=== PATIENT | female | born 1960 | race Caucasian/White ===

== ENCOUNTER → 2016-08-18 | Outpatient (CLI) | payer OTHER ==
[~2016-08-18] MED LIST: ASPEC325 PO; CLB200 PO; CYM/30 PO; ESTR2 PO; LEVO50TA PO; RISP2TAB3 PO
== END | disposition home or self-care (01) ==
LOC: C.CPL 12:03
PROVIDERS: ATTEND Orthopaedic Surgery Sports Medicine
DX: M79.671 Pain in right foot (principal)

== ENCOUNTER → 2017-09-07 | Outpatient (CLI) | payer OTHER | END | disposition home or self-care (01) | LOC: C.CPL 10:57 | PROVIDERS: ATTEND Orthopaedic Surgery | DX: S43.421D Sprain of right rotator cuff capsule, subsequent encounter (principal); X58.XXXD Exposure to other specified factors, subsequent encounter ==

== ENCOUNTER 2020-04-15 11:29 | Inpatient (IN) ==
--- NOTE | 2020-03-18 16:00 | PAT Medication Instructions ---
Medication Instructions Date of Service March 18, 2020 Home Medications levothyroxine 50 mcg PO QAM omeprazole 20 mg PO QAM buspirone 15 mg PO BID estradiol 0.5 mg PO QAM propranolol 40 mg PO BID topiramate 100 mg PO BID trazodone 25 mg PO HS azelastine 2 spray INTRANASAL BID PRN escitalopram oxalate [Lexapro] 10 mg PO QAM Continue as directed estradiol 0.5 mg PO QAM (unless surgeon instructs otherwise) Take morning of surgery With a small sip of water, OTHERWISE NOTHING TO EAT OR DRINK AFTER MIDNIGHT: levothyroxine 50 mcg PO QAM omeprazole 20 mg PO QAM buspirone 15 mg PO BID propranolol 40 mg PO BID topiramate 100 mg PO BID azelastine 2 spray INTRANASAL BID PRN (if needed) escitalopram oxalate [Lexapro] 10 mg PO QAM Take evening before surgery buspirone 15 mg PO BID propranolol 40 mg PO BID topiramate 100 mg PO BID trazodone 25 mg PO HS azelastine 2 spray INTRANASAL BID PRN (if needed) Other Notes If you have any questions please call us at [phone] or [phone] or [phone] or [phone]
--- NOTE | 2020-03-21 13:06 | Anesthesiology Consultation ---
Date of Service March 21, 2020 Assessment & Plan (1) Encounter for pre-operative examination: - Per assessment on 03/21: Travel screen negative. No known COVID-19 positive contacts or current COVID-19 related symptoms. Surgeon arranging preop COVID testing. Awaiting results. - S/P right foot bunionectomy and MTP arthroplasty: 03/31/18: LMA#4 at [facility] Chart Review Chart Review: Acceptable Risk for Surgery (pending surgeon-ordered PCP clearance) and Patient seen in Pre Admission Testing Teaching & Discussion Pre-Anesthesia Teaching/Discussion Notes: Instructed NPO after midnight before surgery,except medications with 15 cc of water. Medication instructions provided according to the PAT guidelines. History Surgery Operation Date: 04/15/20 10:20 Proposed Procedures p Right Shoulder Resurfacing Versus - DO audrey Adrian Hemiarthroplasty Versus - DO audrey Adrian Total Shoulder Arthroplasty - Dimas Quintero DO Height/Weight Height: 5 ft 3.5 in Weight: 75.8 kg Allergies Allergy/AdvReac Type Severity Reaction Status Date / Time Penicillins Allergy Intermediate Hives Verified 03/21/20 13:20 vancomycin Allergy Intermediate Rash Verified 03/21/20 13:20 tramadol Allergy Mild Rash Verified 03/21/20 13:20 tizanidine [From Zanaflex] AdvReac Severe Hallucinati Unverified 03/21/20 13:20 ons metoclopramide [From Reglan] AdvReac Unknown Constipatio Verified 03/21/20 13:20 n morphine AdvReac Unknown N/V Verified 02/29/20 10:43 Medications Home Medications Medication Instructions Recorded Confirmed Last Taken levothyroxine 50 mcg PO QAM 03/02/18 02/29/20 06/08/19 omeprazole 20 mg PO QAM 03/02/18 02/29/20 06/08/19 buspirone 15 mg PO BID 02/05/19 02/29/20 06/08/19 estradiol 0.5 mg PO QAM 02/05/19 02/29/20 06/08/19 propranolol 40 mg PO BID 02/05/19 02/29/20 06/08/19 topiramate 100 mg PO BID 06/08/19 02/29/20 06/08/19 trazodone 25 mg PO HS 01/03/1802/29/20 06/07/19 azelastine 2 spray INTRANASAL BID PRN 02/29/20 02/29/20 Unknown escitalopram oxalate [Lexapro] 10 mg PO QAM 02/29/20 02/29/20 Unknown Past Medical History Medical History (Updated 03/21/20 @ 15:17 by Sienna Friend) Anxiety Claustrophobia Depression DJD (degenerative joint disease) Fatty liver hx Fibromyalgia GERD (gastroesophageal reflux disease) controlled HTN (hypertension) Hypothyroidism Kidney disease, chronic, stage III (moderate, EGFR 30-59 ml/min) Migraine hx, botox injections q3 months, follows with [facility] neurology (Dr. Okeefe) MVP (mitral valve prolapse) no recent echo/no murmur at PAT visit Osteoarthritis Pre-diabetes diet controlled Exercise / Class Metabolic Activity III < 4 Walking/Shop/Light housework Past Family History Family History Father Family history of diabetes mellitus Past Surgical History Surgical History History of colonoscopy History of esophagogastroduodenoscopy (EGD) History of foot surgery R/L great toe surgeries S/P right foot bunionectomy and MTP arthroplasty: 03/31/18: LMA#4 at [facility] History of herniorrhaphy right inguinal repair History of liver biopsy History of partial hysterectomy History of tonsillectomy Hx of arthroscopy of shoulder right x2, left x1 Hx of carpal tunnel repair R/L Hx of section X3 Hx of cholecystectomy Hx of elbow surgery R/L Hx of foot surgery R/L Hx of partial thyroidectomy "left side"/for nodules Hx of thumb surgery R/L "joint removed" Hx of total knee replacement R/L Past Anesthesia History No Hx of Anesthesia Complications (except PONV with remote surgeries) and No Family Hx of Anesthesia Complications History of PONV No Hx of Motion Sickness and History of PONV (with remote surgeries) Social History Smoking Status: Never smoker Do You Dip or Chew Tobacco: No Hx Alcohol Use: No Hx Substance Use: No substance use type: does not use Review of Systems Patient denies chest pain, shortness of breath, dyspnea on exertion, joint pain, reflux, cough, wheezing, palpitations. Physical Exam Vital Signs VITALS BP 114/73 P 59 TEMP 98.1 SP02 98%RA RESP 18 PHYSICAL Full neck and c-spine range of motion. Full TMJ range of motion. TMD 2.5 finger breaths Mallampati Score 2 Dentition: missing molars, upper right side root canal repair Lungs: clear throughout to auscultation Cardiac: regular rate and rhythm, no murmurs noted Spine: normal Carotid arteries: negative bruit Extremities: no edema Testing Laboratory Results PT 10.2 Seconds (9.0-12.0) 03/21/20 13:25 INR 1.0 (0.9-1.1) 03/21/20 13:25 APTT 27.5 Seconds (21.0-31.0) 03/21/20 13:25 Urine Color Yellow 03/21/20 Unknown Urine Appearance Clear (Clear) 03/21/20 Unknown Urine pH 7.5 (4.5-7.5) 03/21/20 Unknown Ur Specific [place] 1.008 (1.000-1.030) 03/21/20 Unknown Urine Protein Negative (Negative) 03/21/20 Unknown Urine Glucose (UA) Negative (Negative) 03/21/20 Unknown Urine Ketones Negative (Negative) 03/21/20 Unknown Urine Nitrite Negative (Negative) 03/21/20 Unknown Ur Leukocyte Esterase Negative (Negative) 03/21/20 Unknown Electrocardiogram Date: 03/21/20 Findings: + NSR @ (61) Chest X-Ray Date: 03/21/20 FINDINGS: PA and lateral chest radiographs are compared to study dated 02/12/2019. The cardiomediastinal silhouette is unremarkable. The lungs and pleural spaces are clear. There is no pneumothorax. The bony thorax appears intact. Cholecystectomy clips are seen in the right upper quadrant. IMPRESSION: No active disease in the chest.
--- NOTE | 2020-03-21 13:46 | XRay Report ---
TWO VIEW CHEST CLINICAL HISTORY: Preoperative examination. FINDINGS: PA and lateral chest radiographs are compared to study dated 02/12/2019. The cardiomediastin al silhouette is unremarkable. The lungs and pleural spaces are clear. There is no pneumothorax. The bony thorax appears intact. Cholecystectomy clips are seen in the right upper quadrant. IMPRESSION: No active disease in the chest. ACT 112: Negative or not required by law. Electronically signed by: Flavio Arriola M.D. 03/21/2020 1:45 PM
--- NOTE | 2020-03-21 14:14 | Electrocardiogram Report ---
Test Reason : Blood Pressure : / mmHG Vent. Rate : 061 BPM Atrial Rate : 061 BPM P-R Int : 128 ms QRS Dur : 080 ms QT Int : 438 ms P-R-T Axes : 048 052 043 degrees QTc Int : 440 ms Normal sinus rhythm Normal ECG When compared with ECG of 12-FEB-2019 15:30, No significant change was found Confirmed by Silverio Dukes ([id number]) on 03/21/2020 2:14:07 PM Referred By: Dimas Quintero Confirmed By:Silverio Dukes
[2020-03-21 14:32] LABS: Appearance Urine Clear (Clear); Bilirubin Urine Negative (Negative); Blood Urine Negative (Negative); Color Urine Yellow; Glucose Urine UA Negative (Negative); Ketones Urine Negative (Negative); Leukocyte Esterase Urine Negative (Negative); Nitrite Urine Negative (Negative); Protein Urine Negative (Negative); Specific Gravity Urine 1.008 (1.000-1.030); Urobilinogen Urine Negative (Negative); pH Urine 7.5 (4.5-7.5)
[2020-03-21 14:43] LABS: Partial Thromboplastin Time 27.5 Seconds (21.0-31.0); Prothrombin Time 10.2 Seconds (9.0-12.0)
--- NOTE | 2020-03-26 11:55 | History & Physical Report ---
Date of Service March 26, 2020 date of surgery: 04/15/20 procedure: Right Shoulder Resurfacing Versus total shoulder replacement Assessment & Plan (1) Degenerative arthritis of right shoulder region: Risks and benefits of procedure discussed in detail today, patient would like to proceed with a right shoulder resurfacing vs TSA at [facility] as scheduled. will obtain medical clearance prior to surgery as well as obtain PATs at [facility]. Will f/u 2 weeks post op for routine post-operative care and x-ray, sooner if having any problems. will make arrangements for HHPT at the time of discharge. At this point in time, has failed conservative measures and would like to proceed with surgical intervention. History of Present Illness Chief Complaint: right shoulder pain Primary Care Provider: Shane Lorenzo DO Ms Casas is a 59 year old female who is here for a follow up of right shoulder pain, presents for pre op eval prior to right shoulder resurfacing vs total shoulder replacement at [facility]. She presents with pain and decreased range of motion. She states that the symptoms have been chronic non-traumatic and occurs intermittently. The problem is unchanged. Currently the patient states that the symptoms are moderate-severe. The pain is described as aching and throbbing. The symptoms occur intermittently. She rates her current pain as 6/10. The symptoms are aggravated by daily activities, rotation, repetitive activities and sleeping on the affected side. Fannie states that the symptoms are relieved by no specific activity. In addition to right shoulder pain the patient is also experiencing decreased mobility, difficulty initiating sleep and weakness. The patient has had a previous x-ray and MRI. Patient had cortisone and visco injections. Allergies Allergy/AdvReac Type Severity Reaction Status Date / Time Penicillins Allergy Intermediate Hives Verified 03/21/20 13:20 vancomycin Allergy Intermediate Rash Verified 03/21/20 13:20 tramadol Allergy Mild Rash Verified 03/21/20 13:20 tizanidine [From Zanaflex] AdvReac Severe Hallucinati Unverified 03/21/20 13:20 ons metoclopramide [From Reglan] AdvReac Unknown Constipatio Verified 03/21/20 13:20 n morphine AdvReac Unknown N/V Verified 02/29/20 10:43 Home Medications Home Medications Medication Instructions Recorded Confirmed Type levothyroxine 50 mcg PO QAM 03/02/18 02/29/20 History omeprazole 20 mg PO QAM 03/02/18 02/29/20 History buspirone 15 mg PO BID 02/05/19 02/29/20 History estradiol 0.5 mg PO QAM 02/05/19 02/29/20 History propranolol 40 mg PO BID 02/05/19 02/29/20 History topiramate 100 mg PO BID 06/08/19 02/29/20 History trazodone 25 mg PO HS 06/08/19 02/29/20 History azelastine 2 spray INTRANASAL BID PRN 02/29/20 02/29/20 History escitalopram oxalate [Lexapro] 10 mg PO QAM 02/29/20 02/29/20 History Past Med/Surg History Medical History Anxiety Claustrophobia Depression DJD (degenerative joint disease) Fatty liver hx Fibromyalgia GERD (gastroesophageal reflux disease) controlled HTN (hypertension) Hypothyroidism Kidney disease, chronic, stage III (moderate, EGFR 30-59 ml/min) Migraine hx, botox injections q3 months, follows with [facility] neurology (Dr. Okeefe) MVP (mitral valve prolapse) no recent echo/no murmur at PAT visit Osteoarthritis Pre-diabetes diet controlled Surgical History History of colonoscopy History of esophagogastroduodenoscopy (EGD) History of foot surgery R/L great toe surgeries S/P right foot bunionectomy and MTP arthroplasty: 03/31/18: LMA#4 at [facility] History of herniorrhaphy right inguinal repair History of liver biopsy History of partial hysterectomy History of tonsillectomy Hx of arthroscopy of shoulder right x2, left x1 Hx of carpal tunnel repair R/L Hx of section X3 Hx of cholecystectomy Hx of elbow surgery R/L Hx of foot surgery R/L Hx of partial thyroidectomy "left side"/for nodules Hx of thumb surgery R/L "joint removed" Hx of total knee replacement R/L Family History Father Family history of diabetes mellitus Social History Smoking Status: Never smoker Second Hand Exposure: No; Do You Dip or Chew Tobacco: No; Hx Alcohol Use: No Hx Substance Use: No Preferred Language: Thai Communication Ability: Effective Safety Physician Required: No Beliefs That Will Affect Care: None Current Living Situation: Spouse Other Information That Helps Us Care for You: No Feels Safe at Home: Yes Safety Concerns: Feels Safe At This Time Assistive Devices: Glasses Review of Systems Review of Systems: All systems reviewed & are unremarkable except as noted in HPI & below Constitutional: no fever, no chills and no sweats Respiratory: no cough and no dyspnea Cardiovascular: no chest pain, no dyspnea and no orthopnea Gastrointestinal: no abdominal pain, no nausea and no vomiting Musculoskeletal: as per Subjective / HPI Physical Exam Physical Exam: HT: 5ft 3in WT: 75.8kg Constitutional: WD/WN, vitals as above no acute distress Respiratory: normal respiratory effort, lungs clear to auscultation no respiratory distress, no labored breathing and does not use accessory muscles Cardiovascular: RRR, no murmur, no edema Gastrointestinal (Abdomen): normal bowel sounds, soft, nontender, no hepatosplenomegaly Musculoskeletal: Right Shoulder: there is no ecchymosis, mild crepitation with active motion, Tenderness anterior aspect shoulder and AC joint. Belly press - Positive. Thayer Positive. Cross Body Positive. Neer's - positive. Strength tests - External rotation 4/5, Supraspinatus 4/5 no atrophy, Right shoulder ROM Active ROM - Flexion: 120 degrees, Ext Rot 90 Flex: 30 degrees, Abduction: 45 degrees, Factors: pain, Description: Pain with ROM. Passive ROM - Factors: pain. Neurovascular- Radial pulse palpable, radial/median/ulnar nerves intact. Results & Data Results & Data ([facility]) Laboratory Results Laboratory Results PT 10.2 Seconds (9.0-12.0) 03/21/20 13:25 INR 1.0 (0.9-1.1) 03/21/20 13:25 APTT 27.5 Seconds (21.0-31.0) 03/21/20 13:25 PTT Ratio 1.0 03/21/20 13:25 Albumin 3.3 gm/dl (3.4-5.0) L 03/21/20 13:25 Urine Color Yellow 03/21/20 Unknown Urine Appearance Clear (Clear) 03/21/20 Unknown Urine pH 7.5 (4.5-7.5) 03/21/20 Unknown Ur Specific [place] 1.008 (1.000-1.030) 03/21/20 Unknown Urine Protein Negative (Negative) 03/21/20 Unknown Urine Glucose (UA) Negative (Negative) 03/21/20 Unknown Urine Ketones Negative (Negative) 03/21/20 Unknown Urine Blood Negative (Negative) 03/21/20 Unknown Urine Nitrite Negative (Negative) 03/21/20 Unknown Urine Bilirubin Negative (Negative) 03/21/20 Unknown Urine Urobilinogen Negative (Negative) 03/21/20 Unknown Ur Leukocyte Esterase Negative (Negative) 03/21/20 Unknown Blood Type AB Negative 03/21/20 13:25 Antibody Screen NEGATIVE 03/21/20 13:25 Diagnostic Findings right shoulder imaging showing degenerative changes noted glenohumeral joint, with joint space narrowing and osteophyte formation. no acute bony pathology.
[~2020-04-15 11:29] MED LIST changes: +ACETAMINOPHEN 500 MG TAB PO SCH; -ASPEC325 PO; -CLB200 PO; -CYM/30 PO; +CeleBREX 200 MG CAP PO SCH; +DEXAMETHASONE SOD INJ 4 MG/ML VIAL ONE; +EPINEPHrine INJ 1 MG/ML AMP ONE; -ESTR2 PO; +FAMOTIDINE 20 MG TAB PO SCH; +GABAPENTIN 600 MG DOSE PO SCH; -LEVO50TA PO; +LR 15ML/HR IV SCH; +METOCLOPRAMIDE HCL 10 MG TABLET PO SCH; -RISP2TAB3 PO; +ROPIVACAINE 0.5% 5 MG/ML 30 ML VIAL ONE; +ROPIVACAINE 0.5% HCL/PF 150 MG, BUPIVACAINE 0.5% MPF 30 ML, EPINEPHrine 30MG/30ML (OR U... INSTIL SCH; +TRANEXAMIC ACID 1,000 MG **IV Intra-op IV SCH; +TRANEXAMIC ACID 1,000 MG **IV Pre-op IV SCH; +ceFAZolin 1000MG 1,000 MG/7.5 ML SYR IV SCH; +dexAMETHasone 4 MG TAB PO SCH
[2020-04-15] MEDS ORDERED: fentaNYL citrate 100 MCG/2 ML VIAL ONE (13:00)
[2020-04-15] MEDS ORDERED: MIDAZOLAM HCL 1 MG/ML 2ML VIAL ONE ×2 (13:00)
[2020-04-15] MEDS ORDERED: LIDOCAINE HCL 2% 2 ML VIAL/AMP(20MG/ML) INFIL ONE (13:00)
[2020-04-15] MEDS ORDERED: ONDANSETRON INJ 2 MG/ML 2 ML VIAL ONE (13:00)
[2020-04-15] MEDS ORDERED: PROPOFOL IV EMULSION 10 MG/ML 20 ML VIAL IV ONE (13:00)
[2020-04-15] MEDS ORDERED: GLYCOPYRROLATE 0.2 MG/ML VIAL ONE (13:00)
[2020-04-15] MEDS ORDERED: DEXAMETHASONE SOD INJ 4 MG/ML VIAL ONE (13:00)
[2020-04-15] MEDS ORDERED: NEOSTIGMINE METHYLSULFATE 5 MG/5 ML SYR ONE (13:00)
--- NOTE | 2020-04-15 13:07 | History & Physical Bridge Note ---
Date of Service April 15, 2020 History & Physical Bridge Note I have examined the patient, reviewed the History & Physical and in the interval since the performance of the History & Physical I have noted the following changes of clinical significance: no changes noted
[2020-04-15] MEDS ORDERED: BACITRACIN INJ 50,000 UNIT VIAL ONE (13:34)
[2020-04-15] MEDS ORDERED: ORTHO JOINT ANESTHETIC ONE (13:34)
[2020-04-15] MEDS ORDERED: HYDROmorphone INJ 1 MG/ML SYRINGE IV PRN (13:54)
[2020-04-15] MEDS ORDERED: ONDANSETRON INJ 2 MG/ML 2 ML VIAL IV PRN ×2 (13:54→17:47)
[2020-04-15] MEDS ORDERED: ATROPINE SULFATE 0.1 MG/ML 10ML SYR IV PRN (13:54)
[2020-04-15] MEDS ORDERED: FLUMAZENIL 0.1 MG/1 ML 10 ML VIAL IV PRN (13:54)
[2020-04-15] MEDS ORDERED: NALOXONE HCL 0.4 MG/1 ML VIAL/CARP IV PRN ×2 (13:54→17:47)
[2020-04-15] MEDS ORDERED: ePHEDrine sulfate 50 MG/ML AMP IV PRN (13:54)
[2020-04-15] MEDS ORDERED: fentaNYL citrate 100 MCG/2 ML VIAL IV PRN (13:54)
[2020-04-15] MEDS ORDERED: LABETALOL HCL IV 5 MG/ML 20ML IV PRN (13:54)
[2020-04-15] MEDS ORDERED: PROMETHAZINE HCL 12.5 MG in SODIUM CHLORIDE 0.9% 50 ML IV PRN (13:54)
--- NOTE | 2020-04-15 15:39 | Operative Report ---
Post Operative Report Pre & Post Diagnosis Operation Date: 04/15/20 13:25 Pre-Op Diagnosis: Primary Osteoarthritis, Right Shoulder Post-Op Diagnosis: Primary Osteoarthritis, Right Shoulder I identified the patient and participated in the time-out.: Yes Procedure Operation Date: 04/15/20 13:25 Actual Procedures p Right Shoulder Resurfacing(Right) utilizingTournier 43 x 16 resurfacing hemiarthroplasty- Dimas Quintero DO Surgeon Dimas Quintero DO Piece Hand Jeramy BERGER Estimated Blood Loss 15 Findings Consistent with Post-Op Diagnosis Patient presents with grade 4 glenohumeral DJD involving humeral head multiple arthroscopies with eburnated bone failed attempted conservative management she had inferior osteophytes no rotator cuff tear eburnated humeral head articular cartilage Specimens Bone and cartilage Drains Medium bore Hemovac Anesthesia Type General Regional Disposition Accompanied Patient To Recovery: No Disposition: Recovery Room Indications Patient presents for right glenohumeral resurfacing after failed attempted conservative management with multiple arthroscopies over a period of 20 years with arthroscopic evidence of grade 4 humeral articular surface inferior osteophytes narrowed joint space she is failed times it conservative management clinic physical therapy anti-inflammatories Visco supplementations relative rest and activity modification Description of Procedure After initiation of general anesthesia with a scalene block the right extremity socially prepped draped sterile fashion with surgery slightly deltopectoral incision was made dissection carried down through subtenons tissues to the region of deltopectoral interval the cephalic vein was carefully retracted lateralward with the deltoid muscle the interval was developed to the region of the anterior aspect of the subscapularis the subscapularis was evaluated and was of some reflected off the anterior humeral head and with the 4 stay sutures of #0 Ethibond there was no be evident evidence of a glenohumeral with with with humeral head grade 4 eburnated exposed bone with inferior osteophytes noted wh ich were removed the humeral head was externally rotated and delivered from the wound the wound was irrigated this for the glenoid was inspected the glenoid labrum was inspected was not torn or detached the glenoid was inspected and the cartilage to be in satisfactory condition subsequently the humeral head was sized to a 43 x 16 gave anatomic recreation of normal anatomy socially this was reversed reamed after placement of the pin in the humeral head all bony material in the cartilage shavings were removed the wound was irrigated once again a trial was placed excellent stability both anterior posterior inferior superior was noted the subsequently now 3 a #5 FiberWire's were placed through a bony portion of the lateral humeral head in the region of the lesser tuberosity for reapproximation of the subscapularis back to bone later subsequently the final component was placed and was tapped tapped into position with the Vizcaino tap and noted to be excellent fixation subsequently the sutures were used to repair the subscapularis tendon back to the region of the footprint of the previous attachment site biceps tendon was protected at all times the repair was reinforced with #0 Ethibond which been placed as retraction sutures were interval was closed with #1 Vicryl subcu was closed deltopectoral oval was closed with #0 Vicryl subcuticular 3-0 Vicryl skin was closed skin clips sterile compressive dressings placed a medium Hemovac in place in the deep wound please note AB [place] was necessary prepping draping retraction wound closure of defect subcu skin was necessary for the case I attest to the content of the Intraoperative Record and any orders documented therein. Any exceptions are noted below.
[2020-04-15] MEDS ORDERED: ROCURONIUM BROMIDE 10 MG/ML 5 ML VIAL IV ONE (15:40)
--- NOTE | 2020-04-15 16:28 | Anesthesiology Progress Note ---
Date of Service April 15, 2020 Anesthesia Post Procedure Vital Signs Vital Signs: Temp Pulse Resp BP Pulse Ox 04/15/20 16:20 79 16 123/72 97 04/15/20 16:10 82 16 108/61 97 04/15/20 16:00 36.4 C L 86 16 109/68 95 04/15/20 12:26 36.8 C 62 20 132/68 97 Pain Intensity Bilateral Shoulder: Pain Intensity: 8 Neck: Pain Intensity: 8 Lower Back: Pain Intensity: 8 Transfer of Care Handoff Completed per policy Notes Mental Status: alert / awake / arousable and participated in evaluation Patient Amnestic to Procedure: Yes Nausea / Vomiting: adequately controlled Pain: adequately controlled Airway Patency, RR, SpO2: stable & adequate BP & HR: stable & adequate Hydration State: stable & adequate Anesthetic Complications: no major complications apparent and Pt Satisfied with anesthetic care
--- NOTE | 2020-04-15 16:37 | XRay Report ---
XR shoulder RT min 2V routine CLINICAL HISTORY: Post shoulder surgery COMPARISON: None FINDINGS: Alignment of the right shoulder resurfacing is anatomic. There is no fracture. There is no unexpected radiopaque foreign body. A previous distal right clavicular resection is noted. There are skin shayy. IMPRESSION: Expected findings following right shoulder resurfacing. ACT 112: Negative or not required by law. Electronically signed by: Adi Momin M.D. 04/15/2020 4:36 PM
[2020-04-15] MEDS ORDERED: MAGNESIUM HYDROXIDE SUSP 30 ML UDC PO PRN (17:47)
[2020-04-15] MEDS ORDERED: oxyCODONE HCL IR 5 MG TAB (IMMEDIATE RELEASE) PO PRN (17:47)
[2020-04-15] MEDS ORDERED: bisacodyL 10 MG SUPP PR PRN (17:47)
[2020-04-15] MEDS ORDERED: HYDROmorphone INJ 0.5 MG/0.5 ML SYR IV PRN (17:47)
[2020-04-15] MEDS ORDERED: SODIUM CHLORIDE 0.9% 1000ML 1,000 ML IV SCH (19:00)
[2020-04-15] MEDS: PROPRANOLOL HCL 20 MG TAB PO SCH (20:43)
[2020-04-15] MEDS: DOCUSATE SODIUM 100 MG CAP PO SCH (20:44)
[2020-04-15] MEDS: busPIRone 15 MG TAB PO SCH (20:44)
[2020-04-15] MEDS: TOPIRAMATE 100 MG TAB PO SCH (20:45)
[2020-04-15] MEDS ORDERED: traZODone HCL 50 MG TAB PO SCH (21:00)
[2020-04-15] MEDS ORDERED: SENNA 8.6 MG TAB PO SCH (21:00)
[2020-04-15] MEDS: CLINDAMYCIN 600 MG in DEXTROSE 5% 50 ML IV SCH (22:31)
[2020-04-15] MEDS: ACETAMINOPHEN 500 MG TAB PO SCH (22:32)
[2020-04-16] MEDS: CLINDAMYCIN 600 MG in DEXTROSE 5% 50 ML IV SCH (05:31)
[2020-04-16] MEDS: ACETAMINOPHEN 500 MG TAB PO SCH (05:31)
[2020-04-16 06:16] LABS: Hematocrit (blood only) 38.5 % (37-47); Hemoglobin 12.4 g/dL (12.0-16.0); Immature Granulocytes # (auto) 0.02 K/uL (0.00-0.02); Immature Granulocytes % (auto) 0.2 %; Lymphocytes # (auto) 1.44 K/uL (1.2-3.4); Lymphocytes % (auto) 12.1 %; Mean Corpuscular Hemoglobin 29.7 pg (25-34); Mean Corpuscular Hgb Conc 32.2 g/dL (32-36); Mean Corpuscular Volume 92.1 fL (80-100); Mean Platelet Volume 10.7 fL (7.4-10.4); Monocytes # (auto) 0.46 K/uL (0.11-0.59); Monocytes % (auto) 3.9 %; Neutrophils # (auto) 9.97 K/uL (1.4-6.5); Neutrophils % (auto) 83.8 %; Platelet Count 319 K/uL (130-400); RDW Standard Deviation 46.7 fL (36.4-46.3); Red Blood Count 4.18 M/uL (4.2-5.4); White Blood Count 11.89 K/uL (4.8-10.8)
[2020-04-16] MEDS ORDERED: LEVOTHYROXINE SODIUM 50 MCG TABLET PO SCH (06:30)
[2020-04-16 06:37] LABS: BUN Creatinine Ratio 10.6 (10-20); Calcium 8.6 mg/dl (8.5-10.1); Creatinine Clr Calc Pharmacy 52.8 ml/min; Est GFR (African American) 62.1; Est GFR (Non-African American) 53.6; Potassium 3.7 mmol/L (3.5-5.1)
[2020-04-16] MEDS: busPIRone 15 MG TAB PO SCH (08:55)
[2020-04-16] MEDS: DOCUSATE SODIUM 100 MG CAP PO SCH (08:55)
[2020-04-16] MEDS: TOPIRAMATE 100 MG TAB PO SCH (08:55)
[2020-04-16] MEDS: PROPRANOLOL HCL 20 MG TAB PO SCH (08:56)
[2020-04-16] MEDS ORDERED: MULTIVITAMIN TAB PO SCH (09:00)
[2020-04-16] MEDS ORDERED: ESCITALOPRAM OXALATE 10 MG TAB PO SCH (09:00)
[2020-04-16] MEDS ORDERED: ASPIRIN 81 MG ECTAB PO SCH (09:00)
--- NOTE | 2020-04-16 09:26 | Orthopedic Progress Note ---
Date of Service April 16, 2020 Assessment & Plan (1) Status post right shoulder hemiarthroplasty: POD #1 s/p Right shoulder resurfacing hemiarthroplasty pt/ot plan for d/c home later today Admission and Anticipated Discharge Date Admission Date: April 15, 2020 Subjective POD #1 s/p Right shoulder resurfacing Review of Systems Constitutional: no fever, no chills and no sweats Respiratory: no cough and no dyspnea Cardiovascular: no chest pain and no dyspnea Gastrointestinal: no abdominal pain, no nausea and no vomiting Physical Exam Physical Exam: Vital Signs Temp 36.8 C 04/16/20 08:00 Pulse 54 L 04/16/20 08:00 Resp 16 04/16/20 08:00 BP 107/66 04/16/20 08:00 Pulse Ox 95 04/16/20 08:00 Intake & Output 04/15/20 04/16/20 04/16/20 18:59 06:59 18:59 Intake Total 1400 / 3166 1766 / 3166 Output Total 15 / 2865 2850 / 2865 Balance 1385 / 301 -1084 / 301 Weight 76.907 kg Intake: IV 400 / 1316 916 / 1316 Cleocin 600 mg In D5w 50 ml @ 108 / 108 100 mls/hr IV Q8H [facility] Rx#: [id number] Lr 1,000 ml @ 15 mls/hr IV . 200 / 200 Q24H [facility] Rx#:[id number] Nss 1000ML 1,0 00 ml @ 80 mls/hr 808 / 808 IV .[id number] [facility] Rx#:[id number] TRANEXAMIC ACI D / 0.7% NACL 1, 200 / 200 000 mg In 100 ml @ 600 mls/hr IV TODAY@0600 [facility] Rx#:[id number] IV Perioperative 1000 / 1000 Oral 850 / 850 Output: Urine 2850 / 2850 Estimated Blood Loss 15 / 15 Other: Weight Measureme nt Method Standing Scale Constitutional: WD/WN, vitals as above no acute distress Musculoskeletal: Right arm: NVDI, Radial +2, dressing clean dry and intact. rad/med/ulnar nerves intact Results & Data ([facility]) Vital Signs (Past 12 Hours) Vital Signs Temp Pulse Resp BP Pulse Ox 04/16/20 08:00 36.8 C 54 L 16 107/66 95 04/16/20 03:14 36.7 C 60 16 108/69 93 04/15/20 23:16 36.5 C 71 16 109/69 94 Laboratory Results Laboratory Results WBC 11.89 K/uL (4.8-10.8) H 04/16/20 05:44 RBC 4.18 M/uL (4.2-5.4) L 04/16/20 05:44 Hgb 12.4 g/dL (12.0-16.0) 04/16/20 05:44 Hct 38.5 % (37-47) 04/16/20 05:44 MCV 92.1 fL (80-100) 04/16/20 05:44 MCH 29.7 pg (25-34) 04/16/20 05:44 MCHC 32.2 g/dL (32-36) 04/16/20 05:44 RDW Std Deviation 46.7 fL (36.4-46.3) H 04/16/20 05:44 RDW Coeff of Marilyn 14.0 % (11.5-14.5) 04/16/20 05:44 Plt Count 319 K/uL (130-400) 04/16/20 05:44 MPV 10.7 fL (7.4-10.4) H 04/16/20 05:44 Immature Gran % (Auto) 0.2 % 04/16/20 05:44 Neut % (Auto) 83.8 % 04/16/20 05:44 Lymph % (Auto) 12.1 % 04/16/20 05:44 [place] % (Auto) 3.9 % 04/16/20 05:44 Eos % (Auto) 0.0 % 04/16/20 05:44 Baso % (Auto) 0.0 % 04/16/20 05:44 Neut # (Auto) 9.97 K/uL (1.4-6.5) H 04/16/20 05:44 Lymph # (Auto) 1.44 K/uL (1.2-3.4) 04/16/20 05:44 [place] # (Auto) 0.46 K/uL (0.11-0.59) 04/16/20 05:44 Eos # (Auto) 0.00 K/uL (0-0.5) 04/16/20 05:44 Baso # (Auto) 0.00 K/uL (0-0.2) 04/16/20 05:44 Immature Gran # (Auto) 0.02 K/uL (0.00-0.02) 04/16/20 05:44 PT 10.2 Seconds (9.0-12.0) 03/21/20 13:25 INR 1.0 (0.9-1.1) 03/21/20 13:25 APTT 27.5 Seconds (21.0-31.0) 03/21/20 13:25 PTT Ratio 1.0 03/21/20 13:25 Sodium 139 mmol/L (136-145) 04/16/20 05:44 Potassium 3.7 mmol/L (3.5-5.1) 04/16/20 05:44 Chloride 110 mmol/L (98-107) H 04/16/20 05:44 Carbon Dioxide 22 mmol/L (21-32) 04/16/20 05:44 Anion Gap 7.0 (3-11) 04/16/20 05:44 BUN 12 mg/dl (7-18) 04/16/20 05:44 Creatinine 1.11 mg/dl (0.6-1.2) 04/16/20 05:44 Est Cr Clr Drug Dosing 52.8 ml/min 04/16/20 05:44 Est GFR ( Amer) 62.1 04/16/20 05:44 Est GFR (Non-Af Amer) 53.6 04/16/20 05:44 BUN/Creatinine Ratio 10.6 (10-20) 04/16/20 05:44 Glucose 122 mg/dl (70-99) H 04/16/20 05:44 POC Glucose 92 mg/dl (70-99) 04/15/20 11:56 Calcium 8.6 mg/dl (8.5-10.1) 04/16/20 05:44 Albumin 3.3 gm/dl (3.4-5.0) L 03/21/20 13:25 Urine Color Yellow 03/21/20 Unknown Urine Appearance Clear (Clear) 03/21/20 Unknown Urine pH 7.5 (4.5-7.5) 03/21/20 Unknown Ur Specific [place] 1.008 (1.000-1.030) 03/21/20 Unknown Urine Protein Negative (Negative) 03/21/20 Unknown Urine Glucose (UA) Negative (Negative) 03/21/20 Unknown Urine Ketones Negative (Negative) 03/21/20 Unknown Urine Blood Negative (Negative) 03/21/20 Unknown Urine Nitrite Negative (Negative) 03/21/20 Unknown Urine Bilirubin Negative (Negative) 03/21/20 Unknown Urine Urobilinogen Negative (Negative) 03/21/20 Unknown Ur Leukocyte Esterase Negative (Negative) 03/21/20 Unknown Blood Type AB Negative 03/21/20 13:25 Antibody Screen NEGATIVE 03/21/20 13:25 Diagnostic Findings XR shoulder RT min 2V routine CLINICAL HISTORY: Post shoulder surgery COMPARISON: None FINDINGS: Alignment of the right shoulder resurfacing is anatomic. There is no fracture. There is no unexpected radiopaque foreign body. A previous distal right clavicular resection is noted. There are skin shayy. IMPRESSION: Expected findings following right shoulder resurfacing.
--- NOTE | 2020-04-17 14:31 | Discharge Summary ---
Date of Service April 17, 2020 Admission HPI Per Admitting Provider Ms Casas is a 59 year old female who is here for a follow up of right shoulder pain, presents for pre op eval prior to right shoulder resurfacing vs total shoulder replacement at [facility]. She presents with pain and decreased range of motion. She states that the symptoms have been chronic non-traumatic and occurs intermittently. The problem is unchanged. Currently the patient states that the symptoms are moderate-severe. The pain is described as aching and throbbing. The symptoms occur intermittently. She rates her current pain as 6/10. The symptoms are aggravated by daily activities, rotation, repetitive activities and sleeping on the affected side. Fannie states that the symptoms are relieved by no specific activity. In addition to right shoulder pain the patient is also experiencing decreased mobility, difficulty initiating sleep and weakness. The patient has had a previous x-ray and MRI. Patient had cortisone and visco injections. Admission Exam Per Admitting Provider Physical Exam: HT: 5ft 3in WT: 75.8kg Constitutional: WD/WN, vitals as above no acute distress Respiratory: normal respiratory effort, lungs clear to auscultation no respiratory distress, no labored breathing and does not use accessory muscles Cardiovascular: RRR, no murmur, no edema Gastrointestinal (Abdomen): normal bowel sounds, soft, nontender, no hepatosplenomegaly Musculoskeletal: Right Shoulder: there is no ecchymosis, mild crepitation with active motion, Tenderness anterior aspect shoulder and AC joint. Belly press - Positive. Thayer Positive. Cross Body Positive. Neer's - positive. Strength tests - External rotation 4/5, Supraspinatus 4/5 no atrophy, Right shoulder ROM Active ROM - Flexion: 120 degrees, Ext Rot 90 Flex: 30 degrees, Abduction: 45 degrees, Factors: pain, Description: Pain with ROM. Passive ROM - Factors: pain. Neurovascular- Radial pulse palpable, radial/median/ulnar nerves intact. Principal Diagnosis Right Shoulder Djd Discharge Exam Physical Exam: Vital Signs Temp 36.8 C 04/16/20 08:00 Pulse 54 L 04/16/20 08:00 Resp 16 04/16/20 08:00 BP 107/66 04/16/20 08:00 Pulse Ox 95 04/16/20 08:00 Intake & Output 04/15/20 04/16/20 04/16/20 18:59 06:59 18:59 Intake Total 1400 / 3166 1766 / 3166 Output Total 15 / 2865 2850 / 2865 Balance 1385 / 301 -1084 / 301 Weight 76.907 kg Intake: IV 400 / 1316 916 / 1316 Cleocin 600 mg In D5w 50 ml @ 108 / 108 100 mls/hr IV Q8H [facility] Rx#: [id number] Lr 1,000 ml @ 15 mls/hr IV . 200 / 200 Q24H [facility] Rx#:[id number] Nss 1000ML 1,0 00 ml @ 80 mls/hr 808 / 808 IV .[id number] [facility] Rx#:[id number] TRANEXAMIC ACI D / 0.7% NACL 1, 200 / 200 000 mg In 100 ml @ 600 mls/hr IV TODAY@0600 [facility] Rx#:[id number] IV Perioperative 1000 / 1000 Oral 850 / 850 Output: Urine 2850 / 2850 Estimated Blood Loss Other: Weight Measureme nt Method Standing Scale Constitutional: WD/WN, vitals as above no acute distress Musculoskeletal: Right arm: NVDI, Radial +2, dressing clean dry and intact. rad/med/ulnar nerves intact Discharge Data Allergies Allergy/AdvReac Type Severity Reaction Status Date / Time Penicillins Allergy Intermediate Hives Verified 04/15/20 12:18 vancomycin Allergy Intermediate Rash Verified 04/15/20 12:18 tramadol Allergy Mild Rash Verified 04/15/20 12:18 tizanidine [From Zanaflex] AdvReac Severe Hallucinati Verified 04/15/20 12:18 ons metoclopramide [From Reglan] AdvReac Unknown Constipatio Verified 04/15/20 12:18 n morphine AdvReac Unknown N/V Verified 04/15/20 12:18 Procedures Performed Operation Date: 04/15/20 13:25 Actual Procedures p Right Shoulder Resurfacing(Right) - Dimas Quintero DO Ordered Studies 04/15/20 05:00 US - OR guided needle placemen Routine Hospital Course (1) Degenerative arthritis of right shoulder region: Date of Service April 16, 2020 Assessment & Plan (1) Status post right shoulder hemiarthroplasty: POD #1 s/p Right shoulder resurfacing hemiarthroplasty pt/ot plan for d/c home later today Pt progressed well with PT/OT. VSS. Pt was dc'd to home in satisfactory condition. Admission and Anticipated Discharge Date Admission Date: April 15, 2020 Subjective POD #1 s/p Right shoulder resurfacing Review of Systems Constitutional: no fever, no chills and no sweats Respiratory: no cough and no dyspnea Cardiovascular: no chest pain and no dyspnea Gastrointestinal: no abdominal pain, no nausea and no vomiting Physical Exam Physical Exam: Vital Signs Temp 36.8 C 04/16/20 08:00 Pulse 54 L 04/16/20 08:00 Resp 16 04/16/20 08:00 BP 107/66 04/16/20 08:00 Pulse Ox 95 04/16/20 08:00 Intake & Output 04/15/20 04/16/20 04/16/20 18:59 06:59 18:59 Intake Total 1400 / 3166 1766 / 3166 Output Total 15 / 2865 2850 / 2865 Balance 1385 / 301 -1084 / 301 Weight 76.907 kg Intake: IV 400 / 1316 916 / 1316 Cleocin 600 mg In D5w 50 ml @ 108 / 108 100 mls/hr IV Q8H [facility] Rx#: [id number] Lr 1,000 ml @ 15 mls/hr IV . 200 / 200 Q24H [facility] Rx#:[id number] Nss 1000ML 1,0 00 ml @ 80 mls/hr 808 / 808 IV .[id number] [facility] Rx#:[id number] TRANEXAMIC ACI D / 0.7% NACL 1, 200 / 200 000 mg In 100 ml @ 600 mls/hr IV TODAY@0600 [facility] Rx#:[id number] IV Perioperative 1000 / 1000 Oral 850 / 850 Output: Urine 2850 / 2850 Estimated Blood Loss 15 / 15 Other: Weight Measureme nt Method Standing Scale Constitutional: WD/WN, vitals as above no acute distress Musculoskeletal: Right arm: NVDI, Radial +2, dressing clean dry and intact. rad/med/ulnar nerves intact Results & Data ([facility]) Vital Signs (Past 12 Hours) Vital Signs Temp Pulse Resp BP Pulse Ox 04/16/20 08:00 36.8 C 54 L 16 107/66 95 04/16/20 03:14 36.7 C 60 16 108/69 93 04/15/20 23:16 36.5 C 71 16 109/69 94 Laboratory Results Laboratory Results WBC 11.89 K/uL (4.8-10.8) H 04/16/20 05:44 RBC 4.18 M/uL (4.2-5.4) L 04/16/20 05:44 Hgb 12.4 g/dL (12.0-16.0) 04/16/20 05:44 Hct 38.5 % (37-47) 04/16/20 05:44 Total Time Total Time Spent Total Time Spent (In Minutes): 5 Discharge Plan Discharge Items Patient Disposition: Home - Self-Care Reason For Visit: Primary Osteoarthritis, Right Shoulder Discharge Diagnosis: right shoulder resurfacing Condition on Discharge: Good Activity: Per Instructions section Lifting: Wait until after follow-up appointment Driving/Machine Use: no driving until cleared by your surgeon Non-emergency contact: Surgeon Call non-emergency contact if: you have any medication questions, your temperat ure is above 101, your wound has increased redness, your wound has increased drainage and your wound pain has increased Follow-up/Referrals: Shane Lorenzo, [Primary Care Provider] - Diet: Regular Addtl Attending Provider Instructions: ACTIVITY RECOMMENDATIONS: SELF CARE INSTRUCTIONS AFTER SHOULDER RESURFACING A. You may do daily exercises as taught in physical therapy while in hospital. No lifting with the operative arm. Please schedule your outpatient physical therapy appointment to begin within 2-3 days after leaving the hospital. Specific restrictions will be written on your physical therapy prescription that is provided to you. B. You are to wear your sling/immobilizer at all times EXCEPT when performing your daily exercises, participating in physical therapy and for hygiene purposes. C. You may perform dry, daily dressing changes. Please keep your incision covered. You may shower 48 hours after surgery. Do not apply soap or any ointment/lotions directly over incision. Do not soak incision in bath tub/swimming pool. D. You may use ice as needed to operative shoulder. SPECIAL CARE INSTRUCTIONS: VERY IMPORTANT TO READ AND REVIEW A. There are a few signs you need to watch for after you are home. Call [facility] at [phone] if you experience any of the followin. Increased severe shoulder pain. Some pain is expected especially when you exercise. 2. Increased swelling in you shoulder or arm; pain or swelling in either upper extremity. 3. Any fluid drainage from the incision. 4. Shortness of breath or chest pain. B. Please call [facility] at [phone] if you have any questions or concerns about your operation or recovery. C. Call your physician if: 1. Temperature is greater than 101 degrees (F). 2. Pain is not relieved by prescribed pain medications. 3. Increase drainage or redness from incision. 4. Unanswered questions or concerns. FOLLOW UP VISIT: Please call [facility] at [phone] to schedule a follow up appointment with Dr. Quintero or his PA in 12-14 days from your surgery date. Pending Studies at Discharge: No Stand-Alone Forms: [facility] Not[employer], Opioid Pain Management Medications and DC Order Prescriptions: New aspirin 81 mg Tablet,Delayed Release (Dr/Ec) 81 mg PO QAM 30 Days Qty: 30 RF: 0 acetaminophen 500 mg Tablet 1,000 mg PO Q8 21 Days Qty: 126 RF: 0 oxycodone 5 mg Tablet 5 - 10 mg PO Q6H PRN (Reason: pain) Qty: 30 RF: 0 docusate sodium 100 mg Capsule 100 mg PO BID 10 Days Qty: 20 RF: 0 clindamycin HCl 300 mg capsule 300 mg PO TID 7 Days Qty: 21 RF: 0 Continued levothyroxine 50 mcg Tablet 50 mcg PO QAM RF: 0 omeprazole 20 mg Capsule,Delayed Release(Dr/Ec) 20 mg PO QAM RF: 0 escitalopram oxalate [Lexapro] 10 mg Tablet 10 mg PO QAM RF: 0 estradiol 0.5 mg Tablet 0.5 mg PO QAM RF: 0 propranolol 40 mg Tablet 40 mg PO BID RF: 0 buspirone 15 mg Tablet 15 mg PO BID RF: 0 trazodone 50 mg tablet 25 mg PO HS RF: 0 topiramate 100 mg tablet 100 mg PO BID RF: 0 Discharge Orders: Discharge Order (Routine); Ordered 04/16/20 Ordered By: Richmond Cardona/Other Patient Handouts: Shoulder Arthroscopy, The Shoulder Joint Admission Data Admit Date/Time: 04/15/20 16:00 Attending Provider: Dimas Quintero Admit Provider: Dimas Quintero Primary Care Provider: Lorenzo,Shane S. Other Interventions: Discharge Summary Assessment (RN) Last Done: 04/16/20 10:22
== END 2020-04-16 12:09 | disposition home or self-care (01) | DRG 508 ==
LOC: ASU 11:29 → 3E 16:00

== ENCOUNTER 2022-01-28 11:15 | Inpatient (IN) ==
--- NOTE | 2021-12-29 16:21 | PAT Medication Instructions ---
Medication Instructions Date of Service December 29, 2021 Home Medications buspirone 15 mg tablet 15 mg PO BID trazodone 50 mg tablet 75 mg PO HS sleep topiramate 100 mg tablet 100 mg PO BID pantoprazole 40 mg tablet,delayed release 40 mg PO BID galcanezumab-gnlm 120 mg/mL subcutaneous pen injector (Emgality Pen) 120 mg subcut Q30D divalproex 250 mg tablet,delayed release 250 mg PO BID migraines escitalopram oxalate 10 mg tablet (Lexapro) 10 mg PO QAM levothyroxine 125 mcg tablet 125 mcg PO QAM rimegepant 75 mg disintegrating tablet (Nurtec ODT) 75 mg PO UD PRN migraines ASK your prescriber and surgeon galcanezumab-gnlm 120 mg/mL subcutaneous pen injector (Emgality Pen) 120 mg subcut Q30D rimegepant 75 mg disintegrating tablet (Nurtec ODT) 75 mg PO UD PRN migraines Take morning of surgery With a small sip of water, OTHERWISE NOTHING TO EAT OR DRINK AFTER MIDNIGHT: buspirone 15 mg tablet 15 mg PO BID topiramate 100 mg tablet 100 mg PO BID pantoprazole 40 mg tablet,delayed release 40 mg PO BID divalproex 250 mg tablet,delayed release 250 mg PO BID migraines escitalopram oxalate 10 mg tablet (Lexapro) 10 mg PO QAM levothyroxine 125 mcg tablet 125 mcg PO QAM Take evening before surgery buspirone 15 mg tablet 15 mg PO BID trazodone 50 mg tablet 75 mg PO HS sleep topiramate 100 mg tablet 100 mg PO BID pantoprazole 40 mg tablet,delayed release 40 mg PO BID divalproex 250 mg tablet,delayed release 250 mg PO BID migraines Other Notes If you have any questions please call us at [phone] or [phone] or [phone] or [phone]
--- NOTE | 2022-01-04 14:39 | Anesthesiology Consultation ---
Date of Service January 04, 2022 Assessment & Plan (1) Encounter for pre-operative examination: - Awaiting surgeon-ordered PCP preop evaluation (scheduled 01/07; [facility] – [place] - Pt scheduled to see endocrine prior to surgery. Awaiting endocrine office visit note (scheduled 01/12; [facility] – [place] - COVID screening: Per assessment on 01/04: No known COVID-19 positive contacts or current COVID-19 related symptoms. Travel screen negative. Surgeon arranging preop COVID testing. Awaiting results. - S/P Left foot great toe Arthrosurface hemiarthroplasty (04/03/21): LMA#4, attempt x1, atraumatic at [facility]. No issues noted per post-op anesthesia progress note. Chart Review Chart Review: Patient seen in Pre Admission Testing Teaching & Discussion Pre-Anesthesia Teaching/Discussion Notes: Instructed NPO after midnight before surgery,except medications with 15 cc of water. Medication instructions provi ded according to the PAT guidelines. History Surgery Operation Date: 01/28/22 08:15 Proposed Procedures p Right Total Shoulder Arthroplasty Reverse Revision - Steven Godoy M.D. Height/Weight Height: 5 ft 3.5 in Weight: 66.8 kg Allergies Allergy/AdvReac Type Severity Reaction Status Date / Time Penicillins Allergy Intermediate Hives Verified 12/24/21 11:26 vancomycin Allergy Intermediate Rash Verified 12/24/21 11:26 tramadol Allergy Mild Rash Verified 12/24/21 11:26 tizanidine [From Zanaflex] AdvReac Severe Hallucinati Verified 12/24/21 11:26 ons metoclopramide [From Reglan] AdvReac Intermediate Constipatio Verified 12/24/21 11:26 n morphine AdvReac Intermediate N/V Verified 12/24/21 11:26 Medications Home Medications Medication Instructions Recorded Confirmed Last Taken buspirone 15 mg tablet 15 mg PO BID 02/05/19 12/24/21 04/03/21 05:00 trazodone 50 mg tablet 75 mg PO HS sleep 08/11/20 12/24/21 04/02/21 21:00 topiramate 100 mg tablet 100 mg PO BID 09/23/21 12/24/21 Unknown pantoprazole 40 mg tablet,delayed 40 mg PO BID 10/01/21 12/24/21 Unknown release galcanezumab-gnlm 120 mg/mL 120 mg subcut Q30D 12/10/21 12/24/21 Unknown subcutaneous pen injector (Emgality Pen) divalproex 250 mg tablet,delayed 250 mg PO BID migraines 12/24/21 12/24/21 Unknown release escitalopram oxalate 10 mg tablet 10 mg PO QAM 12/24/21 12/24/21 Unknown (Lexapro) levothyroxine 125 mcg tablet 125 mcg PO QAM 12/24/21 12/24/21 Unknown rimegepant 75 mg disintegrating 75 mg PO UD PRN migraines 12/24/21 12/24/21 Unknown tablet (Nurtec ODT) Past Medical History Medical History Abdominal pain, epigastric Chronic, no definitive etiology per PCP/GI > "no significant/severe symptoms" per recent PCP evaluation Anxiety Claustrophobia Depression DJD (degenerative joint disease) Fatty liver Fibromyalgia GERD (gastroesophageal reflux disease) Controlled Hiatal hernia HTN (hypertension) Controlled off meds per pt- BPs 100s/60s typically Hypothyroidism Kidney disease, chronic, stage III (moderate, EGFR 30-59 ml/min) Migraine Follows with [facility] (Dr. Hollingsworth) MVP (mitral valve prolapse) Reported per patient Not noted per 07/28/20 echo Ovarian cyst Left simple ovarian cyst ultrasound 03/2021 by [facility] Papillary thyroid carcinoma s/p thyroidectomy Poor intravenous access Per patient "very tiny veins, very poor access" Pt requests to have IV/team/anesthesia place IV (OR made aware) Pre-diabetes Diet controlled Exercise / Class Metabolic Activity II 4-5 Yardwork/Stairs/Walk up hill Past Family History Family History Father Diabetes Myocardial infarction ? Sister Thyroid cancer Breast cancer Mother Alzheimer disease Hypertension Other No family history of adverse response to anesthesia Denies family history of Ovarian cancer Prostate cancer Lung cancer Colorectal cancer Uterine cancer Stroke Past Surgical History Surgical History History of colonoscopy History of esophagogastroduodenoscopy (EGD) History of foot surgery R/L great toe surgeries Right foot bunionectomy and MTP arthroplasty (03/31/18): LMA#4 at [facility] Left foot great toe Arthrosurface hemiarthroplasty (04/03/21): LMA#4, attempt x1, atraumatic at [facility]. No issues noted per post-op anesthesia progress note. History of herniorrhaphy right inguinal repair History of liver biopsy History of partial hysterectomy TLH, ovaries retained History of tonsillectomy Hx of arthroscopy of shoulder right x2, left x1: resurfacing 04/15/20: Grade 1 view, MAC 3, ETT 7.0 + PNB. Hx of carpal tunnel repair R/L Hx of section X3 Hx of cholecystectomy Hx of elbow surgery R/L Hx of partial thyroidectomy "left side"/for nodules; "found cancer on rt. side 2020, ride side removed also" Hx of thumb surgery R/L "joint removed" Hx of total knee replacement R/L Status post complete thyroidectomy (~08/2020) Status post right shoulder hemiarthroplasty Past Anesthesia History No Family Hx of Anesthesia Complications and Other Post-op shaking + emotional x a few days with right foot surgery (10/2021 [facility] [place] surgery kimmell). No similar reaction with multiple other surgeries/anesthesia. Received records from procedure. Patient had right foot first metatarsal phalangeal joint fusion, hardware removal (11/16/2021) at [facility]. Per report patient was done with popliteal block and LMA. Discharge summary states "patient tolerated the procedure well and was taken to the recovery room without complication or incident." History of PONV No Hx of Motion Sickness and History of PONV (Remote (early )) Social History Smoking Status: Never smoker Do You Dip or Chew Tobacco: No Hx Alcohol Use: No Hx Substance Use: No substance use type: does not use Review of Systems Patient denies chest pain, shortness of breath, dyspnea on exertion, fever, chills, cough, wheezing, palpitations. Physical Exam Vital Signs VITALS BP 104/67 P 76 TEMP 98.5 SP02 99%RA RESP 16 PHYSICAL Full cervical extension range of motion. Full TMJ range of motion. TMD 3.5 finger breaths Mallampati Score 2 Dentition: left lower side missing Lungs: clear throughout to auscultation Cardiac: regular rate and rhythm, no murmurs noted Spine: normal Carotid arteries: negative bruit Extremities: no edema Lab Results Anesthesia Preop Results Results Anesthesia Widget: WBC 3.96 K/ul (4.8-10.8) L 01/04/22 Hgb 12.3 g/dl (12.0-16.0) 01/04/22 Hct 37.9 % (34.1-44.9) 01/04/22 Plt 231 K/uL (130-400) 01/04/22 Na 137 mmol/L (136-145) 01/04/22 K 4.0 mmol/L (3.5-5.1) 01/04/22 Cl 105 mmol/L (98-107) 01/04/22 CO2 25 mmol/L (21-32) 01/04/22 BUN 12 mg/dl (6-23) 01/04/22 Creat 1.07 mg/dl (0.6-1.2) 01/04/22 Glucose Level 97 mg/dl (70-99(Fasting)) 01/04/22 PT 10.6 Seconds (9.0-12.0) 01/04/22 PTT 26.3 Seconds (21.0-31.0) 01/04/22 INR 1.0 (0.9-1.1) 01/04/22 TSH 0.047 uIu/ml (0.300-4.500) L 12/31/21 Free T4 1.35 ng/dl (0.61-1.60) 12/31/21 HA1c 6.0 % (4.5-5.6) H 01/04/22 Urine Color Yellow 01/04/22 Urine Appearance Clear (Clear) 01/04/22 Urine pH 6.5 (4.5-7.5) 01/04/22 Urine Specific [place] 1.013 (1.000-1.030) 01/04/22 Urine Protein Negative (Negative) 01/04/22 Urine Glucose (UA) Negative (Negative) 01/04/22 Urine Ketones Negative (Negative) 01/04/22 Urine Blood Negative (Negative) 01/04/22 Urine Nitrite Negative (Negative) 01/04/22 Urine Bilirubin Negative (Negative) 01/04/22 Urine Urobilinogen Negative (Negative) 01/04/22 Urine Leukocyte Esterase Trace (Negative) H 01/04/22 Urine WBC (Auto) 5-10 /hpf (0-5) H 01/04/22 Urine RBC (Auto) 0-4 /hpf (0-4) 01/04/22 Urine Hyaline Casts (Auto) 0 /lpf (0-5) 01/04/22 Urine Epithelial Cells (Auto) 10-20 /lpf (0-5) H 01/04/22 Urine Bacteria (Auto) Negative (Negative) 01/04/22 Blood Type AB Negative 01/04/22 Antibody Screen NEGATIVE 01/04/22 Testing Electrocardiogram Date: 03/13/21 Findings: + NSR @ (61) Chest X-Ray Date: 01/04/22 FINDINGS: Lung volumes are normal. Lungs are clear. There is no pneumothorax or pleural effusion. Cardiac size is normal. Mediastinal contours are normal. There is no evidence for pulmonary edema. Right shoulder resurfacing is incidentally noted. There are cholecystectomy clips. IMPRESSION: No acute cardiopulmonary findings. Echocardiogram Date: 07/28/20 LVEF 53%. No regional motion abnormality. No significant valvular disease. The mitral valve anatomy is normal and there is no significant mitral regurgitation or stenosis. Grade 2 diastolic dysfunction. Stress Test Date: 09/12/20 Type: DSE Negative DSE/ECG for myocardial ischemia at 91% MPHR. LVEF 65%. Cervical Spine C-spine MRI (03/02/19) Severe disc disease at C4-5 and C5-6 with reversal of cervical lordosis. Minimal anterolisthesis of C3 on C4 by 2 mm. Severe left foraminal narrowing at C4-5 and C5-6. C-spine x-ray (03/16/19) FINDINGS - The cervical spine is visualized to the inferior aspect of C7 on the lateral view. There is reversal of the normal cervical lordosis. There is grade 1 retrolisthesis from C4-5 to C5-6. The vertebral body heights are maintained. There is mild loss of disc height at C3-4 and moderate to severe loss of disc height at C5-6 and C6-7 along with marginal osteophytes. IMPRESSION- Multilevel degenerative changes of the cervical spine. Seen by orthopedic surgeon 05/01/19 ([facility])- per evaluation, "X-rays of lumbar spine from today, as well as prior neck imaging, was reviewed with patient today. Findings of multilevel degeneration were discussed.. Pt educated that her numbness and tingling may be of a more intrinsic nerve issue rather than a mechanical back or structural issue as the findings on imaging do not correlate with her current symptoms. She has an appointment scheduled with Neurology in May. She was advised to keep this appointment to get an evaluation of her symptoms from them.. Dr. Lima discussed that he does not recommend surgical intervention for her neck symptoms at this time.. Return to clinic PRN."
--- NOTE | 2022-01-27 13:07 | History & Physical Report ---
Date of Service January 27, 2022 Assessment & Plan (1) Secondary osteoarthritis, right shoulder: Plan: She has persistent severe and progressively worsening right shoulder pain and weakness after previous resurfacing hemiarthroplasty. She has overall good range of motion in her shoulder, but rotator cuff is slightly weak. Her x-rays and CT scan show a slightly oversized resurfacing component, likely with some overstuffing of the joint and fairly significant glenoid wear. I would recommend conversion to a total shoulder arthroplasty to help with her pain and restore more normal function to her shoulder. However, I really cannot tell if her rotator cuff is intact or not. It feels slightly weak on exam, and I am concerned that her slightly oversized implant may have worn through the cuff over time. It was previously intact on an MRI in October 2016, but no comment on the integrity of her rotator cuff on multiple subsequent surgeries. MRI at this point would not be terribly helpful, due to metal artifact. We again discussed the differences between anatomic and reverse total shoulder arthroplasty, and that her rotator cuff must be intact for an anatomic total shoulder to function properly. I advised her that a reverse total shoulder arthroplasty would be a more reliable treatment option if there is any question as to the integrity of her rotator cuff intraoperatively, especially in a revision situation, and she voiced understanding of this. We will therefore plan for a right revision reverse total shoulder arthroplasty. Risks, benefits, and alternatives of surgery were explained in detail. The surgical procedure, as well as postoperative recovery and rehabilitation, was also explained in detail. Risks include bleeding; infection; damage to surrounding structures such as nerves, blood vessels, and tendons that run in the area; persistent pain or stiffness; hardware failure; dislocation; brachial plexus palsy; blood clots; or need for further surgery. The patient understands all of this and wishes to proceed with surgery. Informed consent was obtained. History of Present Illness Chief Complaint: Right shoulder pain and weakness Primary Care Provider: Jocelyn Julian MD Ms. Casas alphonso. Again, she is a 61-year-old [id number] female with chronic right shoulder pain and weakness. She has had multiple previous procedures on her shoulder. Previous operative reports were reviewed. She underwent a right shoulder resurfacing hemiarthroplasty on 04/15/20, followed by manipulation under anesthesia 07/23/20, arthroscopic lysis of adhesions with biceps tenotomy and repeat manipulation under anesthesia 12/11/20. She had previously had a SLAP repair in September 2017, but no comment on the integrity of the rotator cuff from that surgery. Since her right shoulder resurfacing hemiarthroplasty, she has had persistent pain and weakness. Her pain never really resolved after her surgery. She has pain with lifting even small light objects. The pain is waking her up at night. This pain is severely limiting her activities of daily living. She feels like her pain is progressively worsened over the past 2 months since I last saw her. She recently underwent foot surgery on November [address] Marquez. She is weightbearing as tolerated in a boot currently. She says that she will be in a boot until January 15. Allergies Allergy/AdvReac Type Severity Reaction Status Date / Time Penicillins Allergy Intermediate Hives Verified 01/12/22 14:52 vancomycin Allergy Intermediate Rash Verified 01/12/22 14:52 tramadol Allergy Mild Rash Verified 01/12/22 14:52 tizanidine [From Zanaflex] AdvReac Severe Hallucinati Verified 01/12/22 14:52 ons metoclopramide [From Reglan] AdvReac Intermediate Constipatio Verified 01/12/22 14:52 n morphine AdvReac Intermediate N/V Verified 01/12/22 14:52 Home Medications Medication Instructions Recorded Confirmed Type buspirone 15 mg tablet 15 mg PO BID 02/05/19 01/12/22 History trazodone 50 mg tablet 75 mg PO HS sleep 08/11/20 01/12/22 History topiramate 100 mg tablet 100 mg PO BID 09/23/21 01/12/22 History pantoprazole 40 mg tablet,delayed 40 mg PO BID 10/01/21 01/12/22 History release galcanezumab-gnlm 120 mg/mL 120 mg subcut Q30D 12/10/21 01/12/22 History subcutaneous pen injector (Emgality Pen) divalproex 250 mg tablet,delayed 250 mg PO BID migraines 12/24/21 01/12/22 History release escitalopram oxalate 10 mg tablet 10 mg PO QAM 12/24/21 01/12/22 History (Lexapro) rimegepant 75 mg disintegrating 75 mg PO UD PRN migraines 12/24/21 01/12/22 History tablet (Nurtec ODT) levothyroxine 112 mcg tablet 112 mcg PO QAM #90 tabs 01/26/22 01/26/22 Rx Past Med/Surg History Medical History (Updated 01/27/22 @ 13:07 by Steven Godoy M.D.) Abdominal pain, epigastric Chronic, no definitive etiology per PCP/GI > "no significant/severe symptoms" per recent PCP evaluation Anxiety Claustrophobia Depression DJD (degenerative joint disease) Fatty liver Fibromyalgia GERD (gastroesophageal reflux disease) Controlled Hiatal hernia HTN (hypertension) Controlled off meds per pt- BPs 100s/60s typically Hx of papillary thyroid carcinoma status post completion thyroidectomy 08/2020 Hypothyroidism, postablative Kidney disease, chronic, stage III (moderate, EGFR 30-59 ml/min) Migraine Follows with [facility] (Dr. Hollingsworth) MVP (mitral valve prolapse) Reported per patient Not noted per 07/28/20 echo Ovarian cyst Left simple ovarian cyst ultrasound 03/2021 by [facility] Poor intravenous access Per patient "very tiny veins, very poor access" Pt requests to have IV/team/anesthesia place IV (OR made aware) Pre-diabetes Diet controlled Surgical History (Updated 01/26/22 @ 08:20 by Ever Garrison MD) History of colonoscopy History of esophagogastroduodenoscopy (EGD) History of foot surgery R/L great toe surgeries Right foot bunionectomy and MTP arthroplasty (03/31/18): LMA#4 at [facility] Left foot great toe Arthrosurface hemiarthroplasty (04/03/21): LMA#4, attempt x1, atraumatic at [facility]. No issues noted per post-op anesthesia progress note. History of herniorrhaphy right inguinal repair History of liver biopsy History of partial hysterectomy TLH, ovaries retained History of tonsillectomy Hx of arthroscopy of shoulder right x2, left x1: resurfacing 04/15/20: Grade 1 view, MAC 3, ETT 7.0 + PNB. Hx of carpal tunnel repair R/L Hx of section X3 Hx of cholecystectomy Hx of elbow surgery R/L Hx of thumb surgery R/L "joint removed" Hx of total knee replacement R/L Status post complete thyroidectomy (~08/2020) Status post right shoulder hemiarthroplasty Family History Father Diabetes Myocardial infarction Sister Thyroid cancer Breast cancer Mother Alzheimer disease Hypertension Other No family history of adverse response to anesthesia Denies family history of Ovarian cancer Prostate cancer Lung cancer Colorectal cancer Uterine cancer Stroke Social History Smoking Status: Never smoker Second Hand Exposure: No; Hx Alcohol Use: No Hx Substance Use: No Preferred Language: Telugu Communication Ability: Effective Visual Impairment: No Limitations Hearing Ability: Hard of Hearing Welding 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 Rotator cuff strength is slightly weak in supraspinatus and infraspinatus. Subscapularis strength is well maintained. Results & Data ([facility]) Diagnostic Findings Previous x-rays of the right shoulder from September 2021 were reviewed. They show a resurfacing hemiarthroplasty component on the humeral head. It looks slightly oversized. It looks like there may be some mild progression of glenohumeral joint space narrowing compared to previous x-rays from May 2020. CT scan of the right shoulder from August 2021 was reviewed. It shows superior erosion of the glenoid with narrowing of the residual joint space and subchondral cyst formation. The resurfacing component seems to be sitting largely on top of the subchondral bone, rather than reamed into it. MRI of the right shoulder from October 2016 was reviewed. At that time, her rotator cuff looked intact without any significant tears.
[~2022-01-28 11:15] MED LIST changes: +BUPIVACAINE 0.5 % 5 MG/1 ML PF 10ML VIAL ONE; -DEXAMETHASONE SOD INJ 4 MG/ML VIAL ONE; -EPINEPHrine INJ 1 MG/ML AMP ONE; -METOCLOPRAMIDE HCL 10 MG TABLET PO SCH; -ROPIVACAINE 0.5% 5 MG/ML 30 ML VIAL ONE; -ROPIVACAINE 0.5% HCL/PF 150 MG, BUPIVACAINE 0.5% MPF 30 ML, EPINEPHrine 30MG/30ML (OR U... INSTIL SCH; -TRANEXAMIC ACID 1,000 MG **IV Intra-op IV SCH; -ceFAZolin 1000MG 1,000 MG/7.5 ML SYR IV SCH; +ceFAZolin 2000MG 2,000 MG/15 ML SYR IV SCH
[2022-01-28] MEDS ORDERED: Nursing to Pharmacy Communication SCH (12:00)
--- NOTE | 2022-01-28 12:04 | History & Physical Bridge Note ---
Date of Service January 28, 2022 History & Physical Bridge Note I have examined the patient, reviewed the History & Physical and in the interval since the performance of the History & Physical I have noted the following changes of clinical significance: no changes noted
[2022-01-28] MEDS ORDERED: ONDANSETRON INJ 2 MG/ML 2 ML VIAL IV PRN ×2 (12:52→18:17)
[2022-01-28] MEDS ORDERED: fentaNYL citrate 100 MCG/2 ML VIAL IV PRN (12:52)
[2022-01-28] MEDS ORDERED: ATROPINE SULFATE 0.1 MG/ML 10ML SYR IV PRN (12:52)
[2022-01-28] MEDS ORDERED: ePHEDrine sulfate 50 MG/ML AMP IV PRN (12:52)
[2022-01-28] MEDS ORDERED: MIDAZOLAM HCL 1 MG/ML 2ML VIAL ONE (13:01)
[2022-01-28] MEDS ORDERED: fentaNYL citrate 100 MCG/2 ML VIAL ONE (13:01)
[2022-01-28] MEDS ORDERED: PROPOFOL IV EMULSION 10 MG/ML 20 ML VIAL IV ONE (15:27)
[2022-01-28] MEDS ORDERED: ROCURONIUM BROMIDE 10 MG/ML 5 ML VIAL IV ONE (15:27)
[2022-01-28] MEDS ORDERED: ONDANSETRON INJ 2 MG/ML 2 ML VIAL ONE (15:27)
[2022-01-28] MEDS ORDERED: DEXAMETHASONE SOD INJ 4 MG/ML VIAL ONE (15:27)
[2022-01-28] MEDS ORDERED: LIDOCAINE 2% MPF LOCAL 5 ML VIAL INFIL ONE (15:27)
[2022-01-28] MEDS ORDERED: NEOSTIGMINE METHYLSULFATE 1 MG/ML 10ML VIAL ONE (16:31)
[2022-01-28] MEDS ORDERED: GLYCOPYRROLATE 0.2 MG/ML VIAL ONE (16:31)
--- NOTE | 2022-01-28 16:46 | Operative Report ---
Post Operative Report Pre & Post Diagnosis Operation Date: 01/28/22 13:50 Pre-Op Diagnosis: Right shoulder failed resurfacing hemiarthroplasty Post-Op Diagnosis: Right shoulder failed resurfacing hemiarthroplasty I identified the patient and participated in the time-out.: Yes Procedure Operation Date: 01/28/22 13:50 Actual Procedures Right shoulder revision of humeral resurfacing hemiarthroplasty to reverse total shoulder arthroplasty (04013) Open biceps tenodesis (29148) - Steven Godoy M.D. Surgeon Steven Godoy [employer] General Manager Jeramy Castellanos PA-C Estimated Blood Loss 75 Findings Consistent with Post-Op Diagnosis Specimens None Drains None Anesthesia Type General Regional Complications none Disposition Disposition: Recovery Room Indications Ms. Casas is a 61-year-old female who underwent a right shoulder resurfacing hemiarthroplasty in March 2020 with persistent postoperative pain and weakness. History, clinical exam, and imaging were consistent with the above diagnosis. Risks, benefits, and alternatives of surgery were explained in detail. The patient understood all this and wished to proceed. Description of Procedure Components Implanted: Tornier Reverse Total Shoulder implants Perform glenoid baseplate: 25mm, 15 degree full wedge with 6.5mm central screw and 5.0mm peripheral screws Glenosphere: 36mm standard Ascend Flex humeral stem: 4B Standard length (78mm) Humeral tray: 1.5 mm offset, +0mm thickness Polyethylene insert: 36mm, +6mm thickness Patient was identified in the preoperative holding area. Operative extremity was marked. Regional blockade was given by the Anesthesia Staff. Patient was then brought back to the operating room, and general anesthesia was induced without complication. Appropriate weight-based dose of Ancef was infused intravenously for antibiotic prophylaxis. The patient was then placed in the beachchair position. Right arm was then prepped and draped in a standard sterile fashion using Chlorhexidine prep. Previous anterior right shoulder incision was reopened. This was a little more vertical along the axilla then a standard deltopectoral incision. This was extended proximally and distally towards a more normal deltopectoral incision as necessary during the procedure for proper exposure. The cephalic vein was identified and retracted medially. Small branches to the deltoid were coagulated as necessary. The clavipectoral fascia was then incised and the subdeltoid space was opened. There was abundant scar tissue formation throughout the shoulder joint area and subdeltoid space, consistent with multiple previous surgeries. Numerous nonabsorbable sutures were identified within the subscapularis, consistent with previous repair after her resurfacing hemiarthroplasty. The subscapularis repair did appear intact. The rotator cuff did show some diffuse tendinopathy, but no full-thickness rotator cuff tears. However, due to the multiple previous surgeries and revision nature of this procedure, I decided to perform a reverse total shoulder arthroplasty as planned preoperatively for optimal outcome. The biceps tendon was identified within the bicipital groove and tenodesed at the superior border of the pectoralis tendon with #2 FiberWire suture. The biceps tendon was then divided proximal to the tenodesis site and the rotator interval was opened. The proximal portion of the biceps tendon was excised. The remaining subscapularis tendon was elevated subperiosteally off of the lesser tuberosity. The glenohumeral joint was then dislocated, exposing the previous humeral resurfacing hemiarthroplasty component. This did appear rather proud on the humerus. I used a saw just under the lip of this humeral component to loosen the implant, and I was then able to remove it without difficulty. The intramedullary canal of the humerus was then opened with a canal finder. The humeral head cut was then made in the appropriate inclination and version using the cutting guide. The humeral canal was then sequentially broached to the appropriate size. A protective cap was then placed on top of the humeral trial. I then turned my attention to the glenoid. The proximal stump of the biceps tendon was excised, along with the labrum circumferentially around the glenoid. The glenoid was found to have significant posterior and superior wear from the previous hemiarthroplasty. Due to the previous metallic implant, Blueprint planning was not possible preoperatively. Due to the posterior and superior glenoid wear, measured at approximately 10 to [address] scan, I decided to use a 15 degree wedge baseplate, with the wedge posterior- superior. The glenoid was quite small, and I selected a 25 mm baseplate as an appropriate size. The drill guide was placed on the glenoid face, and guidepin was inserted. The 15 degree angled reamer was then inserted over the guidepin and an reamed to an appropriate depth. The central screw hole was drilled, and appropriate length 6.5mm central screw was selected. The baseplate was then implanted into place by tightening down the central screw. A peripheral 5mm nonlocking screw was placed postero-superiorly first for additional compression of the baseplate, and then additional locking 5 mm peripheral screws were placed to complete fixation of the baseplate. Glenosphere was then impacted and secured. A trial humeral tray and insert were placed on the trial humeral stem, and a trial reduction was carried out. Once I achieved acceptable joint st ability and range of motion with the trial implants, the final humeral implants were assembled on the back table and then impacted into position. I then took the shoulder through full range of motion to ensure good stability and acceptable motion. Wound was then copiously irrigated with sterile saline. Deep fascia was closed with 0 V-lock suture. Subcutaneous tissue was closed with 2-0 V-lock, and skin was closed with 3-0 V-lock. Skin was then sealed with Dermabond. Sterile dressings were then applied with a waterproof silver-impregnated dressing, and the arm was placed into a sling. The patient was awakened from anesthesia and taken to the Post Anesthesia Care Unit in stable condition. There were no immediate complications from the procedure. I was present and scrubbed for the entire procedure, with the exception of final skin closure and dressing application. Due to the complex nature of the procedure, the entire surgery was performed with the operational assistance of Jeramy Castellanos PA-C. The portfolio assistant, under direct supervision, was involved in the performance of all aspects of the surgical procedure including hemostasis, tissue incision and retraction, instrument management, patient positioning, and wound closure. I attest to the content of the Intraoperative Record and any orders documented therein. Any exceptions are noted below.
--- NOTE | 2022-01-28 17:28 | Anesthesiology Progress Note ---
Date of Service January 28, 2022 Anesthesia Post Procedure Vital Signs Vital Signs: Temp Pulse Pulse Resp BP Pulse Ox O2 Del Method 01/28/22 17:20 90 15 108/60 96 Room Air 01/28/22 17:10 87 15 125/59 L 97 Oxymask 01/28/22 17:00 89 16 136/59 L 100 Oxymask 01/28/22 16:51 96.8 F L 96 H 16 129/54 L 100 Oxymask 01/28/22 11:40 97.7 F 84 18 119/66 100 Room Air O2 Flow Rate 01/28/22 17:20 01/28/22 17:10 3 01/28/22 17:00 5 01/28/22 16:51 5 01/28/22 11:40 Transfer of Care Handoff Completed per policy Notes Mental Status: alert / awake / arousable and participated in evaluation Patient Amnestic to Procedure: Yes Nausea / Vomiting: adequately controlled Pain: adequately controlled Airway Patency, RR, SpO2: stable & adequate BP & HR: stable & adequate Hydration State: stable & adequate Anesthetic Complications: no major complications apparent and Pt Satisfied with anesthetic care
--- NOTE | 2022-01-28 17:34 | XRay Report ---
XR shoulder RT min 2V routine CLINICAL HISTORY: Post shoulder surgery COMPARISON: CT of the right shoulder September 24, 2021. FINDINGS: Alignment of the reverse total right shoulder arthroplasty is anatomic. There is no peripr osthetic fracture or unexpected radiopaque foreign body. Previous distal right clavicular resection. IMPRESSION: Expected findings following total right shoulder arthroplasty. ACT 112: Negative or not required by law. Electronically signed by: Adi Momin M.D. 01/28/2022 5:32 PM
[2022-01-28] MEDS ORDERED: MAGNESIUM HYDROXIDE SUSP 30 ML UDC PO PRN (18:17)
[2022-01-28] MEDS ORDERED: bisacodyL 10 MG SUPP PR PRN (18:17)
[2022-01-28] MEDS ORDERED: NALOXONE HCL 0.4 MG/1 ML VIAL/CARP IV PRN (18:17)
[2022-01-28] MEDS ORDERED: SODIUM CHLORIDE 0.9% 1000ML 1,000 ML IV SCH (18:17)
[2022-01-28] MEDS ORDERED: NON-FORMULARY MEDICATION (Galcanezumab-Gnlm [Emgality Pen] 120 mg/mL pen injector) SQ SCH (18:17)
[2022-01-28] MEDS ORDERED: oxyCODONE HCL IR 5 MG TAB (IMMEDIATE RELEASE) PO PRN (18:17)
[2022-01-28] MEDS: PANTOprazole 40 MG TAB PO SCH (20:11)
[2022-01-28] MEDS: TOPIRAMATE 100 MG TAB PO SCH (20:14)
[2022-01-28] MEDS: DOCUSATE SODIUM 100 MG CAP PO SCH (20:14)
[2022-01-28] MEDS: ACETAMINOPHEN 500 MG TAB PO SCH (20:15)
[2022-01-28] MEDS: DIVALPROEX DELAY RELEASE 250 MG TABEC PO SCH (20:15)
[2022-01-28] MEDS: busPIRone 15 MG TAB PO SCH (20:16)
[2022-01-28] MEDS ORDERED: SENNA 8.6 MG TAB PO SCH (21:00)
[2022-01-28] MEDS ORDERED: traZODone HCL 50 MG TAB PO SCH (21:00)
[2022-01-28] MEDS: IBUPROFEN 600 MG TAB PO SCH (23:29)
[2022-01-28] MEDS: ceFAZolin 2000MG 2,000 MG/15 ML SYR IV SCH (23:29)
[2022-01-29] MEDS: ACETAMINOPHEN 500 MG TAB PO SCH ×2 (01:22→06:38)
[2022-01-29] MEDS: IBUPROFEN 600 MG TAB PO SCH ×2 (04:14→10:01)
[2022-01-29] MEDS ORDERED: LEVOTHYROXINE SODIUM 112 MCG TABLET PO SCH (06:30)
[2022-01-29] MEDS: ceFAZolin 2000MG 2,000 MG/15 ML SYR IV SCH (06:38)
[2022-01-29 07:15] LABS: Basophils # (auto) 0.01 K/uL (0-0.2); Basophils % (auto) 0.1 %; Hematocrit (blood only) 31.8 % (34.1-44.9); Hemoglobin 10.3 g/dl (12.0-16.0); Immature Granulocytes # (auto) 0.03 K/uL (0.00-0.02); Immature Granulocytes % (auto) 0.4 %; Lymphocytes # (auto) 1.13 K/uL (1.2-3.4); Lymphocytes % (auto) 16.7 %; Mean Corpuscular Hemoglobin 28.9 pg (25.0-34.0); Mean Corpuscular Hgb Conc 32.4 g/dL (32.0-36.0); Mean Corpuscular Volume 89.1 fL (80.0-100.0); Mean Platelet Volume 10.5 fL (9.4-12.3); Monocytes # (auto) 0.54 K/uL (0.24-0.82); Neutrophils # (auto) 5.04 K/uL (1.4-6.5); Neutrophils % (auto) 74.8 %; Platelet Count 204 K/uL (130-400); RDW Standard Deviation 42.4 fL (36.4-46.3); Red Blood Count 3.57 M/uL (3.93-5.22); White Blood Count 6.75 K/ul (4.8-10.8)
[2022-01-29 07:41] LABS: BUN Creatinine Ratio 9.3 (10-20); Calcium 8.5 mg/dl (8.5-10.1); Creatinine Clr Calc Pharmacy 49.6 ml/min; Est GFR (Non-African American) 55.2 ml/min; Potassium 4.1 mmol/L (3.5-5.1)
[2022-01-29] MEDS: TOPIRAMATE 100 MG TAB PO SCH (08:39)
[2022-01-29] MEDS: busPIRone 15 MG TAB PO SCH (08:39)
[2022-01-29] MEDS: DOCUSATE SODIUM 100 MG CAP PO SCH (08:39)
[2022-01-29] MEDS: DIVALPROEX DELAY RELEASE 250 MG TABEC PO SCH (08:39)
[2022-01-29] MEDS: PANTOprazole 40 MG TAB PO SCH (08:40)
[2022-01-29] MEDS ORDERED: ESCITALOPRAM OXALATE 10 MG TAB PO SCH (09:00)
[2022-01-29] MEDS ORDERED: MULTIVITAMIN TAB PO SCH (09:00)
--- NOTE | 2022-01-29 09:00 | Orthopedic Progress Note ---
Date of Service January 29, 2022 Assessment & Plan (1) Secondary osteoarthritis, right shoulder: Plan: POD 1 s/p removal hemiarthroplasty; Implant Reverse TSA right shoulder PT/OT - NWB RUE Pain management as written DVT prophylaxis - SCD's DC planning - Plan for OPPT upon dc. Plan for dc to home today. Admission and Anticipated Discharge Date Admission Date: January 28, 2022 Subjective POD 1 Pt just about to start her PT session. No complaints this morning. Comfortable. Pain controlled. Nerve block is starting to wear off. Physical Exam Physical Exam: Dressings C/D/I. Good wrist and finger ROM. Continues to have some residual tingling in fingers 1-3. Cap refill wnl. Results & Data ([facility]) Vital Signs (Past 12 Hours) Vital Signs Temp Pulse Resp BP Pulse Ox O2 Del Method 01/29/22 07:30 36.8 C 74 16 101/62 94 Room Air 01/29/22 03:52 36.6 C 72 16 108/63 96 Room Air 01/28/22 22:29 36.4 C L 79 16 101/61 94 Room Air Diagnostic Findings Laboratory Results WBC 6.75 K/ul (4.8-10.8) 01/29/22 06:45 RBC 3.57 M/uL (3.93-5.22) L 01/29/22 06:45 Hgb 10.3 g/dl (12.0-16.0) L 01/29/22 06:45 Hct 31.8 % (34.1-44.9) L 01/29/22 06:45 MCV 89.1 fL (80.0-100.0) 01/29/22 06:45 MCH 28.9 pg (25.0-34.0) 01/29/22 06:45 MCHC 32.4 g/dL (32.0-36.0) 01/29/22 06:45 RDW Std Deviation 42.4 fL (36.4-46.3) 01/29/22 06:45 RDW Coeff of Marilyn 13.0 % (11.5-14.5) 01/29/22 06:45 Plt Count 204 K/uL (130-400) 01/29/22 06:45 MPV 10.5 fL (9.4-12.3) 01/29/22 06:45 Immature Gran % (Auto) 0.4 % 01/29/22 06:45 Neut % (Auto) 74.8 % 01/29/22 06:45 Lymph % (Auto) 16.7 % 01/29/22 06:45 [place] % (Auto) 8.0 % 01/29/22 06:45 Eos % (Auto) 0.0 % 01/29/22 06:45 Baso % (Auto) 0.1 % 01/29/22 06:45 Neut # (Auto) 5.04 K/uL (1.4-6.5) 01/29/22 06:45 Lymph # (Auto) 1.13 K/uL (1.2-3.4) L 01/29/22 06:45 [place] # (Auto) 0.54 K/uL (0.24-0.82) 01/29/22 06:45 Eos # (Auto) 0.00 K/uL (0-0.50) 01/29/22 06:45 Baso # (Auto) 0.01 K/uL (0-0.2) 01/29/22 06:45 Immature Gran # (Auto) 0.03 K/uL (0.00-0.02) H 01/29/22 06:45 Sodium 137 mmol/L (136-145) 01/29/22 06:45 Potassium 4.1 mmol/L (3.5-5.1) 01/29/22 06:45 Chloride 106 mmol/L (98-107) 01/29/22 06:45 Carbon Dioxide 24 mmol/L (21-32) 01/29/22 06:45 Anion Gap 7 (3-11) 01/29/22 06:45 BUN 10 mg/dl (6-23) 01/29/22 06:45 Creatinine 1.07 mg/dl (0.6-1.2) 01/29/22 06:45 Est Cr Clr Drug Dosing 49.6 ml/min 01/29/22 06:45 Est GFR ( Amer) 64.0 ml/min 01/29/22 06:45 Est GFR (Non-Af Amer) 55.2 ml/min 01/29/22 06:45 BUN/Creatinine Ratio 9.3 (10-20) L 01/29/22 06:45 Glucose 103 mg/dl (70-99(Fasting)) H 01/29/22 06:45 Calcium 8.5 mg/dl (8.5-10.1) 01/29/22 06:45 SARS-CoV-2, RNA, NAAT NEGATIVE (NEGATIVE) 01/28/22 Unknown Impressions Shoulder X-Ray 01/28/22 17:06 XR shoulder RT min 2V routine CLINICAL HISTORY: Post shoulder surgery COMPARISON: CT of the right shoulder September 24, 2021. FINDINGS: Alignment of the reverse total right shoulder arthroplasty is anatomic. There is no periprosthetic fracture or unexpected radiopaque foreign body. Previous distal right clavicular resection. IMPRESSION: Expected findings following total right shoulder arthroplasty. ACT 112: Negative or not required by law. Electronically signed by: Adi Momin M.D. 01/28/2022 5:32 PM
--- NOTE | 2022-01-29 12:57 | Discharge Summary ---
Date of Service January 29, 2022 Admission HPI Per Admitting Provider Ms. Casas returns. Again, she is a 61-year-old afirt-pjkv-cvaitthm female with chronic right shoulder pain and weakness. She has had multiple previous procedures on her shoulder. Previous operative reports were reviewed. She underwent a right shoulder resurfacing hemiarthroplasty on 04/15/20, followed by manipulation under anesthesia 07/23/20, arthroscopic lysis of adhesions with biceps tenotomy and repeat manipulation under anesthesia 12/11/20. She had previously had a SLAP repair in September 2017, but no comment on the integrity of the rotator cuff from that surgery. Since her right shoulder resurfacing hemiarthroplasty, she has had persistent pain and weakness. Her pain never really resolved after her surgery. She has pain with lifting even small light objects. The pain is waking her up at night. This pain is severely limiting her activities of daily living. She feels like her pain is progressively worsened over the past 2 months since I last saw her. She recently underwent foot surgery on November [address] Marquez. She is weightbearing as tolerated in a boot currently. She says that she will be in a boot until January 15. Principal Diagnosis Right shoulder failed hemiarthroplasty with secondary arthritis Discharge Data Allergies Allergy/AdvReac Type Severity Reaction Status Date / Time Penicillins Allergy Intermediate Hives Verified 01/28/22 11:44 vancomycin Allergy Intermediate Rash Verified 01/28/22 11:44 tramadol Allergy Mild Rash Verified 01/28/22 11:44 tizanidine [From Zanaflex] AdvReac Severe Hallucinati Verified 01/28/22 11:44 ons metoclopramide [From Reglan] AdvReac Intermediate Constipatio Verified 01/28/22 11:44 n morphine AdvReac Intermediate N/V Verified 01/28/22 11:44 Procedures Performed Operation Date: 01/28/22 13:50 Actual Procedures p Right Total Shoulder Arthroplasty Reverse Revision(Right) - Steven Godoy M.D. Ordered Studies 01/28/22 05:00 US - OR guided needle placemen Routine Hospital Course (1) Secondary osteoarthritis, right shoulder: Patient underwent a right revision reverse total shoulder arthroplasty on the date of admission. Patient tolerated the procedure well and was transferred up to the general orthopedic surgery floor in stable condition. Perioperative antibiotic coverage was initiated, and continued for 24 hours postoperatively. DVT prophylaxis was initiated consisting of SCDs and aspirin 325 mg daily. Perioperative pain control regimen was transitioned to strictly oral pain medications by postoperative day 1. On postoperative day 1 the patient was doing very well. Pain was well controlled, and patient was mobilizing well with therapy. Patient was determined be safe and ready for discharge to home. Total Time Total Time Spent Total Time Spent (In Minutes): 15 Discharge Plan Discharge Items Patient Disposition: Home - Self-Care Reason For Visit: Right Shoulder Failed Hemiarthroplasty Discharge Diagnosis: Right shoulder failed hemiarthroplasty Activity: Per Instructions section Non-emergency contact: Surgeon Call non-emergency contact if: your pain is not controlled, your temperature is above 101.5, your wound has increased redness and your wound has increased drainage Follow-up/Referrals: Jocelyn Julian MD [Primary Care Provider] - Steven Godoy M.D. [Physician] - (Follow up in 10-14 days from the day of your surgery for your first post operative visit) Diet: Regular Addtl Attending Provider Instructions: Things to Watch Out For -Go to the Emergency Room if you have sudden onset of nausea, vomiting, chest pain, shortness of breath, or uncontrollable pain. -Call the clinic or go to the Emergency Room if you have a sudden increase in the amount of wound drainage or the drainage becomes thick, yellow or green, or foul-smelling. -For routine questions, call the clinic at [phone] during regular business hours (8am-5pm). For urgent issues after regular business hours, you may call [facility] to be connected to the on-call physician. Dressings -A special waterproof, silver-impregnated dressing was placed on your shoulder. Keep this dressing in place for 1 week after surgery. You may shower with the waterproof dressing in place, but do not soak the dressing in the bathtub or pool. -One week after surgery, you may remove the waterproof dressing. You may continue to shower, and let water run BRIEFLY over the incision, but do not soak the incision in the bathtub or pool for 2 weeks. You may also gently clean the incision with mild soap and water; pat the incision dry after cleaning-do not rub the incision. Apply a new dressing daily thereafter. Shoulder Exercises -Keep your operative shoulder in the sling for comfort, except as detailed below. -You should come out of the sling 4-5 times a day for passive pendulum exercises: lean over and swing your arm in a circular pattern. -You should also do active-assisted forward flexion exercises: use your opposite hand to lift your operative arm forward to 90 degrees. -Do not flex your elbow (curl motion) or supinate your forearm (rotating palm up) against resistance. -Do not use your arm to push yourself up out of bed or up from a seated position. Ice Pack -You may use an ice pack for pain relief. You should use it 20-30 minutes at a time. Place a towel between the ice pack and your skin to prevent frostbite. -You should use the ice pack fairly regularly for the first 1-2 weeks after surgery to help reduce pain and inflammation. -About 2 weeks after your surgery, you should start using heat to loosen up your shoulder prior to doing your stretching exercises, then use the cooling sleeve after your exercises are complete to reduce swelling and pain. Pain Medicines -Your prescriptions for pain medications have already been sent to the pharmacy on file at [facility]. -You have been prescribed an anti-inflammatory (Motrin/ibuprofen) and a non- narcotic pain medicine (Tylenol/acetaminophen). These are your primary pain medications. Take them each every 6 hours as instructed. It is recommended that you stagger these medicines every 3 hours (i.e. take ibuprofen at 8:00 am, then acetaminophen at 11:00 am, then ibuprofen at 2:00 pm, etc) -DO NOT take any additional anti-inflammatories (Advil, Aleve/naproxen, Mobic/meloxicam, Celebrex) or any additional Tylenol/acetaminophen products with these prescribed medications. -You have also been prescribed an additional narcotic pain medication (oxycodone). Take this medicine ONLY for breakthrough pain not controlled by the ibuprofen and acetaminophen. -Do not drive or operate heavy machinery while taking the narcotic medication. -Common side effects of narcotic pain medicines include itching, nausea, constipation, and feeling "loopy". However, if you develop a rash or hives, stop taking the medicine and call the clinic. If you develop swelling in your throat or difficulty breathing, go to the Emergency Room or call 911 IMMEDIATELY. -You may take over the counter stool softeners if needed for constipation. Aspirin -Take a full strength (325mg) aspirin every day for 4 weeks (28 days) to prevent blood clots. -If you were taking a baby aspirin (81mg) prior to surgery, you may resume taking this 81mg dose after you complete the 28-day course of the 325mg strength dose; do not take the 325mg dose in addition to your 81mg dose. -Be aware that you will bruise easier while taking Aspirin; this is normal. However, if you develop a significantly large area of swelling after an injury, or have a cut that will not stop bleeding, call the clinic or go to the Emergency Room immediately. Pending Studies at Discharge: No Stand-Alone Forms: My [facility] Medications and DC Order Prescriptions: Continued topiramate 100 mg tablet 100 mg PO BID Emgality Pen 120 mg/mL pen injector 120 mg subcut Q30D levothyroxine 112 mcg tablet 112 mcg PO QAM Qty: 90 2RF buspirone 15 mg Tablet 15 mg PO BID trazodone 50 mg tablet 75 mg PO HS pantoprazole 40 mg tablet,delayed release (DR/EC) 40 mg PO BID Rx Instructions: Take 1 tablet by mouth once daily divalproex 250 mg tablet,delayed release (DR/EC) 250 mg PO BID escitalopram oxalate [Lexapro] 10 mg tablet 10 mg PO QAM Nurtec ODT 75 mg tablet,disintegrating 75 mg PO UD PRN (Reason: migraines) Rx Instructions: 75 mg PO Take one tablet once a day as needed for migraine, max one dose per 24 hours, limit dosing to 2-3 times per week; Discharge Orders: Discharge Order (Routine); Ordered 01/29/22 Ordered By: Jeramy Cardona/Other Patient Handouts: Total Shoulder Replacement Surgery, Reverse Total Shoulder Replace Admission Data Admit Date/Time: 01/28/22 17:06 Attending Provider: Steven Godoy Admit Provider: Steven Godoy Primary Care Provider: Jocelyn Julian V. Other Interventions: Discharge Summary Assessment (RN) Last Done: 01/29/22 09:19
== END 2022-01-29 12:11 | disposition home or self-care (01) | DRG 483 ==
LOC: ASU 11:15 → 3W 17:06

== ENCOUNTER 2024-06-08 12:38 | Observation (INO) ==
[2024-06-08 13:12] LABS: Basophils # (auto) 0.01 K/uL (0.00-0.20); Basophils % (auto) 0.1 %; Eosinophils # (auto) 0.03 K/uL (0.00-0.50); Eosinophils % (auto) 0.4 %; Hematocrit (blood only) 34.6 % (37.0-47.0); Hemoglobin 12.3 g/dl (12.0-16.0); Immature Granulocytes # (auto) 0.03 K/uL (0.01-0.20); Immature Granulocytes % (auto) 0.4 %; Lymphocytes # (auto) 0.92 K/uL (1.20-3.40); Lymphocytes % (auto) 12.7 %; Mean Corpuscular Hemoglobin 31.7 pg (25.0-34.0); Mean Corpuscular Hgb Conc 35.5 g/dL (32.0-36.0); Mean Corpuscular Volume 89.2 fL (80.0-100.0); Mean Platelet Volume 9.8 fL (9.4-12.4); Monocytes # (auto) 0.29 K/uL (0.11-0.59); Neutrophils # (auto) 5.98 K/uL (1.40-6.50); Neutrophils % (auto) 82.4 %; Platelet Count 382 K/uL (130-400); RDW Coefficient of Variation 11.9 % (11.5-14.5); RDW Standard Deviation 37.7 fL (36.4-46.3); Red Blood Count 3.88 M/uL (4.20-5.40); White Blood Count 7.26 K/ul (4.8-10.8)
--- NOTE | 2024-06-08 13:20 | XRay Report ---
XR chest 1V portable CLINICAL HISTORY: weakness COMPARISON STUDY: 05/01/2024 FINDINGS: Stable thoracic neurostimulator. Heart size and pulmonary vasculature are normal. No effusi on, consolidation, or pneumothorax. IMPRESSION: No pneumonia seen. ACT 112: Negative or not required by law. Electronically signed by: Dariusz Mcelroy M.D. 06/08/2024 1:19 PM
[2024-06-08] MEDS: ONDANSETRON INJ 2 MG/ML 2 ML VIAL IV STA (13:23)
[2024-06-08] MEDS: SODIUM CHLORIDE 0.9% 1,000 ML IV SCH ×2 (13:23→21:47)
[2024-06-08 13:34] LABS: Alanine Aminotransferase 8 U/L (7-52); Albumin Globulin Ratio 1.9 (0.9-2); Albumin Level 5.1 gm/dl (3.4-5.0); Alkaline Phosphatase 62 U/L (34-104); Anion Gap 14 (3-11); Aspartate Aminotransferase 14 U/L (13-39); BUN Creatinine Ratio 11.5 (10-20); Bilirubin,Total 0.4 mg/dl (0.2-1.0); Blood Urea Nitrogen 14 mg/dl (6-23); Calcium 10.2 mg/dl (8.6-10.3); Carbon Dioxide 17 mmol/L (21-32); Chloride 104 mmol/L (98-107); Globulin 2.7 gm/dl (2.5-4.0); Glucose 100 mg/dl (70-99(Fasting)); Potassium 3.7 mmol/L (3.5-5.1); Sodium 135 mmol/L (136-145); Total Protein 7.8 gm/dl (6.0-8.3)
[2024-06-08 13:38] LABS: Troponin I High Sensitivity < 2.3 pg/ml (0-14)
--- NOTE | 2024-06-08 13:42 | CT Scan Report ---
CT abd pelvis wo con CLINICAL HISTORY: posterior pelvic pain TECHNIQUE: Helical axial images of the abdomen and pelvis were obtained. Automated dose lowering tech niques and/or adjustment according to patient size were utilized for this exam. This exam was perfor med without intravenous contrast. CT DOSE: 893.25 mGy.cm COMPARISON: Comparison is made to CT abdomen pelvis 09/17/2022 FINDINGS: Lower chest: No acute abnormality. Liver: Unremarkable. No focal lesions are seen. Gallbladder and biliary tree: Patient is status post cholecystectomy. No intra- or extrahepatic bilia ry ductal dilation. Pancreas: Unremarkable, no focal lesions. Spleen: Unremarkable. Adrenals: Unremarkable. 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 Bladder: Unremarkable. Reproductive organs: Patient is status post hysterectomy. Bowel: Patient is status post appendectomy. Lymph nodes Retroperitoneal: Unremarkable. Pelvic: Unremarkable. Mesenteric: Unremarkable. Peritoneum: Normal. Vessels: Atherosclerotic calcifications are seen. Abdominal wall: Periumbilical fat-containing hernia is seen. Spinal stimulator is seen with the batte ry pack in the left buttocks region. Bones: Degenerative changes in the visualized spine. Sclerotic lesion in the right iliac crest is unc hanged. IMPRESSION: 1. No acute abnormalities to explain posterior pelvic pain. 2. Postsurgical changes of cholecystectomy, hysterectomy, and appendectomy. ACT 112: Negative or not required by law. Electronically signed by: Abel Escamilla M.D. 06/08/2024 1:40 PM
[2024-06-08 13:47] LABS: Thyroid Stimulating Hormone 0.708 uIu/ml (0.300-4.500)
--- NOTE | 2024-06-08 13:54 | CT Scan Report ---
CT OF THE HEAD WITHOUT CONTRAST CLINICAL HISTORY: Dizziness. COMPARISON STUDY: Head CT April 07, 2023. MRI of the brain July 29, 2023. CT DOSE: 625.8 mGy.cm TECHNIQUE: Helical axial images of the head were obtained without IV contrast. Automated exposure con trol was utilized for the study. A dose lowering technique was utilized adhering to the principles o f ALARA. FINDINGS: No acute intracranial hemorrhage, midline shift or mass effect is present. The ventricular system is unremarkable. The basal cisterns are patent. No extra-axial collections are present. There are no findings to suggest acute dural sinus thrombosis or acute territorial infarct. No significant calvarial abnormalities are present. Visualized portions of the sinuses and mastoid air cells are danyell ar. IMPRESSION: No acute intracranial findings. ACT 112: Negative or not required by law. Electronically signed by: Adi Momin M.D. 06/08/2024 1:53 PM
[2024-06-08 15:39] LABS: Appearance Urine Clear (Clear); Bilirubin Urine Negative (Negative); Blood Urine Negative (Negative); Color Urine Yellow; Glucose Urine UA Negative (Negative); Ketones Urine Negative (Negative); Leukocyte Esterase Urine Negative (Negative); Nitrite Urine Negative (Negative); Protein Urine Negative (Negative); Specific Gravity Urine 1.007 (1.000-1.030); Urobilinogen Urine Negative (Negative)
[2024-06-08] MEDS: OPTIRAY 320 125ml IV ONE (16:14)
--- NOTE | 2024-06-08 16:38 | CT Scan Report ---
CT angiogram of the neck CT angiogram of the brain with contrast Provided History: Dizziness Comparison: None Technique: HEAD and NECK CTA: During rapid bolus intravenous injection of nonionic contrast material, axial images were obtained using thin collimation multidetector helical technique from the base of the neck through the Vertex of vertex of the head. This CT angiogram data was reconstructed at thin intervals with mild overlap. 3D reconstructions were obtained. The axial source images, multiplanar reformations, 3D reconstructions in both maximum intensity projection display and volume rendered models were reviewed. Dose reduction techniques were achieved by using automatic exposure control and/or adjustment of mA and/or kV according to patient size and/or use of iterative reconstruction technique. Findings: Head CTA demonstrates no aneurysm or stenosis of the major intracranial arteries. Neck CTA demonstrates no stenosis of the major cervical arteries. The origins of the great vessels from the aortic arch are patent. The normal distal right internal carotid artery measures 5 mm. The normal distal left internal carotid artery measures 5 mm. No mass is noted within the visualized portions of the cervical soft tissues or lung apices. Impression: 1. Head CTA demonstrates no aneurysm or stenosis of the major intracranial arteries, 2. Neck CTA demonstrates no stenosis of the major cervical arteries. The study was analyzed using artificial intelligence software for large vessel occlusion detection. Electronically signed by Lawrence Lorenzo 06-08-2024 4:37 PM
[2024-06-08 16:51] LABS: Amphetamines+Metham, Urine Neg (Neg); Barbiturates, Urine Neg (Neg); Benzodiazepine, Urine Neg (Neg); Cocaine, Urine Neg (Neg); Fentanyl, Urine Neg (Neg); MDMA (Ecstacy), Urine Neg (Neg); Marijuana, Urine Neg (Neg); Methadone, Urine Neg (Neg); Opiate, Urine Neg (Neg); Phencyclidine, Urine Neg (Neg)
[2024-06-08 17:01] LABS: Adenovirus PCR Not Detected (NotDetected); Bordetella parapertussis PCR Not Detected (NotDetected); Bordetella pertussis PCR Not Detected (NotDetected); Chlamydia pneumoniae PCR Not Detected (NotDetected); Coronavirus 229E PCR Not Detected (NotDetected); Coronavirus CoV-2 (COVID19)PCR Not Detected (NotDetected); Coronavirus HKU1 PCR Not Detected (NotDetected); Coronavirus NL63 PCR Not Detected (NotDetected); Coronavirus OC43PCR Not Detected (NotDetected); Human Metapneumovirus PCR Not Detected (NotDetected); Influenza A PCR Not Detected (NotDetected); Influenza B PCR Not Detected (NotDetected); Mycoplasma pneumoniae PCR Not Detected (NotDetected); Parainfluenza Virus 1 PCR Not Detected (NotDetected); Parainfluenza Virus 2 PCR Not Detected (NotDetected); Parainfluenza Virus 3 PCR Not Detected (NotDetected); Parainfluenza Virus 4 PCR Not Detected (NotDetected); Respiratory Syncytial VirusPCR Not Detected (NotDetected); Rhinovirus/Enterovirus PCR Not Detected (NotDetected)
--- NOTE | 2024-06-08 17:52 | Electrocardiogram Report ---
Test Reason : Blood Pressure : */* mmHG Vent. Rate : 77 BPM Atrial Rate : 77 BPM P-R Int : 116 ms QRS Dur : 76 ms QT Int : 414 ms P-R-T Axes : 42 59 51 degrees QTcB Int : 468 ms Normal sinus rhythm Normal ECG When compared with ECG of 07-Apr-2023 15:51, Nonspecific T wave abnormality no longer evident in Inferior leads Nonspecific T wave abnormality no longer evident in Anterolateral leads Confirmed by Dominick Bruno ([id number]) on 06/08/2024 5:51:28 PM Referred By: REFERRED SELF Confirmed By: Dominick Bruno
--- NOTE | 2024-06-08 17:55 | History & Physical Report ---
Date of Service June 08, 2024 Assessment & Plan (1) Idiosyncratic reaction to medication after proper dose: Plan: Probably from recent addition of oxycodone to other multiple SUBSTATION DESIGNER affecting medications. All are placed on hold. Observation with telemetry. IV fluids. Lorazepam IV as needed. Supportive care (2) Diabetes mellitus, type 2: Plan: ADA diet. Sliding scale coverage as needed (3) Hypothyroidism, postablative: Plan: Check free T3 and free T4 levels. Continue current thyroid Plan Anticipate discharge back to home within the next day or 2 History of Present Illness Chief Complaint: Restlessness, agitation, altered mental status Primary Care Provider: Madison Barry, DO 63-year-old white female who was recently started on oxycodone for pain issues. She takes multiple SUBSTATION DESIGNER affecting medications including bupropion, BuSpar, hydroxyzine, topiramate, and trazodone. She has altered mental status and has become restless and somewhat agitated since starting the oxycodone. Her is at the bedside and confirms this. It appears she is having an idiosyncratic reaction to the oxycodone. Head CT scan is negative for any acute findings. Head and neck CTA are unremarkable. Lab tests are unremarkable and urine analysis reveals no evidence of infection. Tox screen is negative. She is placed on observation for further management. All SUBSTATION DESIGNER affecting medications have been placed on hold. Allergies Allergy/AdvReac Type Severity Reaction Status Date / Time Penicillins Allergy Intermediate Hives Verified 05/02/24 10:45 vancomycin Allergy Intermediate Rash Verified 05/02/24 10:45 tramadol Allergy Mild Rash Verified 05/02/24 10:45 fluvastatin Allergy "Itchy all Verified 05/02/24 10:45 over" rosuvastatin Allergy "Itchy all Verified 05/02/24 10:45 over" tizanidine [From Zanaflex] AdvReac Severe Hallucinati Verified 05/02/24 10:45 ons metoclopramide [From Reglan] AdvReac Intermediate Constipatio Verified 05/02/24 10:45 n morphine AdvReac Intermediate N/V Verified 05/02/24 10:45 Home Medications Medication Instructions Recorded Confirmed Type trazodone 50 mg tablet 50 mg PO HS sleep 11/17/22 05/02/24 History bupropion HCl 150 mg 24 hr tablet, 150 mg PO QAM 30 days #30 tabs 11/29/22 05/02/24 Rx extended release (Wellbutrin XL) buspirone 15 mg tablet 15 mg PO BID #180 tabs 01/07/23 05/02/24 Rx gemfibrozil 600 mg tablet (Lopid) 600 mg PO BID 05/04/23 05/02/24 History cyanocobalamin (vitamin B-12) 1,000 mcg PO Q2D 08/18/23 05/02/24 History 1,000 mcg tablet (Vitamin B-12) metformin 500 mg tablet 500 mg PO BID 08/18/23 05/02/24 History oxycodone 5 mg tablet 5 mg PO Q6H Post op pain #12 tabs 10/17/23 05/02/24 Rx pantoprazole 40 mg tablet,delayed 20 mg PO QAM 10/17/23 05/02/24 History release rimegepant 75 mg disintegrating 75 mg PO QAM PRN migraines 10/17/23 05/02/24 History tablet (Nurtec ODT) levothyroxine 100 mcg tablet 100 mcg PO QAM #90 tabs 01/11/24 05/02/24 Rx midodrine 5 mg tablet 5 mg PO TID PRN 03/19/24 05/02/24 History topiramate 100 mg tablet 100 mg PO BID 90 days #180 tabs 03/19/24 05/02/24 Rx topiramate 50 mg tablet 50 mg PO HS 90 days #90 tabs 03/19/24 05/02/24 Rx hydroxyzine HCl 50 mg tablet 50 mg PO Q12H #180 tabs 05/25/24 05/25/24 Rx Past Med/Surg History Problem List (Updated 06/08/24 @ 17:54 by Royer Nelson MD) Idiosyncratic reaction to medication after proper dose Diabetes mellitus, type 2 Gastroparesis reports constant nausea Migraines Osteopenia Pseudogout of hand Interstitial cystitis Impaired fasting blood sugar Memory loss Cognitive and behavioral changes Gastroparesis Secondary osteoarthritis, right shoulder Hypothyroidism, postablative Balance problem Fatty liver Depression with anxiety (Acute) Kidney disease, chronic, stage III (moderate, EGFR 30-59 ml/min) Degenerative arthritis of right shoulder region Hyperlipidemia Medical History (Updated 06/08/24 @ 17:54 by Royer Nelson MD) History of trigger finger (09/05/23) left trigger finger release 09/05/23, [facility] Hypothyroidism Chronic idiopathic constipation Cervical stenosis of spine following with Dr Richmond Camp 08/25/23 Hx of peptic ulcer Hx of peptic ulcer [id number] Hearing loss 33% Bilateral H/A Hx of papillary thyroid carcinoma status post completion thyroidectomy 08/2020 Ovarian cyst Left simple ovarian cyst ultrasound 03/2021 by NEUROLOGY 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 Hiatal hernia Claustrophobia MVP (mitral valve prolapse) Reported per patient Not noted per 07/28/20 echo Fibromyalgia GERD (gastroesophageal reflux disease) Controlled Surgical History (Updated 05/02/24 @ 11:10 by Ever Garrison MD) Status post right shoulder hemiarthroplasty Status post reverse total shoulder replacement right shoulder S/P foot surgery, left S/P foot surgery, right multiple History of laparoscopic appendectomy (06/19/22) Laparoscopic Appendectomy, laparoscopic lysis of adhesion Status post complete thyroidectomy (~08/2020) History of foot surgery R/L great toe surgeries Right foot bunionectomy and MTP arthroplasty (03/31/18): LMA#4 at [facility] Left foot great toe Arthrosurface hemiarthroplasty (04/03/21): LMA#4, attempt x1, atraumatic at [facility]. No issues noted per post-op anesthesia progress note. History of liver biopsy History of esophagogastroduodenoscopy (EGD) Hx of cholecystectomy History of partial hysterectomy TLH, ovaries retained Hx of section X3 Hx of carpal tunnel repair R/L Hx of thumb surgery R/L "joint removed" Hx of total knee replacement R/L Hx of elbow surgery R/L Hx of arthroscopy of shoulder right x2, left x1: resurfacing 04/15/20: Grade 1 view, MAC 3, ETT 7.0 + PNB. History of herniorrhaphy right inguinal repair History of colonoscopy History of tonsillectomy Family History Father Diabetes Myocardial infarction ? Sister Thyroid cancer Breast cancer Mother Alzheimer disease Hypertension Other No family history of adverse response to anesthesia Denies family history of Ovarian cancer Prostate cancer Lung cancer Colorectal cancer Uterine cancer Stroke Social History Smoking Status: Never smoker Second Hand Exposure: No; Do You Dip or Chew Tobacco: No; Hx Alcohol Use: No Hx Substance Use: No Preferred Language: Nepali Communication Ability: Effective Visual Impairment: No Limitations Hearing Ability: Hard of Hearing Foil Cutter Required: No Beliefs That Will Affect Care: None marital status: Current Living Situation: Spouse current occupational status: disabled How many Children do You have: 3 Feels Safe at Home: Yes Childhood Exposure to Second-Hand Smoke: No Diet: regular caffeine: No Dental Care, Regularly: Yes Seatbelt Use: never Assistive Devices: Denture - Upper, Denture - Lower, Glasses and Hearing Aid - Bilateral Review of Systems 2 Review of Systems: Constitutionalno fever or chills. Agitated and restless ENTno blurred vision, no double vision, no epistaxis, no sore throat Respiratoryno cough, no wheezing, no shortness of breath Cardiacno palpitations, no chest pain, no syncope Ros nausea, vomiting, diarrhea, melena, hematochezia GUno urinary retention, no urinary incontinence, no dysuria, no hematuria Musculoskeletalno joint pain, no muscle tenderness Skinno bruising, no rashes, no pruritus Neurono isolated weakness, no paresthesia Psychagitated and restless Physical Exam 2 Physical Exam: General-alert and oriented x3, no fever, no chills HEENT-head atraumatic and normocephalic, pupils equal and reactive to light, extraocular muscles intact Neck-no lymphadenopathy or thyromegaly, trachea midline Chest-clear to auscultation. No rales, wheezing or rhonchi Cardiac-regular rate and rhythm, normal S1 and S2 Abdomen-normal bowel sounds, no hepatosplenomegaly Extremities-no cyanosis, clubbing, or edema Neuro-cranial nerves II through XII intact, motor and sensory function within normal limits, strength symmetrical, no focal deficits Psych-the patient is alert but agitated and restless. She is oriented to name and place. Results & Data Results & Data Vital Signs (Past 12 Hours) Vital Signs Temp Pulse Resp BP Pulse Ox O2 Del Method 06/08/24 17:18 92 H 06/08/24 16:30 83 18 121/78 99 Room Air 06/08/24 16:00 77 14 119/70 97 06/08/24 15:00 71 28 H 109/59 L 96 06/08/24 13:37 73 14 100 Room Air 06/08/24 13:30 73 17 126/69 99 06/08/24 13:13 73 06/08/24 12:38 36.6 C 77 14 136/88 100 Room Air Laboratory Results 06/08/24 12:53 06/08/24 12:53 Code Status & VTE Plan Code Status Full code PG Care Time/CCT Total # of Minutes Spent Total Time Spent with Patient: Total time spent is greater than 50% in coordination of care (as documented) at patient's floor/unit and/or counseling patient: Coding Level of Care Code 35201 INT INP/OBS CARE 3/75MIN Diagnoses Idiosyncratic reaction to medication after proper dose T50.905A Diabetes mellitus, type 2 E11.9 Hypothyroidism, postablative E89.0
--- NOTE | 2024-06-08 19:18 | Emergency Department Note ---
Impression & Plan AMS (altered mental status) ED Provider Note NAME: JERRICA ALLISON AGE: 63 SEX: Female INFORMANT: Patient and ED PROVIDER(S): Janes Zheng MD CHIEF COMPLAINT: Altered mental status PLAN: Disposition: Admitted none Outpatient prescription management: none Referral: None MEDICAL DECISION MAKING: Patient presented because of altered mental status and weakness. She was answering basic questions relatively appropriately although did have some repetitive questions and answers. She was not showing any signs of lateralizing findings. The patient underwent a workup. Her ECG did not show any acute ischemia or dysrhythmia nor did cardiac monitoring. Patient CBC and chemistry panel was unremarkable. Urinalysis did not reveal any acute findings and BioFire was negative. Patient's CT scan of her head was negative as well. Because of the pelvic complaints CT scan of the abdomen and pelvis was performed as well and was negative for acute process. Patient was hydrated. Patient's then presented to emergency department and noted that she seemed to have an abrupt change yesterday. Patient is not complaining of any headache. There is no fever or infectious signs. He reported no trauma. On discussion she then noted she did throw up once last night. There has not been any new medication changes other than her pain medication. Patient is not overtly sedate or lethargic to think she is had a significant adverse reaction to the hydrocodone. I discussed further evaluation and management in the hospital with the patient and . They are in agreement. The exact etiology of her change mental status is not obvious at this time. MR imaging was ordered to further evaluate the brain. Patient does have a spinal stimulator and I did discuss this with MRI. She has an MRI compatible stimulator confirmed by the failure analysis technician. The patient had a consult placed with internal medicine. I discussed the case with Dr. Jeff. He did ask for CT angiography of the head and neck to be done before the MRI and this was completed. This was negative. He also asked for an ammonia level and this was negative as well. The patient the patient is to be admitted by Dr. marrero. He did evaluate the patient in the ER. We did discuss her presentation and history. The patient was admitted for further management. Care/management discussed with: manager urology, MRI Level of care consideration(s): After review of the information above and other included data, I feel the patient requires escalation of care to admission Triage Nursing notes: reviewed and agree them. Vital Signs: reviewed and remarkable for no significant abnormalities Additional History obtained from: Patient's regarding her mental status and last 24 hours at home. Chronic Medical/Social Conditions affecting care: none Prior/ Outside/ External records reviewed: none Differential Diagnosis: Infection, hypoglycemia, electrolyte abnormalities, overdose, toxicologic, cardiac sources, intracerebral event, neurologic, trauma, as well as other pathologies. Diagnostics, independently interpreted by me: ECG: Twelve-lead ECG reveals a normal sinus rhythm at [address] elevation or depression. No PACs or PVCs. Cardiac Monitoring: Cardiac monitoring ordered by me: The patient was placed on continuous cardiac monitoring and observed. It revealed a normal sinus rhythm at 82 beats per minute without ectopy or evidence of dysrhythmia. Medical decision rules: none Imaging studies: Chest x-ray. Findings: A chest x-ray was performed and revealed no pneumothorax, effusion, infiltrate, pulmonary edema, free air under the diaphragm, or wide mediastinum. Impression: No acute disease. Head CT: A noncontrast CT scan of the head was performed and was negative for tumor, fracture, intracranial hemorrhage, or other acute pathology. CT angios of the head and neck are negative. CT scan of the abdomen pelvis reveals have no evidence of acute pathology. I refer you to the EMR for further details. HPI: 63 year old Female arrives for evaluation of generalized weakness and a change in mental status. Patient went to the [facility] family medicine clinic and they were concerned about her weakness and change in mental status. She was seemingly confused and was sent to the emergency department for further evaluation. On arrival the patient is somewhat distraught but denies any pain other than pain in her tailbone area. That is the reason she went to the clinic. She had previously been seen for that and was given hydrocodone. She did take a dose of that last night. Patient does note some dizziness. She has had occasional nausea. She has some chronic neck pain but denies any new changes. Patient denies any trauma. Pt denies LOC, headache, fevers, chills, diaphoresis, visual changes, chest pain, breathing difficulties, nausea, vomiting, abdominal pain, back pain, melena, hematochezia, urinary symptoms, numbness, weakness, lymphadenopathy, rash, or other complaints.. PAST MEDICAL HISTORY: See Below, gastroparesis diabetes, memory loss PAST SURGICAL HISTORY: See Below, SOCIAL HISTORY: See Below, HOME MEDICATIONS: See Below ALLERGIES: See Below VITALS: See Below PHYSICAL EXAMINATION: GENERAL: Awake, alert, w mildly agitated ell-appearing, in no distress HENT: Normocephalic, atraumatic. Oropharynx unremarkable. EYES: Normal conjunctiva. Sclera non-icteric. PERRLA. EOMI. NECK: Inspection normal. Non-tender. Supple. No nuchal rigidity. FROM. No masses. RESPIRATORY: Clear to auscultation. No wheezes. No rales. Normal respiratory effort. CARDIAC: Normal rate. Normal rhythm. No murmurs. No rubs. Extremities warm and well perfused. Pulses equal. No JVD. GI: Soft, non-distended. No tenderness to palpation. No rebound or guarding. No masses. RECTAL: Deferred. MUSCULOSKELETAL: Atraumatic. Chest examination reveals no tenderness. The back is symmetrical on inspection without obvious abnormality. There is no CVA tenderness to palpation. No joint edema. LOWER EXTREMITIES: Calves are equal size bilaterally and non-tender. No edema. No discoloration. NEURO: Mildly altered sensorium. Generally weak but no focal sensory or motor deficits noted. Speech is clear however occasional repetitive answering and questioning present. SKIN: No rash or jaundice noted. PROCEDURES: none CRITICAL CARE: none OBSERVATION NOTE: None Past Med/Surg History Problem List (Updated 06/08/24 @ 19:24 by Janes Zheng MD) AMS (altered mental status) (Acute) Idiosyncratic reaction to medication after proper dose Diabetes mellitus, type 2 Gastroparesis reports constant nausea Migraines Osteopenia Pseudogout of hand Interstitial cystitis Impaired fasting blood sugar Memory loss Cognitive and behavioral changes Gastroparesis Secondary osteoarthritis, right shoulder Hypothyroidism, postablative Balance problem Fatty liver Depression with anxiety (Acute) Kidney disease, chronic, stage III (moderate, EGFR 30-59 ml/min) Degenerative arthritis of right shoulder region Hyperlipidemia Medical History (Updated 06/08/24 @ 19:24 by Janes Zheng MD) History of trigger finger (09/05/23) left trigger finger release 09/05/23, [facility] Hypothyroidism Chronic idiopathic constipation Cervical stenosis of spine following with Dr Richmond Camp 08/25/23 Hx of peptic ulcer Hx of peptic ulcer [id number] Hearing loss 33% Bilateral H/A Hx of papillary thyroid carcinoma status post completion thyroidectomy 08/2020 Ovarian cyst Left simple ovarian cyst ultrasound 03/2021 by 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 PRODUCT 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 Hiatal hernia Claustrophobia MVP (mitral valve prolapse) Reported per patient Not noted per 07/28/20 echo Fibromyalgia GERD (gastroesophageal reflux disease) Controlled Surgical History (Updated 05/02/24 @ 11:10 by Ever Garrison MD) Status post right shoulder hemiarthroplasty Status post reverse total shoulder replacement right shoulder S/P foot surgery, left S/P foot surgery, right multiple History of laparoscopic appendectomy (06/19/22) Laparoscopic Appendectomy, laparoscopic lysis of adhesion Status post complete thyroidectomy (~08/2020) History of foot surgery R/L great toe surgeries Right foot bunionectomy and MTP arthroplasty (03/31/18): LMA#4 at [facility] Left foot great toe Arthrosurface hemiarthroplasty (04/03/21): LMA#4, attempt x1, atraumatic at [facility]. No issues noted per post-op anesthesia progress note. History of liver biopsy History of esophagogastroduodenoscopy (EGD) Hx of cholecystectomy History of partial hysterectomy TLH, ovaries retained Hx of section X3 Hx of carpal tunnel repair R/L Hx of thumb surgery R/L "joint removed" Hx of total knee replacement R/L Hx of elbow surgery R/L Hx of arthroscopy of shoulder right x2, left x1: resurfacing 04/15/20: Grade 1 view, MAC 3, ETT 7.0 + PNB. History of herniorrhaphy right inguinal repair History of colonoscopy History of tonsillectomy Family History Father Diabetes Myocardial infarction ? 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: No Beliefs That Will Affect Care: None marital status: Current Living Situation: Spouse current occupational status: disabled How many Children do You have: 3 Feels Safe at Home: Yes Childhood Exposure to Second-Hand Smoke: No Diet: regular caffeine: No Dental Care, Regularly: Yes Seatbelt Use: never Assistive Devices: Denture - Upper, Denture - Lower, Glasses and Hearing Aid - Bilateral Allergies Allergies Allergy/AdvReac Type Severity Reaction Status Date / Time Penicillins Allergy Intermediate Hives Verified 05/02/24 10:45 vancomycin Allergy Intermediate Rash Verified 05/02/24 10:45 tramadol Allergy Mild Rash Verified 05/02/24 10:45 fluvastatin Allergy "Itchy all Verified 05/02/24 10:45 over" rosuvastatin Allergy "Itchy all Verified 05/02/24 10:45 over" tizanidine [From Zanaflex] AdvReac Severe Hallucinati Verified 05/02/24 10:45 ons metoclopramide [From Reglan] AdvReac Intermediate Constipatio Verified 05/02/24 10:45 n morphine AdvReac Intermediate N/V Verified 05/02/24 10:45 Home Meds Home Medications Medication Instructions Recorded Confirmed trazodone 50 mg tablet 50 mg PO HS sleep 11/17/22 05/02/24 gemfibrozil 600 mg tablet (Lopid) 600 mg PO BID 05/04/23 05/02/24 cyanocobalamin (vitamin B-12) 1,000 mcg PO Q2D 08/18/23 05/02/24 1,000 mcg tablet (Vitamin B-12) metformin 500 mg tablet 500 mg PO BID 08/18/23 05/02/24 pantoprazole 40 mg tablet,delayed 20 mg PO QAM 10/17/23 05/02/24 release rimegepant 75 mg disintegrating 75 mg PO QAM PRN migraines 10/17/23 05/02/24 tablet (Nurtec ODT) midodrine 5 mg tablet 5 mg PO TID PRN 03/19/24 05/02/24 Previous Rx's Medication Instructions Recorded bupropion HCl 150 mg 24 hr tablet, 150 mg PO QAM 30 days #30 tabs 11/29/22 extended release (Wellbutrin XL) buspirone 15 mg tablet 15 mg PO BID #180 tabs 08/11/23 oxycodone 5 mg tablet 5 mg PO Q6H Post op pain #12 tabs 10/17/23 levothyroxine 100 mcg tablet 100 mcg PO QAM #90 tabs 01/11/24 topiramate 100 mg tablet 100 mg PO BID 90 days #180 tabs 03/19/24 topiramate 50 mg tablet 50 mg PO HS 90 days #90 tabs 03/19/24 hydroxyzine HCl 50 mg tablet 50 mg PO Q12H #180 tabs 05/25/24 Results & Data (ED) Vital Signs Vital Signs - 24 hr 06/08/24 12:38 06/08/24 13:13 06/08/24 13:30 Temperature 36.6 C Temperature Source Oral Pulse Rate 77 73 73 Pulse Rate from SpO2 Sensor 72 Pulse Rhythm Respiratory Rate 14 17 Respiratory Effort / Characteristics Non-Labored Respiratory Depth Normal Respiratory Pattern Regular Blood Pressure 136/88 126/69 Blood Pressure Mean 104 88 Pulse Oximetry 100 99 Oxygen Delivery Method Room Air Sepsis Recent Fever Within 48 Hours No Sepsis New/Unexplained Change in Mental Status N/A Sepsis Action Taken by Nursing No Action Required 06/08/24 13:37 06/08/24 15:00 06/08/24 16:00 Temperature Temperature Source Pulse Rate 73 71 77 Pulse Rate from SpO2 Sensor 76 Pulse Rhythm Regular Respiratory Rate 14 28 H 14 Respiratory Effort / Characteristics Respiratory Depth Respiratory Pattern Blood Pressure 109/59 L 119/70 Blood Pressure Mean 75 95 Pulse Oximetry 100 96 97 Oxygen Delivery Method Room Air Sepsis Recent Fever Within 48 Hours Sepsis New/Unexplained Change in Mental Status Sepsis Action Taken by Nursing 06/08/24 16:30 06/08/24 17:00 06/08/24 17:18 Temperature Temperature Source Pulse Rate 83 76 92 H Pulse Rate from SpO2 Sensor 75 Pulse Rhythm Respiratory Rate 18 17 Respiratory Effort / Characteristics Respiratory Depth Respiratory Pattern Blood Pressure 121/78 117/74 Blood Pressure Mean 94 88 Pulse Oximetry 99 98 Oxygen Delivery Method Room Air Sepsis Recent Fever Within 48 Hours Sepsis New/Unexplained Change in Mental Status Sepsis Action Taken by Nursing 06/08/24 18:00 06/08/24 18:30 Temperature Temperature Source Pulse Rate 74 82 Pulse Rate from SpO2 Sensor 75 79 Pulse Rhythm Respiratory Rate 18 18 Respiratory Effort / Characteristics Respiratory Depth Respiratory Pattern Blood Pressure 116/59 L 103/61 Blood Pressure Mean 75 85 Pulse Oximetry 98 96 Oxygen Delivery Method Sepsis Recent Fever Within 48 Hours Sepsis New/Unexplained Change in Mental Status Sepsis Action Taken by Nursing Laboratory Data 06/08/24 12:53 06/08/24 12:53 Lab Results 06/08/24 06/08/24 06/08/24 Range/Units 12:53 14:59 15:57 WBC 7.26 (4.8-10.8) K/ul RBC 3.88 L (4.20-5.40) M/uL Hgb 12.3 (12.0-16.0) g/dl Hct 34.6 L (37.0-47.0) % MCV 89.2 (80.0-100.0) fL MCH 31.7 (25.0-34.0) pg MCHC 35.5 (32.0-36.0) g/dL RDW Std Deviation 37.7 (36.4-46.3) fL RDW Coeff of Marilyn 11.9 (11.5-14.5) % Plt Count 382 (130-400) K/uL MPV 9.8 (9.4-12.4) fL Immature Gran % (Auto) 0.4 % Neut % (Auto) 82.4 % Lymph % (Auto) 12.7 % Dewitt % (Auto) 4.0 % Eos % (Auto) 0.4 % Baso % (Auto) 0.1 % Neut # (Auto) 5.98 (1.40-6.50) K/uL Lymph # (Auto) 0.92 L (1.20-3.40) K/uL Dewitt # (Auto) 0.29 (0.11-0.59) K/uL Eos # (Auto) 0.03 (0.00-0.50) K/uL Baso # (Auto) 0.01 (0.00-0.20) K/uL Immature Gran # (Auto) 0.03 (0.01-0.20) K/uL Sodium 135 L (136-145) mmol/L Potassium 3.7 (3.5-5.1) mmol/L Chloride 104 (98-107) mmol/L Carbon Dioxide 17 L (21-32) mmol/L Anion Gap 14 H (3-11) BUN 14 (6-23) mg/dl Creatinine 1.22 H (0.6-1.2) mg/dl Est Cr Clr Drug Dosing 38.0 ml/min eGFR 49.25 BUN/Creatinine Ratio 11.5 (10-20) Glucose 100 H (70-99(Fasting)) mg/dl Calcium 10.2 (8.6-10.3) mg/dl Magnesium 2.0 (1.7-2.4) mg/dl Total Bilirubin 0.4 (0.2-1.0) mg/dl AST 14 (13-39) U/L ALT 8 (7-52) U/L Alkaline Phosphatase 62 (34-104) U/L Ammonia (18-72) umol/L Troponin I High Sens < 2.3 (0-14) pg/ml Total Protein 7.8 (6.0-8.3) gm/dl Albumin 5.1 H (3.4-5.0) gm/dl Globulin 2.7 (2.5-4.0) gm/dl Albumin/Globulin Ratio 1.9 (0.9-2) TSH 0.708 (0.300-4.500) uIu/ml Urine Color Yellow Urine Appearance Clear (Clear) Urine pH 7.0 (4.5-7.5) Ur Specific [place] 1.007 (1.000-1.030) Urine Protein Negative (Negative) Urine Glucose (UA) Negative (Negative) Urine Ketones Negative (Negative) Urine Blood Negative (Negative) Urine Nitrite Negative (Negative) Urine Bilirubin Negative (Negative) Urine Urobilinogen Negative (Negative) Ur Leukocyte Esterase Negative (Negative) Urine Opiates Screen Neg (Neg) Ur Methadone, Qual Neg (Neg) Urine Fentanyl Screen Neg (Neg) Urine Barbiturates Neg (Neg) Ur Phencyclidine (PCP) Neg (Neg) U Amphetamin/Meth Scrn Neg (Neg) MDMA (Ecstasy) Screen Neg (Neg) U Benzodiazepines Scrn Neg (Neg) Ur Cocaine Metabolite Neg (Neg) U Marijuana (THC) Screen Neg (Neg) Ethyl Alcohol mg/dL < 10.0 (<10.0) mg/dl Adenovirus (PCR) Not Detected (NotDetected) B. pertussis DNA (PCR) Not Detected (NotDetected) B.parapertussis DNA PCR Not Detected (NotDetected) C. pneumoniae DNA (PCR) Not Detected (NotDetected) Coronavirus OC43 (PCR) Not Detected (NotDetected) Coronavirus HKU1 (PCR) Not Detected (NotDetected) Coronavirus 229E (PCR) Not Detected (NotDetected) SARS-CoV-2 (PCR) Not Detected (NotDetected) Coronavirus NL63 (PCR) Not Detected (NotDetected) Human Metapneumovir PCR Not Detected (NotDetected) Influenza Type A (PCR) Not Detected (NotDetected) Influenza Type B (PCR) Not Detected (NotDetected) M. pneumoniae (PCR) Not Detected (NotDetected) Parainfluenza 1 (PCR) Not Detected (NotDetected) Parainfluenza 2 (PCR) Not Detected (NotDetected) Parainfluenza 3 (PCR) Not Detected (NotDetected) Parainfluenza 4 (PCR) Not Detected (NotDetected) RSV (PCR) Not Detected (NotDetected) Entero/Rhino (PCR) Not Detected (NotDetected) 06/08/24 Range/Units 16:25 WBC (4.8-10.8) K/ul RBC (4.20-5.40) M/uL Hgb (12.0-16.0) g/dl Hct (37.0-47.0) % MCV (80.0-100.0) fL MCH (25.0-34.0) pg MCHC (32.0-36.0) g/dL RDW Std Deviation (36.4-46.3) fL RDW Coeff of Marilyn (11.5-14.5) % Plt Count (130-400) K/uL MPV (9.4-12.4) fL Immature Gran % (Auto) % Neut % (Auto) % Lymph % (Auto) % Dewitt % (Auto) % Eos % (Auto) % Baso % (Auto) % Neut # (Auto) (1.40-6.50) K/uL Lymph # (Auto) (1.20-3.40) K/uL Dewitt # (Auto) (0.11-0.59) K/uL Eos # (Auto) (0.00-0.50) K/uL Baso # (Auto) (0.00-0.20) K/uL Immature Gran # (Auto) (0.01-0.20) K/uL Sodium (136-145) mmol/L Potassium (3.5-5.1) mmol/L Chloride (98-107) mmol/L Carbon Dioxide (21-32) mmol/L Anion Gap (3-11) BUN (6-23) mg/dl Creatinine (0.6-1.2) mg/dl Est Cr Clr Drug Dosing ml/min eGFR BUN/Creatinine Ratio (10-20) Glucose (70-99(Fasting)) mg/dl Calcium (8.6-10.3) mg/dl Magnesium (1.7-2.4) mg/dl Total Bilirubin (0.2-1.0) mg/dl AST (13-39) U/L ALT (7-52) U/L Alkaline Phosphatase (34-104) U/L Ammonia 11.0 L (18-72) umol/L Troponin I High Sens (0-14) pg/ml Total Protein (6.0-8.3) gm/dl Albumin (3.4-5.0) gm/dl Globulin (2.5-4.0) gm/dl Albumin/Globulin Ratio (0.9-2) TSH (0.300-4.500) uIu/ml Urine Color Urine Appearance (Clear) Urine pH (4.5-7.5) Ur Specific [place] (1.000-1.030) Urine Protein (Negative) Urine Glucose (UA) (Negative) Urine Ketones (Negative) Urine Blood (Negative) Urine Nitrite (Negative) Urine Bilirubin (Negative) Urine Urobilinogen (Negative) Ur Leukocyte Esterase (Negative) Urine Opiates Screen (Neg) Ur Methadone, Qual (Neg) Urine Fentanyl Screen (Neg) Urine Barbiturates (Neg) Ur Phencyclidine (PCP) (Neg) U Amphetamin/Meth Scrn (Neg) MDMA (Ecstasy) Screen (Neg) U Benzodiazepines Scrn (Neg) Ur Cocaine Metabolite (Neg) U Marijuana (THC) Screen (Neg) Ethyl Alcohol mg/dL (<10.0) mg/dl Adenovirus (PCR) (NotDetected) B. pertussis DNA (PCR) (NotDetected) B.parapertussis DNA PCR (NotDetected) C. pneumoniae DNA (PCR) (NotDetected) Coronavirus OC43 (PCR) (NotDetected) Coronavirus HKU1 (PCR) (NotDetected) Coronavirus 229E (PCR) (NotDetected) SARS-CoV-2 (PCR) (NotDetected) Coronavirus NL63 (PCR) (NotDetected) Human Metapneumovir PCR (NotDetected) Influenza Type A (PCR) (NotDetected) Influenza Type B (PCR) (NotDetected) M. pneumoniae (PCR) (NotDetected) Parainfluenza 1 (PCR) (NotDetected) Parainfluenza 2 (PCR) (NotDetected) Parainfluenza 3 (PCR) (NotDetected) Parainfluenza 4 (PCR) (NotDetected) RSV (PCR) (NotDetected) Entero/Rhino (PCR) (NotDetected) Administered Medications Sodium Chloride (Nss) 1,000 mls @ 125 mls/hr IV .Q8H FREDDIE Stop: 06/09/24 12:59 Last Admin: 06/08/24 13:23 Dose: 125 mls/hr Documented By: TYLOR Discontinued Medications Ioversol (Optiray 320 125ml) 116 ml IV ONCE ONE Stop: 06/08/24 16:14 Last Admin: 06/08/24 16:14 Dose: 116 ml Documented By: KOURTNEY Ondansetron HCl (Ondansetron Inj 2 Mg/Ml 2 Ml Vial) 4 mg IV NOW STA Stop: 06/08/24 12:51 Last Admin: 06/08/24 13:23 Dose: 4 mg Documented By: TYLOR Imaging Data Radiologist's Impression: Chest X-Ray 06/08/24 12:39 XR chest 1V portable CLINICAL HISTORY: weakness COMPARISON STUDY: 05/01/2024 FINDINGS: Stable thoracic neurostimulator. Heart size and pulmonary vasculature are normal. No effusion, consolidation, or pneumothorax. IMPRESSION: No pneumonia seen. ACT 112: Negative or not required by law. Electronically signed by: Dariusz Mcelroy M.D. 06/08/2024 1:19 PM Abdomen/Pelvis CT 06/08/24 12:59 CT abd pelvis wo con CLINICAL HISTORY: posterior pelvic pain TECHNIQUE: Helical axial images of the abdomen and pelvis were obtained. Automated dose lowering techniques and/or adjustment according to patient size were utilized for this exam. This exam was performed without intravenous contrast. CT DOSE: 893.25 mGy.cm COMPARISON: Comparison is made to CT abdomen pelvis 09/17/2022 FINDINGS: Lower chest: No acute abnormality. Liver: Unremarkable. No focal lesions are seen. Gallbladder and biliary tree: Patient is status post cholecystectomy. No intra- or extrahepatic biliary ductal dilation. Pancreas: Unremarkable, no focal lesions. Spleen: Unremarkable. Adrenals: Unremarkable. 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 Bladder: Unremarkable. Reproductive organs: Patient is status post hysterectomy. Bowel: Patient is status post appendectomy. Lymph nodes Retroperitoneal: Unremarkable. Pelvic: Unremarkable. Mesenteric: Unremarkable. Peritoneum: Normal. Vessels: Atherosclerotic calcifications are seen. Abdominal wall: Periumbilical fat-containing hernia is seen. Spinal stimulator is seen with the battery pack in the left buttocks region. Bones: Degenerative changes in the visualized spine. Sclerotic lesion in the right iliac crest is unchanged. IMPRESSION: 1. No acute abnormalities to explain posterior pelvic pain. 2. Postsurgical changes of cholecystectomy, hysterectomy, and appendectomy. ACT 112: Negative or not required by law. Electronically signed by: Abel Escamilla M.D. 06/08/2024 1:[address] 06/08/24 12:59 CT OF THE HEAD WITHOUT CONTRAST CLINICAL HISTORY: Dizziness. COMPARISON STUDY: Head CT April 07, 2023. MRI of the brain July 29, 2023. CT DOSE: 625.8 mGy.cm TECHNIQUE: Helical axial images of the head were obtained without IV contrast. Automated exposure control was utilized for the study. A dose lowering technique was utilized adhering to the principles of ALARA. FINDINGS: No acute intracranial hemorrhage, midline shift or mass effect is present. The ventricular system is unremarkable. The basal cisterns are patent. No extra-axial collections are present. There are no findings to suggest acute dural sinus thrombosis or acute territorial infarct. No significant calvarial abnormalities are present. Visualized portions of the sinuses and mastoid air cells are clear. IMPRESSION: No acute intracranial findings. ACT 112: Negative or not required by law. Electronically signed by: Adi Momin M.D. 06/08/2024 1:53 PM Head CTA 06/08/24 15:58 CT angiogram of the neck CT angiogram of the brain with contrast Provided History: Dizziness Comparison: None Technique: HEAD and NECK CTA: During rapid bolus intravenous injection of nonionic contrast material, axial images were obtained using thin collimation multidetector helical technique from the base of the neck through the Vertex of vertex of the head. This CT angiogram data was reconstructed at thin intervals with mild overlap. 3D reconstructions were obtained. The axial source images, multiplanar reformations, 3D reconstructions in both maximum intensity projection display and volume rendered models were reviewed. Dose reduction techniques were achieved by using automatic exposure control and/or adjustment of mA and/or kV according to patient size and/or use of iterative reconstruction technique. Findings: Head CTA demonstrates no aneurysm or stenosis of the major intracranial arteries. Neck CTA demonstrates no stenosis of the major cervical arteries. The origins of the great vessels from the aortic arch are patent. The normal distal right internal carotid artery measures 5 mm. The normal distal left internal carotid artery measures 5 mm. No mass is noted within the visualized portions of the cervical soft tissues or lung apices. Impression: 1. Head CTA demonstrates no aneurysm or stenosis of the major intracranial arteries, 2. Neck CTA demonstrates no stenosis of the major cervical arteries. The study was analyzed using artificial intelligence software for large vessel occlusion detection. Electronically signed by Lawrence Lorenzo 06-08-2024 4:37 PM Neck CTA 06/08/24 15:58 CT angiogram of the neck CT angiogram of the brain with contrast Provided History: Dizziness Comparison: None Technique: HEAD and NECK CTA: During rapid bolus intravenous injection of nonionic contrast material, axial images were obtained using thin collimation multidetector helical technique from the base of the neck through the Vertex of vertex of the head. This CT angiogram data was reconstructed at thin intervals with mild overlap. 3D reconstructions were obtained. The axial source images, multiplanar reformations, 3D reconstructions in both maximum intensity projection display and volume rendered models were reviewed. Dose reduction techniques were achieved by using automatic exposure control and/or adjustment of mA and/or kV according to patient size and/or use of iterative reconstruction technique. Findings: Head CTA demonstrates no aneurysm or stenosis of the major intracranial arteries. Neck CTA demonstrates no stenosis of the major cervical arteries. The origins of the great vessels from the aortic arch are patent. The normal distal right internal carotid artery measures 5 mm. The normal distal left internal carotid artery measures 5 mm. No mass is noted within the visualized portions of the cervical soft tissues or lung apices. Impression: 1. Head CTA demonstrates no aneurysm or stenosis of the major intracranial arteries, 2. Neck CTA demonstrates no stenosis of the major cervical arteries. The study was analyzed using artificial intelligence software for large vessel occlusion detection. Electronically signed by Lawrence Lorenzo 06-08-2024 4:37 PM Discharge Plan Visit Data Chief Complaint: Weakness Stated Complaint: DIZZINESS, LEG WEAKNESS, NAUSEA ED Provider: Janes Zheng Discharge Problem: AMS (altered mental status) Forms Stand Alone Forms: [facility] [place] [employer] Prescriptions Prescriptions: No Action bupropion HCl [Wellbutrin XL] 150 mg tablet extended release 24 hr 150 mg PO QAM 30 Days Qty: 30 2RF buspirone 15 mg tablet 15 mg PO BID Qty: 180 2RF levothyroxine 100 mcg tablet 100 mcg PO QAM Qty: 90 1RF Rx Instructions: sublingually midodrine 5 mg tablet 5 mg PO TID PRN topiramate 100 mg tablet 100 mg PO BID 90 Days Qty: 180 3RF topiramate 50 mg tablet 50 mg PO HS 90 Days Qty: 90 3RF Rx Instructions: Take at bedtime along with 100 mg tab to equal 150 mg at bedtime gemfibrozil [Lopid] 600 mg tablet 600 mg PO BID hydroxyzine HCl 50 mg tablet 50 mg PO Q12H Qty: 180 3RF trazodone 50 mg tablet 50 mg PO HS metformin 500 mg Tablet 500 mg PO BID cyanocobalamin (vitamin B-12) [Vitamin B-12] 1,000 mcg Tablet 1,000 mcg PO Q2D pantoprazole 40 mg tablet,delayed release (DR/EC) 20 mg PO QAM Rx Instructions: Take 1 tablet by mouth BID Nurtec ODT 75 mg tablet,disintegrating 75 mg PO QAM PRN (Reason: migraines) Rx Instructions: 75 mg PO; every other day to prevent migraines. Do not take as needed oxycodone 5 mg tablet 5 mg PO Q6H MDD Max 6 per day Qty: 12 0RF Referrals Referrals: Madison Barry DO [Primary Care Provider] -
--- OUTSIDE RECORDS SUMMARY | 2024-06-08 20:15 | External Medical Summary | Continuity of Care Document ---
Author Name Unknown Organization [facility] [id number] [address] [place] [id number] Care Team Providers Care Business [employer] Teacher Name Role Phone Madison Barry Primary Care Physicia n [phone] Encounter [facility] [id number] Date(s): 06/04/24 - 06/04/[address] [facility] [address] [address] [place] [phone] Encounter Diagnosis Coccydynia(Discharge Diagnosis) - 06/04/24 Discharge Disposition: Home or Self Care Attending Physician: MD Ernandez Amy L Allergies, Adverse Reactions, Alerts Substance Criticality Severity Reaction Reaction Severity Status penicillin Hives Active vancomycin Rash Active traMADol Rash Active metoclopramide Constipation Ac tive morphine Sick Active Statins (HMG-CoA reductase inhibitors) pruritis Active tiZANidine Hallucinations Acti ve Immunizations Given and Recorded Vaccine Date Status Refusal Reason influenza virus vaccine, inactivated 02/27/24 Give n influenza virus vaccine, inactivated 04/06/23 Give n influenza virus vaccine, inactivated 03/18/23 Paulino rded Medications acetaminophen-hydrocodone 325 mg-5 mg oral tablet Start: 06/04/24 4:31:00 PM EST, 1 tab, PO, bid, Disp# 14 tab, Refills: 0, PRN: as needed for pain, Pharmacy: [id number] Start Date: 06/04/24 Stop Date: 06/11/24 Status: Ordered B-12 1000 mcg oral tablet Start: 07/26/23 12:53:00 PM EST, every other day Start Date: 07/26/23 Status: Ordered buPROPion 150 mg/24 hours (XL) oral tablet, extended release Start: 03/09/24 8:13:00 AM EDT, 1 tab, PO, Daily, Disp# 90 tab, Refills: 0, Pharmacy: [id number] Start Date: 03/09/24 Status: Ordered busPIRone 15 mg oral tablet Start: 03/16/24 9:07:00 AM EDT, 1 tab, PO, bid, Disp# 180 tab, Refills: 1, Pharmacy: [id number] Start Date: 03/16/24 Status: Ordered gemfibrozil 600 mg oral tablet Start: 05/17/24 2:50:00 PM EST, 1 tab, PO, bid, Disp# 180 tab, Refills: 3, Pharmacy: [id number] Start Date: 05/17/24 Status: Ordered hydrOXYzine hydrochloride 50 mg oral tablet Start: 05/01/24 9:58:00 AM EST, qhs Start Date: 05/01/24 Status: Ordered levothyroxine 100 mcg (0.1 mg) oral tablet Start: 05/01/24 9:55:00 AM EST, 1 tab, PO, Daily Start Date: 05/01/24 Status: Ordered metFORMIN 500 mg oral tablet Start: 05/17/24 2:50:00 PM EST, 1 tab, PO, bid, Disp# 180 tab, Refills: 3, Pharmacy: [id number] Start Date: 05/17/24 Status: Ordered midodrine 5 mg oral tablet Start: 05/01/24 9:58:00 AM EST, PRN before sedation Start Date: 05/01/24 Status: Ordered pantoprazole 40 mg oral delayed release tablet Start: 11/21/23 9:08:00 AM EDT, 2 tab, PO, Daily Start Date: 11/21/23 Status: Ordered topiramate 150 mg oral capsule, extended release Start: 08/25/23 2:54:00 PM EDT, 2 cap, Daily Start Date: 08/25/23 Status: Ordered traZODone 50 mg oral tablet Start: 03/21/24 1:19:00 PM EDT, 1 tab, PO, qhs, Disp# 90 tab, Refills: 1, Pharmacy: [id number] Start Date: 03/21/24 Status: Ordered Tylenol PM Start: 05/01/24 9:57:00 AM EST, 2 tab, qhs Start Date: 05/01/24 Status: Ordered Mental Status 06/04/24 Barriers to Learning one year None evide nt Mandatory Health Literacy Documentation Yes Health Literacy Communication Barriers N ever Primary Language Filipino Problem List Condition Confirmation Course Effective Dates Status H ealth Status Informant AC joint pain Confirmed Active Interstitial cystitis Confirmed Active Chronic kidney disease, stage 3 Confirmed Active Chronic pain syndrome Confirmed Active Claustrophobia Confirmed Active Diabetes mellitus Confirmed 05/01/24 Active Dizzinesses Confirmed Active Chronic GERD Confirmed Active Gastroparesis Confirmed Active Hx of colonic polyps Confirmed Active Hyperlipidemia Confirmed Active Hypothyroidism Confirmed Active Anemia, iron deficiency Confirmed Active Chronic nausea Confirmed Active DJD (degenerative joint disease) Confirmed Active Osteopenia Confirmed Active Preoperative general physical examination Confirmed Active Hypotonia Confirmed Active Postprocedural hypothyroidism 1 Confirmed 05/01/24 Active Prediabetes Confirmed Active Right anterior shoulder pain Confirmed Active S/P orthopedic surgery, follow-up exam Confirmed Active Trigger finger, left ring finger Confirmed Active Malnutrition Confirmed Active 1Added per [employer] Grinder [id number] Diagnosis Diagnosis Type Effective Dates Health Status Clini deb Service Informant Coccydynia Discharge Diagnosis 06/04/24 Non-Specified Procedures Procedure Date Related Diagnosis Body Site Status Release of trigger finger 1 10/17/23 Completed Colonoscopy 2 09/28/23 Completed EGD - esophagogastroduodenoscopy 3 09/28/23 Completed Back surgery, spinal cord stimulator 05/18/23 Completed Right foot 4 05/21/22 Completed Left foot 5 2017 Completed Right shoulder SLAP lesion 2018 Completed Tenotomy 6 2014 Completed Total knee replacement 2011 Completed Biopsy of liver Completed Cholecystectomy Completed Hysterectomy Completed Thyroidectomy Completed 1right ring and middle finger 2Repeat in 5 years. No polyps. Diverticulosis found in sigmoid colon. 3Normal esophagus. Normal stomach. Normal examined duodenum, biopsied. Two biopsies were obtained in the gastric antrum. 4surgery 5surgery 6right elbow 7right knee Vital Signs Most recent to oldest [Reference Range]: 1 Heart Rate 84 bpm (06/04/24 1:12 PM) Respiratory Rate 12 br/min (06/04/24 1:12 PM) Blood Pressure 120/78mmHg (06/04/24 1:12 PM) Social History Social History Type Response Smoking Status Never smoked cigaret norma Sex Sex Representation Female (finding) Patient Care team information Care Team Personnel Name: DO Trejo Amanda Position: Resident Member Role: Lifetime Relationship Address: [address] [address] [place] Name: DO Barry Gretchen Elizabeth Position: Physician - Family Med Member Role: Primary Care Provider Address: [address] [place] [phone] Care Team Related Persons Name: NELL ALLISON
[2024-06-08] MEDS ORDERED: GLUCAGON FOR INJ 1 MG VIAL SQ PRN (20:50)
[2024-06-08] MEDS ORDERED: DEXTROSE 50% 50 ML SYRINGE IV PRN (20:50)
[2024-06-08] MEDS ORDERED: CARBOHYDRATES FOR HYPOGLYCEMIA PO PRN (20:50)
[2024-06-08] MEDS ORDERED: GLUCOSE 10 TAB/TUBE PO PRN (20:50)
[2024-06-08] MEDS ORDERED: GLUCOSE 40% GEL 15 GM TUBE PO PRN (20:50)
[2024-06-08] MEDS: INSULIN ASPART PER UNIT CHARGE SC SCH (21:49)
[2024-06-08] MEDS: PANTOprazole 40 MG TAB PO SCH (21:49)
[2024-06-08] MEDS: traZODone HCL 50 MG TAB PO SCH ×2 (21:49→21:50)
[2024-06-08] MEDS: ACETAMINOPHEN 325 MG TAB PO PRN (21:50)
[2024-06-08] MEDS: gemfibroziL 600 MG TAB PO SCH (21:50)
[2024-06-09] MEDS: LEVOTHYROXINE SODIUM 100 MCG TABLET PO SCH (06:17)
[2024-06-09] MEDS ORDERED: LEVOTHYROXINE SODIUM 100 MCG TABLET PO SCH (06:30)
[2024-06-09] MEDS: ONDANSETRON INJ 2 MG/ML 2 ML VIAL IV PRN (12:25)
--- NOTE | 2024-06-09 15:06 | Hospitalist Progress Note ---
Date of Service June 09, 2024 Assessment & Plan (1) Idiosyncratic reaction to medication after proper dose: Plan: Probably from recent addition of oxycodone to other multiple APPLIANCE REPAIRER affecting medications. All were placed on hold on admission. She has improved. Continue observation status. IV fluids have been discontinued. Lorazepam IV as needed for anxiety. Supportive care (2) Diabetes mellitus, type 2: Plan: ADA diet. Sliding scale coverage as needed (3) Hypothyroidism, postablative: Plan: Stable. Continue current thyroid dosage Plan Hopeful discharge to home tomorrow, June 10 Admission and Anticipated Discharge Date Admission Date: June 08, 2024 Subjective The patient looks and feels better off oxycodone and other APPLIANCE REPAIRER affecting medications. is at the bedside and says she is not quite yet at her baseline. Will continue current management. IV fluids have been discontinued. Hopefully she can go home tomorrow, June 10 Review of Systems 2 Review of Systems: Constitutionalno fever or chills. ENTno blurred vision, no double vision, no epistaxis, no sore throat Respiratoryno cough, no wheezing, no shortness of breath Cardiacno palpitations, no chest pain, no syncope Ros nausea, vomiting, diarrhea, melena, hematochezia GUno urinary retention, no urinary incontinence, no dysuria, no hematuria Musculoskeletalno joint pain, no muscle tenderness Skinno bruising, no rashes, no pruritus Neurono isolated weakness, no paresthesia Psychnormal affect. Normal mood. Physical Exam 2 Physical Exam: General-alert and oriented x3, no fever, no chills HEENT-head atraumatic and normocephalic, pupils equal and reactive to light, extraocular muscles intact Neck-no lymphadenopathy or thyromegaly, trachea midline Chest-clear to auscultation. No rales, wheezing or rhonchi Cardiac-regular rate and rhythm, normal S1 and S2 Abdomen-normal bowel sounds, no hepatosplenomegaly Extremities-no cyanosis, clubbing, or edema Neuro-cranial nerves II through XII intact, motor and sensory function within normal limits, strength symmetrical, no focal deficits Psych-normal affect. Normal mood. Results & Data Results & Data Vital Signs (Past 12 Hours) Vital Signs Temp Pulse Pulse Resp BP Pulse Ox O2 Del Method 06/09/24 13:00 98 H 06/09/24 11:26 37.3 C 64 17 112/63 96 Room Air 06/09/24 07:51 36.9 C 61 18 99/55 L 97 Room Air 06/09/24 07:35 Room Air 06/09/24 03:34 36.7 C 65 18 94/55 L 96 Room Air Laboratory Results 06/08/24 12:53 06/08/24 12:53 PG Care Time/CCT Total # of Minutes Spent Total Time Spent with Patient: Total time spent is greater than 50% in coordination of care (as documented) at patient's floor/unit and/or counseling patient: Coding Level of Care Code 33311 SUB INP/OBS CARE 3/50MIN Diagnoses Idiosyncratic reaction to medication after proper dose T50.905A Diabetes mellitus, type 2 E11.9 Hypothyroidism, postablative E89.0
[2024-06-09] MEDS: LORazepam 2 MG/1 ML VIAL IV PRN (21:02)
[2024-06-10 03:44] VITALS: PULSE 70
[2024-06-10 07:55] VITALS: RESP 18
--- NOTE | 2024-06-10 11:26 | Discharge Summary ---
Discharge Summary Date of Service June 10, 2024 Principal Dx & Hospital Course #1 = Principal Diagnosis (1) Idiosyncratic reaction to medication after proper dose: Probably from recent addition of oxycodone to other multiple CHARGE ENTRY SPECIALIST affecting medications. All were placed on hold on admission. She has improved. All of her medications will be restarted at discharge but she will stay off the oxycodone. IV fluids have been discontinued. (2) Diabetes mellitus, type 2: ADA diet. Sliding scale coverage as needed (3) Hypothyroidism, postablative: Stable. Continue current thyroid dosage Plan Home today, June 10 Admission HPI Per Admitting Provider 63-year-old white female who was recently started on oxycodone for pain issues. She takes multiple CHARGE ENTRY SPECIALIST affecting medications including bupropion, BuSpar, hydroxyzine, topiramate, and trazodone. She has altered mental status and has become restless and somewhat agitated since starting the oxycodone. Her is at the bedside and confirms this. It appears she is having an idiosyncratic reaction to the oxycodone. Head CT scan is negative for any acute findings. Head and neck CTA are unremarkable. Lab tests are unremarkable and urine analysis reveals no evidence of infection. Tox screen is negative. She is placed on observation for further management. All CHARGE ENTRY SPECIALIST affecting medications have been placed on hold. Discharge Exam General-alert and oriented x3, no fever, no chills HEENT-head atraumatic and normocephalic, pupils equal and reactive to light, extraocular muscles intact Neck-no lymphadenopathy or thyromegaly, trachea midline Chest-clear to auscultation. No rales, wheezing or rhonchi Cardiac-regular rate and rhythm, normal S1 and S2 Abdomen-normal bowel sounds, no hepatosplenomegaly Extremities-no cyanosis, clubbing, or edema Neuro-cranial nerves II through XII intact, motor and sensory function within normal limits, strength symmetrical, no focal deficits Psych-normal affect. Normal mood. Discharge Plan Discharge Items Patient Disposition: Home - Self-Care Reason For Visit: OXYCODONE REACTION Discharge Diagnosis: Idiosyncratic oxycodone reaction Activity: Resume your previous activity Non-emergency contact: Primary Care Provider Call non-emergency contact if: you have any medication questions and your symptoms worsen Follow-up/Referrals: Jhonny,Madison E., DO [Primary Care Provider] - Diet: Carb Consistent or DM2 Addtl Attending Provider Instructions: Discontinue oxycodone. All other medications remain the same. Follow-up with PCP as soon as possible Pending Studies at Discharge: No Stand-Alone Forms: [facility], Smoking Cessation Medications and DC Order Prescriptions: Continued bupropion HCl [Wellbutrin XL] 150 mg tablet extended release 24 hr 150 mg PO QAM 30 Days Qty: 30 2RF buspirone 15 mg tablet 15 mg PO BID Qty: 180 2RF levothyroxine 100 mcg tablet 100 mcg PO QAM Qty: 90 1RF Rx Instructions: sublingually midodrine 5 mg tablet 5 mg PO TID PRN topiramate 100 mg tablet 100 mg PO BID 90 Days Qty: 180 3RF topiramate 50 mg tablet 50 mg PO HS 90 Days Qty: 90 3RF Rx Instructions: Take at bedtime along with 100 mg tab to equal 150 mg at bedtime gemfibrozil [Lopid] 600 mg tablet 600 mg PO BID hydroxyzine HCl 50 mg tablet 50 mg PO Q12H Qty: 180 3RF trazodone 50 mg tablet 50 mg PO HS metformin 500 mg Tablet 500 mg PO BID cyanocobalamin (vitamin B-12) [Vitamin B-12] 1,000 mcg Tablet 1,000 mcg PO Q2D pantoprazole 40 mg tablet,delayed release (DR/EC) 20 mg PO QAM Rx Instructions: Take 1 tablet by mouth BID Nurtec ODT 75 mg tablet,disintegrating 75 mg PO QAM PRN (Reason: migraines) Rx Instructions: 75 mg PO; every other day to prevent migraines. Do not take as needed Discontinued oxycodone 5 mg tablet 5 mg PO Q6H MDD Max 6 per day Qty: 12 0RF Discharge Orders: Discharge Order (Routine); Ordered 06/10/24 Ordered By: Royer Nelson Admission Data Admit Date/Time: 06/08/24 17:46 Attending Provider: Royer Nelson Admit Provider: Royer Nelson Primary Care Provider: Madison Barry Other Providers: Adrian Jeff Hospital Stay Data Consultations 06/08/24 16:57 ED Decision to Admit Stat Diagnostic Imagining Performed 06/08/24 12:59 CT Abd and Pelvis [CT abd pelvis wo con] Stat CT head/brain wo con Stat 06/08/24 15:58 CT angio head w con Stat CT angio neck with con Stat Pending Results Patient Have Any Pending Studies at Discharge: No Discharge Instructions Given to Patient (Per Discharging Provider) Discontinue oxycodone. All other medications remain the same. Follow-up with PCP as soon as possible Total Time Total Time Spent Total Time Spent (In Minutes): 45 minutes Coding Level of Care Code 99238 INP/OBS DISCH >30 MIN Diagnoses Idiosyncratic reaction to medication after proper dose T50.905A Diabetes mellitus, type 2 E11.9 Hypothyroidism, postablative E89.0
[2024-06-10 11:37] VITALS: BP 113/69; TEMP 97.9; O2SAT 97
== END 2024-06-10 13:09 | disposition home or self-care (01) ==
LOC: ED 12:38 → 2N 12:38

== ENCOUNTER 2024-09-27 16:32 | Inpatient (IN) ==
--- NOTE | 2024-09-27 16:54 | Emergency Department Note ---
Impression & Plan Chest pain, Generalized weakness ED Provider Note ED Provider Note NAME: JERRICA ALLISON AGE:64 SEX: Female : 1960 ARRIVES VIA: EMS INFORMANT: Patient ED PROVIDER(s): Tatum Ryder DO CHIEF COMPLAINT: Chest pain, arm and leg weakness HPI: This is a 64-year-old female who presents emergency department due to concern for 3 days of chest heaviness. She states she did have an episode of sharper pain today which was short-lived. She states she also developed a sense of heaviness to bilateral arms and legs. She states she feels weak all over. She denies any trauma or change in activity. No recent cough or cold symptoms, no fevers or chills. She denies any accompanying shortness of breath, nausea, or dizziness. Patient states she did recently have an outpatient stress test which was reported to her as abnormal. She states they want to do a cardiac catheterization but insurance will not approve it. Patient denies any recent change in medication. She states following the stress test she was advised to begin taking aspirin. PAST MEDICAL HISTORY:See Below PAST SURGICAL HISTORY:See Below FAMILY HISTORY:See Below SOCIAL HISTORY:See Below HOME MEDICATIONS:See Below ALLERGIES:See Below VITALS:See Below PHYSICAL EXAMINATION: GENERAL: alert, well appearing, well nourished, no distress, non-toxic EYE EXAM: normal conjunctiva, PERRL and EOM's grossly intact OROPHARYNX: no exudate, no erythema, lips, buccal mucosa, and tongue normal and mucous membranes are moist NECK: supple, no nuchal rigidity, no adenopathy, non-tender LUNGS: Clear to auscultation. Normal chest wall mechanics, no w/r/r HEART: no murmurs, S1 normal and S2 normal ABDOMEN: abdomen soft, non-tender, normo-active bowel sounds, no masses, no rebound or guarding. BACK: Back is symmetrical on inspection and there is no deformity, no midline tenderness, no CVA tenderness. SKIN: no rashes, petechiae, orbruising UPPER EXTREMITIES: upper extremities are grossly normal. FROM, nml pulses b/l. LOWER EXTREMITIES: No pitting edema. FROM, nml pulses b/l. NEURO EXAM: Normal sensorium, cranial nerves II-XII grossly intact, normal speech, no facial droop,generalized weakness bilaterally, symmetric on exam, gross sensation intact. No ataxia. Vital Signs: reviewed and remarkable Differential Diagnosis: acute coronary syndrome, pericarditis, pulmonary embolus, aortic dissection, pneumonia, pneumothorax, musculoskeletal pain, shingles, GERD, GI bleed, as well as others were considered MEDICAL DECISION MAKING: THis is a 64 yo female who presents to the ER with concern for 3 days of chest pain and weakness. Patient afebrile and VS stable. Labs drawn and sent, IV established, EKG and CXR performed and interpreted at bedside, and patient placed on telemetry. Initial labs, ekg, cxr reassuring. GIven her concerning symptoms we discussed ddx and opted to perform additional CT imaging. Patient also c/o lightheadedness to CT head added. No ectopy or dysrhythmia noted. Case discussed with [place] cardiology given recent abnormal outpatient stress echo. Agrees with plan for further inpatient evaluation as no other cause of chest pain evidence of labs/imaging in the ER. Heparin drip started. Discussed with patient who was in agreement. Case discussed with hospitalist team. Consultation(s): 2104: Discussed with Dr. Harper, cardiology. Recommends heparin drip and admission for likely cath tomorrow. 2129: Discussed with [facility] hospitalist team, for additional evaluation and management. ER Treatment Provided: See below Diagnostics Interpreted By Me: -ECG: Normal sinus at 78, normal axis, normal intervals, no acute ST/T wave changes -Cardiac Monitoring: An order was placed for continuous cardiac monitoring. The monitor shows a rate of 72 with normal sinus rhythm. -Laboratory studies: As stated above and show below. -Imaging studies: X-ray Chest: A single view study of the chest was reviewed and was negative for cardiomegaly, focal infiltrate, effusion, pulmonary edema, or wide mediastinum. Triage Nursing Note Reviewed Prior/Outside Records Reviewed - outpatient stress/echo from 2 weeks ago reviewed and was noted to be abnormal Critical care: Critical care of 42 min performed to assess and manage high likelihood of life-threatening chest pain, involving labs and imaging performed with assessment to evaluate chest pain diagnosis with frequent reassessment. This time includes bedside time, treatment discussions with patient/family/consultants, documentation time and excludes procedure time. Past Med/Surg History Problem List (Updated 09/28/24 @ 09:39 by Polly Harper DO) Anemia Renal insufficiency Hypercholesterolemia Diabetes Abnormal stress echo Unstable angina Generalized weakness (Acute) Chest pain (Acute) Overactive bladder Flank pain Abnormal urine odor AMS (altered mental status) (Acute) Idiosyncratic reaction to medication after proper dose Gastroparesis reports constant nausea Migraines Osteopenia Pseudogout of hand Interstitial cystitis Impaired fasting blood sugar Memory loss Cognitive and behavioral changes Gastroparesis Secondary osteoarthritis, right shoulder Balance problem Fatty liver Depression with anxiety (Acute) Kidney disease, chronic, stage III (moderate, EGFR 30-59 ml/min) Degenerative arthritis of right shoulder region Hyperlipidemia Medical History Diabetes mellitus, type 2 Hypothyroidism, postablative History of trigger finger (09/05/23) left trigger finger release 09/05/23, [facility] Hypothyroidism Chronic idiopathic constipation Cervical stenosis of spine following with Dr Richmond Camp 08/25/23 Hx of peptic ulcer Hx of peptic ulcer [id number] Hearing loss 33% Bilateral H/A Hx of papillary thyroid carcinoma status post completion thyroidectomy 08/2020 Ovarian cyst Left simple ovarian cyst ultrasound 03/2021 by [facility] Hiatal hernia Claustrophobia MVP (mitral valve prolapse) Reported per patient Not noted per 07/28/20 echo Fibromyalgia GERD (gastroesophageal reflux disease) Controlled Surgical History Status post right shoulder hemiarthroplasty Status post reverse total shoulder replacement right shoulder S/P foot surgery, left S/P foot surgery, right multiple History of laparoscopic appendectomy (06/19/22) Laparoscopic Appendectomy, laparoscopic lysis of adhesion Status post complete thyroidectomy (~08/2020) History of foot surgery R/L great toe surgeries Right foot bunionectomy and MTP arthroplasty (03/31/18): LMA#4 at [facility] Left foot great toe Arthrosurface hemiarthroplasty (04/03/21): LMA#4, attempt x1, atraumatic at [facility]. No issues noted per post-op anesthesia progress note. History of liver biopsy History of esophagogastroduodenoscopy (EGD) Hx of cholecystectomy History of partial hysterectomy TLH, ovaries retained Hx of section X3 Hx of carpal tunnel repair R/L Hx of thumb surgery R/L "joint removed" Hx of total knee replacement R/L Hx of elbow surgery R/L Hx of arthroscopy of shoulder right x2, left x1: resurfacing 04/15/20: Grade 1 view, MAC 3, ETT 7.0 + PNB. History of herniorrhaphy right inguinal repair History of colonoscopy History of tonsillectomy Family History Father Diabetes Myocardial infarction ? Sister Thyroid cancer Breast cancer Mother Alzheimer disease Hypertension Other No family history of adverse response to anesthesia Denies family history of Ovarian cancer Prostate cancer Lung cancer Colorectal cancer Uterine cancer Stroke Social History Smoking Status: Never smoker Second Hand Exposure: No; Do You Dip or Chew Tobacco: No; Hx Alcohol Use: No Hx Substance Use: No Preferred Language: Slovenian Communication Ability: Effective Visual Impairment: No Limitations Hearing Ability: Hard of Hearing Linoleum Tile Floor Layer Required: No Beliefs That Will Affect Care: Buddhist Buddhist Beliefs: Prodestant marital status: Current Living Situation: Spouse current occupational status: disabled How many Children do You have: 3 Feels Safe at Home: Yes Childhood Exposure to Second-Hand Smoke: No Diet: regular caffeine: No Dental Care, Regularly: Yes Seatbelt Use: never Assistive Devices: Cane and Walker Allergies Allergies Allergy/AdvReac Type Severity Reaction Status Date / Time Penicillins Allergy Intermediate Hives Verified 09/27/24 21:39 vancomycin Allergy Intermediate Rash Verified 09/27/24 21:39 tramadol Allergy Mild Rash Verified 09/27/24 21:39 acetaminophen [From [place]] Allergy Unknown Unknown Unverified 09/27/24 21:39 hydrocodone [From [place]] Allergy Unknown Unknown Unverified 09/27/24 21:39 diphenhydramine Allergy Itching Verified 09/27/24 21:39 [From Benadryl] fluvastatin Allergy "Itchy all Verified 09/27/24 21:39 over" rosuvastatin Allergy "Itchy all Verified 09/27/24 21:39 over" tizanidine [From Zanaflex] AdvReac Severe Hallucinati Verified 09/27/24 21:39 ons metoclopramide [From Reglan] AdvReac Intermediate Constipatio Verified 09/27/24 21:39 n morphine AdvReac Intermediate N/V Verified 09/27/24 21:39 Home Meds Home Medications Medication Instructions Recorded Confirmed trazodone 50 mg tablet 50 mg PO HS sleep 11/17/22 09/27/24 gemfibrozil 600 mg tablet (Lopid) 600 mg PO BID 05/04/23 09/27/24 cyanocobalamin (vitamin B-12) 1,000 mcg PO Q2D 08/18/23 09/27/24 1,000 mcg tablet (Vitamin B-12) metformin 500 mg tablet 500 mg PO BID 08/18/23 09/27/24 midodrine 5 mg tablet 5 mg PO TID PRN Prior to sedation 03/19/24 09/27/24 topiramate 50 mg tablet 50 mg PO HS 06/12/24 09/27/24 evolocumab 140 mg/mL subcutaneous 140 mg subcut .EVERY 2 WEEKS 09/27/24 09/27/24 pen injector (Barbie Chapin) folic acid 400 mcg tablet 0.4 mg PO QAM 09/27/24 09/27/24 inclisiran 284 mg/1.5 mL 0 mg subcut .EVERY 6 MONTHS 09/27/24 09/27/24 subcutaneous syringe (Leqvio) levothyroxine 88 mcg tablet 88 mcg PO DAILYBB 09/27/24 09/27/24 pantoprazole 40 mg tablet,delayed 40 mg PO QAM 09/27/24 09/27/24 release Previous Rx's Medication Instructions Recorded bupropion HCl 150 mg 24 hr tablet, 150 mg PO QAM 30 days #30 tabs 11/29/22 extended release (Wellbutrin XL) buspirone 15 mg tablet 15 mg PO BID #180 tabs 01/07/23 topiramate 100 mg tablet 100 mg PO BID 90 days #180 tabs 03/19/24 Results & Data (ED) Vital Signs Vital Signs - 24 hr 09/27/24 21:00 09/27/24 21:30 Pulse Rate 73 86 Respiratory Rate 14 20 Blood Pressure 118/77 129/88 Blood Pressure Mean 90 101 Pulse Oximetry 100 100 Laboratory Data 09/28/24 04:06 09/28/24 04:06 Lab Results 09/27/24 Range/Units 17:00 WBC 7.46 (4.8-10.8) K/ul RBC 3.54 L (4.20-5.40) M/uL Hgb 10.6 L (12.0-16.0) g/dl Hct 31.0 L (37.0-47.0) % MCV 87.6 (80.0-100.0) fL MCH 29.9 (25.0-34.0) pg MCHC 34.2 (32.0-36.0) g/dL RDW Std Deviation 39.8 (36.4-46.3) fL RDW Coeff of Marilyn 12.4 (11.5-14.5) % Plt Count 408 H (130-400) K/uL MPV 9.5 (9.4-12.4) fL Immature Gran % (Auto) 0.8 % Neut % (Auto) 44.6 % Lymph % (Auto) 36.6 % [place] % (Auto) 8.4 % Eos % (Auto) 9.1 % Baso % (Auto) 0.5 % Neut # (Auto) 3.32 (1.40-6.50) K/uL Lymph # (Auto) 2.73 (1.20-3.40) K/uL [place] # (Auto) 0.63 H (0.11-0.59) K/uL Eos # (Auto) 0.68 H (0.00-0.50) K/uL Baso # (Auto) 0.04 (0.00-0.20) K/uL Immature Gran # (Auto) 0.06 (0.01-0.20) K/uL PT 10.7 (9.0-12.0) Seconds INR 1.0 (0.9-1.1) Sodium 132 L (136-145) mmol/L Potassium 3.6 (3.5-5.1) mmol/L Chloride 103 (98-107) mmol/L Carbon Dioxide 17 L (21-32) mmol/L Anion Gap 12 H (3-11) BUN 18 (6-23) mg/dl Creatinine 1.49 H (0.6-1.2) mg/dl Est Cr Clr Drug Dosing 30.7 ml/min eGFR 38.50 BUN/Creatinine Ratio 12.1 (10-20) Glucose 83 (70-99(Fasting)) mg/dl Calcium 9.1 (8.6-10.3) mg/dl Magnesium 2.0 (1.7-2.4) mg/dl Total Bilirubin 0.3 (0.2-1.0) mg/dl AST 15 (13-39) U/L ALT 6 L (7-52) U/L Alkaline Phosphatase 57 (34-104) U/L Troponin I High Sens < 2.3 (0-14) pg/ml Total Protein 6.9 (6.0-8.3) gm/dl Albumin 4.4 (3.4-5.0) gm/dl Globulin 2.5 (2.5-4.0) gm/dl Albumin/Globulin Ratio 1.8 (0.9-2) Lipase 60 (11-82) U/L TSH 0.940 (0.300-4.500) uIu/ml Administered Medications Acetaminophen (Acetaminophen 325 Mg Tab) 650 mg PO Q4H PRN PRN Reason: Pain or Fever Stop: 10/27/24 23:01 Last Admin: 09/28/24 08:16 Dose: 650 mg Documented By: MARVA Amlodipine Besylate (Amlodipine Besylate 5 Mg Tab) 2.5 mg PO DAILY [facility] Stop: 10/28/24 17:59 Last Admin: 09/28/24 16:55 Dose: 2.5 mg Documented By: MARVA Aspirin (Aspirin 81 Mg Ectab) 81 mg PO [facility] Stop: 10/28/24 08:59 Last Admin: 09/28/24 08:16 Dose: 81 mg Documented By: MARVA Bupropion HCl (Bupropion Xl 150 Mg Tabcr) 150 mg PO [facility] Stop: 10/28/24 08:59 Last Admin: 09/28/24 08:16 Dose: 150 mg Documented By: MARVA Buspirone HCl (Buspirone 15 Mg Tab) 15 mg PO BID [facility] Stop: 10/28/24 08:59 Last Admin: 09/28/24 20:35 Dose: 15 mg Documented By: [facility] Admin: 09/28/24 08:16 Dose: 15 mg Documented By: MARVA Folic Acid (Folic Acid 400 Mcg Tab) [facility] Stop: 10/28/24 08:59 Last Admin: 09/28/24 08:16 Dose: 400 mcg Documented By: MARVA Gemfibrozil (Gemfibrozil 600 Mg Tab) 600 mg PO BID [facility] Stop: 10/28/24 08:59 Last Admin: 09/28/24 20:35 Dose: 600 mg Documented By: Admin: 09/28/24 08:17 Dose: 600 mg Documented By: MARVA Sodium Chloride (Nss) 1,000 mls @ 125 mls/hr IV .Q8H [facility] Stop: 10/01/24 09:29 Last Infusion: 09/28/24 15:30 Dose: 125 mls/hr Documented By: Infusion: 09/28/24 14:00 Dose: 0 mls/hr Documented By: Admin: 09/28/24 13:31 Dose: 125 mls/hr Documented By: MARVA Insulin Aspart (Insulin Aspart Per Unit Charge) 0 units SC ACHS [facility] Stop: 10/28/24 05:59 Last Admin: 09/28/24 16:45 Dose: Not Given Documented By: MARVA Levothyroxine Sodium (Levothyroxine Sodium 88 Mcg Tablet) 88 mcg PO DAILYBB [facility] Stop: 10/28/24 06:29 Last Admin: 09/28/24 05:44 Dose: 88 mcg Documented By: HARINDER Pantoprazole Sodium (Pantoprazole 40 Mg Tab) 40 mg PO QAM [facility] Stop: 10/28/24 08:59 Last Admin: 09/28/24 08:16 Dose: 40 mg Documented By: MARVA Topiramate (Topiramate 50 Mg Tab) 50 mg PO HS [facility] Stop: 10/28/24 20:59 Last Admin: 09/28/24 20:35 Dose: 50 mg Documented By: MELISSA Topiramate (Topiramate 100 Mg Tab) 100 mg PO BID [facility] Stop: 10/28/24 08:59 Last Admin: 09/28/24 20:35 Dose: 100 mg Documented By: Admin: 09/28/24 08:17 Dose: 100 mg Documented By: MARVA Trazodone HCl (Trazodone Hcl 50 Mg Tab) 50 mg PO HS [facility] Stop: 10/28/24 20:59 Last Admin: 09/28/24 20:55 Dose: Not Given Documented By: MELISSA Discontinued Medications Buspirone HCl (Buspirone 15 Mg Tab) 15 mg PO NOW STA Stop: 09/27/24 23:59 Last Admin: 09/28/24 00:28 Dose: 15 mg Documented By: HARINDER Fentanyl Citrate (Fentanyl Citrate Pf 100 Mcg/2 Ml Vial) Confirm Administered Dose 100 mcg .ROUTE .STK-MED ONE Stop: 09/28/24 10:11 Last Admin: 09/28/24 11:52 Dose: 100 mcg Documented By: [facility] Fentanyl Citrate (Fentanyl Citrate Pf 100 Mcg/2 Ml Vial) Confirm Administered Dose 100 mcg .ROUTE .STK-MED ONE Stop: 09/28/24 12:17 Last Increment: 09/28/24 12:21 Dose: 25 mcg Documented By: [facility] Gemfibrozil (Gemfibrozil 600 Mg Tab) 600 mg PO NOW ONE Stop: 09/27/24 23:59 Last Admin: 09/28/24 00:28 Dose: 600 mg Documented By: [facility] Heparin Sodium (Porcine) (Heparin (Porcine) 1000 Unit/Ml 10 Ml (Electromechanical Engineer Use Only)) Confirm Administered Dose 10,000 units .ROUTE .STK-MED ONE Stop: 09/28/24 10:11 Last Admin: 09/28/24 12:20 Dose: 2,500 units Documented By: [facility] Heparin Sodium/Dextrose (Heparin Iv Adult Wt-Based Low-Dose *No* Initial Bolus Protocol) 1 each IV ONE STA; Protocol Stop: 09/27/24 21:11 Last Admin: 09/27/24 22:10 Dose: Not Given Documented By: MARIA DE JESUS Heparin Sodium/Sodium Chloride (Heparin In Nss Infusion 1000 Unit/500 Ml (2 U/Ml) Bag) Confirm Administered Dose 3,000 units IV .STK-MED ONE Stop: 09/28/24 10:11 Last Admin: 09/28/24 11:51 Dose: 3,000 units Documented By: RENE Sodium Chloride (Nss) 1,000 mls @ 125 mls/hr IV .Q8H [facility] Stop: 09/30/24 16:59 Last Infusion: 09/27/24 23:19 Dose: Infused Documented By: [facility] [place] Admin: 09/27/24 18:17 Dose: 125 mls/hr Documented By: MARIA DE JESUS Heparin Sodium/Dextrose (Heparin 03222 Unit/500 Ml D5w) 25,000 units in 500 mls @ 13 mls/hr IV .Q24H FREDDIE; Protocol Stop: 10/27/24 21:29 Last Titration: 09/28/24 13:55 Dose: Infused Documented By: MARVA Co-signed By: SADE Titration: 09/28/24 10:00 Dose: 0 units/hr, 0 mls/hr Documented By: MARVA Co-signed By: SADE Titration: 09/28/24 07:06 Dose: 650 units/hr, 13 mls/hr Documented By: HARINDER Co-signed By: MARVA Titration: 09/28/24 06:50 Dose: 650 units/hr, 13 mls/hr Documented By: HARINDER Co-signed By: MARVA Titration: 09/28/24 06:02 Dose: 650 units/hr, 13 mls/hr Documented By: HARINDER Co-signed By: AYUSH Admin: 09/27/24 22:06 Dose: 650 units/hr, 13 mls/hr Documented By: MARIA DE JESUS Co-signed By: BERNARDINO Acetaminophen (Ofirmev) 1,000 mg in 100 mls @ 400 mls/hr IV NOW STA Stop: 09/27/24 22:32 Last Infusion: 09/27/24 23:49 Dose: Infused Documented By: Admin: 09/27/24 23:23 Dose: 400 mls/hr Documented By: HARINDER Insulin Aspart (Insulin Aspart Per Unit Charge) 0 units SC Q6 [facility] Stop: 10/28/24 05:59 Last Admin: 09/28/24 13:04 Dose: Not Given Documented By: Admin: 09/28/24 05:47 Dose: Not Given Documented By: HARINDER Iodixanol (Iodixanol (Visipaque) 320 Mg/Ml 100ml) Confirm Administered Dose 1 ml IV .STK-MED ONE Stop: 09/28/24 10:12 Last Admin: 09/28/24 12:20 Dose: 40 ml Documented By: NOAH Ioversol (Optiray 320 125ml) 115 ml IV ONCE ONE Stop: 09/27/24 18:01 Last Admin: 09/27/24 18:00 Dose: 115 ml Documented By: CHILANGO Ioversol (Optiray 350) Confirm Administered Dose 1 ml .ROUTE .STK-MED ONE Stop: 09/28/24 10:12 Last Admin: 09/28/24 11:50 Dose: Not Given Documented By: NOAH Lorazepam (Lorazepam 2 Mg/1 Ml Vial) 0.5 mg IV NOW STA Stop: 09/28/24 09:21 Last Admin: 09/28/24 09:50 Dose: 0.5 mg Documented By: MARVA Midazolam HCl (Midazolam Hcl 1 Mg/Ml 2ml Vial) Confirm Administered Dose 2 mg .ROUTE .[facility] Stop: 09/28/24 10:11 Last Admin: 09/28/24 11:50 Dose: 2 mg Documented By: RENE Midazolam HCl (Midazolam Hcl 1 Mg/Ml 2ml Vial) Confirm Administered Dose 2 mg .ROUTE .ST-MED ONE Stop: 09/28/24 11:52 Last Admin: 09/28/24 12:20 Dose: 2 mg Documented By: RENE Nicardipine HCl (Nicardipine 2,000 Mcg/20 Ml Syr) Confirm Administered Dose 2,000 mcg .ROUTE .[facility]-MED ONE Stop: 09/28/24 10:12 Last Admin: 09/28/24 11:50 Dose: 2,000 mcg Documented By: NOAH Nitroglycerin/Dextrose (Nitroglycerin/D5w 100mcg/Ml 20ml Syr) Confirm Administered Dose 2,000 mcg .ROUTE .[facility] ONE Stop: 09/28/24 10:12 Last Admin: 09/28/24 11:49 Dose: 2,000 mcg Documented By: NOAH Topiramate (Topiramate 100 Mg Tab) 100 mg PO NOW STA Stop: 09/27/24 23:59 Last Admin: 09/28/24 00:27 Dose: 100 mg Documented By: HARINDER Trazodone HCl (Trazodone Hcl 50 Mg Tab) 50 mg PO NOW ONE Stop: 09/27/24 23:59 Last Admin: 09/28/24 00:27 Dose: 50 mg Documented By: HARINDER Imaging Data Radiologist's Impression: Chest X-Ray 09/27/24 16:47 EXAM: XR chest 1V portable CLINICAL HISTORY: Chest pain. TECHNIQUE: An X-ray image of the chest is obtained in AP projection. COMPARISON: 05/01/2024 X-ray chest. FINDINGS: Pulmonary Parenchyma: Lungs are clear bilaterally. No evidence of consolidation, collapse, or focal opacities. No pulmonary nodules are identified. No evidence of pleural effusion or pleural thickening. Bilateral apical scarring. Heart and Mediastinum: Heart size and shape are normal. No mediastinal widening or masses. No hilar or mediastinal lymphadenopathy. Bony Thorax: right shoulder replacement, and right lateral clavicular mild bone resorption of the lateral end No fractures or deformities. Soft Tissues: Spine stimulator with the tip seen mid-thoracic level IMPRESSION: 1. No acute cardiopulmonary abnormalities are identified. 2. No interval new findings. Electronically signed by Dick Figueroa 09-27-2024 6:34 PM Abdomen/Pelvis CTA 09/27/24 17:44 EXAM: CT angio abd pelvis wo/w con CLINICAL HISTORY: Chest pain, b/l UE/LE weakness. TECHNIQUE: CTA of the abdomen and pelvis was performed with 115 ml Optiray 320 IV contrast. Coronal and sagittal reconstructive images were also obtained. One of these 3D techniques was utilized: Maximum Intensity Pixel (MIP), 3D Reconstructed Images, Volume Rendered Images, Surface Shaded Rendering. Axial non-contrast sections of the abdomen and pelvis were also obtained. One of the following dose reduction techniques was utilized for this exam.Automated exposure control, adjustment of the mA and/or kV according to patient size, and use of iterative reconstruction. COMPARISON: CT dated 09/18/2023.. FINDINGS: Aorta: The abdominal aorta is normal in caliber. No evidence of aneurysm or dissection. Scattered small vascular calcifications in the aorta and the left common iliac artery. Aortic bifurcation is unremarkable. Renal Arteries: Renal arteries are normal in size and opacification. No evidence of stenosis or occlusion. Symmetrical perfusion of both kidneys. Mesenteric Arteries: Superior mesenteric artery (SMA) and inferior mesenteric artery (RADHA) are normal in caliber and opacification. No evidence of stenosis or occlusion. Celiac Artery: The celiac artery is normal in caliber and opacification. No evidence of stenosis or occlusion. The left gastric artery arises directly from the aorta [normal variant]. Few saccular aneurysmal dilatations of the distal splenic artery with mural calcification measuring up to 1.4 cm. Iliac Arteries: Common, internal, and external iliac arteries are normal in caliber and opacification. No evidence of stenosis, aneurysm, or occlusion. Venous Structures: Inferior vena cava (IVC) and major venous structures are normal in caliber and opacification. No evidence of thrombus or obstruction. Liver: Normal size and morphology. Homogeneous enhancement post-contrast. No focal hepatic lesions. Gallbladder and Biliary System: Is surgically excised. Pancreas: Normal size and contour. Homogeneous enhancement post-contrast. No masses or cystic lesions. Spleen: Normal size and appearance. Homogeneous enhancement post-contrast. Adrenal Glands: Normal size and morphology bilaterally. No adrenal masses. Kidneys and Ureters: Normal size, shape, and position of both kidneys. Homogeneous enhancement post-contrast. No renal stones, masses, or hydronephrosis. Ureters are unremarkable. Bladder: Normal in size and wall thickness. No intraluminal masses. Normal enhancement post-contrast. Bowel: Few scattered colonic diverticulosis without evidence of diverticulitis. No evidence of obstruction, wall thickening, or abnormal dilatation. Lymph Nodes: No pathologically enlarged lymph nodes in the abdomen or pelvis. Peritoneum: No free fluid or free air in the abdomen. Bones: No lytic or sclerotic lesions. Normal alignment and bone density. Soft Tissues: Normal appearance of the visualized soft tissues. Spinal cord stimulator in the left lumbar region. IMPRESSION: 1. Mild atherosclerotic changes with no evidence of hemodynamically significant stenosis or dissection. 2. 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 Correlate with clinical findings. 3. Interval insertion of spinal cord stimulator. 4. No other appreciable changes since the last study. Electronically signed by Dick Figueroa 09-27-2024 7:38 PM Chest CTA 09/27/24 17:44 EXAM: CT angio chest dissec wo/w con CLINICAL HISTORY: cp, b/l UE/LE weakness TECHNIQUE: Contiguous 3.[address] angiographic images of the chest were acquired with the administration of intravenous contrast. Coronal and sagittal reconstructions were obtained. 115 ml optiray intravenous contrast was administered for post-contrast images. One of these 3D techniques was utilized: Maximum Intensity Pixel (MIP), 3D Reconstructed Images, Volume Rendered Images, Surface Shaded Rendering. One of the following dose reduction techniques were utilized for this exam: Automated exposure control, adjustment of the mA and/or kV according to patient size, and use of iterative reconstruction. DLP: 1610.25 COMPARISON: 05/25/2022 CT FINDINGS: Aorta: The thoracic aorta is normal in caliber. No evidence of aneurysm or dissection. Tiny scattered vascular calcification of the aorta and its branches. Pulmonary Arteries: Pulmonary arteries are normal in size and opacification. No evidence of pulmonary embolism. No stenosis or filling defects. Superior Vena Cava (SVC) and Inferior Vena Cava (IVC): Normal opacification and caliber. No evidence of thrombus or obstruction. Coronary Arteries: No significant vascular calcification. Patency cannot be accurately assessed due to cardiac motion. Mediastinum: No mediastinal mass or lymphadenopathy. Small hiatus hernia. Heart: Normal size and morphology of the heart. No pericardial effusion. Lungs: Lungs are clear with no evidence of consolidation, nodules, or masses. No pleural effusion or thickening. Bones: Right reverse shoulder replacement. Degenerative changes of the spine. Newly inserted spinal cord stimulator. Soft Tissues: Normal appearance of the visualized soft tissues. No abnormal masses or fluid collections. IMPRESSION: 1. No evidence of pulmonary embolism. 2. Mild atherosclerotic changes. 3. No significant pulmonary abnormalities. 4. Interval insertion of spinal cord stimulator. 5. Right total shoulder replacement. 6. Correlate with clinical findings. 7. No other significant interval changes. Electronically signed by Dick Figueroa 09-27-2024 7:[address] 09/27/24 17:44 EXAM: CT head/brain wo con CLINICAL HISTORY: headache, paresthesias. TECHNIQUE: Axial non-contrast CT scan of the brain was performed from the skull base to the high parietal region. One of the following dose reduction techniques were utilized for this exam: Automated exposure control, adjustment of the mA and/or kV according to patient size, use of iterative reconstruction.= COMPARISON: CTA dated 06/08/2024. FINDINGS: Brain Parenchyma: Normal attenuation of the cerebral hemispheres, cerebellum, and brainstem. No evidence of acute infarct, hemorrhage, or mass effect. No abnormal areas of hypo- or hyperattenuation. Ventricular System: Ventricles are normal in size and configuration. No evidence of hydrocephalus or ventricular enlargement. Subarachnoid Spaces: Normal sulci and cisterns. No evidence of subarachnoid hemorrhage or extra-axial fluid collections. Cerebellum and Brainstem: Normal size and signal. No masses, lesions, or areas of abnormal density. Orbits: Normal appearance of the globes, optic nerves, and extraocular muscles. No evidence of orbital masses or abnormal density. Sinuses: Clear paranasal sinuses. No evidence of sinusitis or mucosal thickening. Mastoid Air Cells: Clear mastoid air cells. No evidence of mastoiditis. Skull: Normal skull morphology. 6 x 8 mm dural-based extra-axial calcified lesion is seen in the left frontal convexity. Differential diagnosis includes incidental meningioma. IMPRESSION: 1. No evidence of acute territorial infarction or intracranial hemorrhage. 2. Suspected small incidental left frontal meningioma. 3. No newly developed lesions. 4. Correlate with clinical findings. Electronically signed by Dick Figueroa 09-27-2024 7:23 PM Discharge Plan Visit Data Chief Complaint: Chest Pain Stated Complaint: CHEST PAIN ED Provider: Tatum Ryder Discharge Problem: Chest pain, Generalized weakness Patient Disposition: Admitted As Inpatient Condition: Fair Discharge Instructions Interventions: ED Discharge Assessment Last Done: 09/27/24 22:50
[2024-09-27 17:10] LABS: Basophils # (auto) 0.04 K/uL (0.00-0.20); Basophils % (auto) 0.5 %; Eosinophils # (auto) 0.68 K/uL (0.00-0.50); Eosinophils % (auto) 9.1 %; Hemoglobin 10.6 g/dl (12.0-16.0); Immature Granulocytes # (auto) 0.06 K/uL (0.01-0.20); Immature Granulocytes % (auto) 0.8 %; Lymphocytes # (auto) 2.73 K/uL (1.20-3.40); Lymphocytes % (auto) 36.6 %; Mean Corpuscular Hemoglobin 29.9 pg (25.0-34.0); Mean Corpuscular Hgb Conc 34.2 g/dL (32.0-36.0); Mean Corpuscular Volume 87.6 fL (80.0-100.0); Mean Platelet Volume 9.5 fL (9.4-12.4); Monocytes # (auto) 0.63 K/uL (0.11-0.59); Monocytes % (auto) 8.4 %; Neutrophils # (auto) 3.32 K/uL (1.40-6.50); Neutrophils % (auto) 44.6 %; Platelet Count 408 K/uL (130-400); RDW Coefficient of Variation 12.4 % (11.5-14.5); RDW Standard Deviation 39.8 fL (36.4-46.3); Red Blood Count 3.54 M/uL (4.20-5.40); White Blood Count 7.46 K/ul (4.8-10.8)
[2024-09-27 17:26] LABS: Alanine Aminotransferase 6 U/L (7-52); Albumin Globulin Ratio 1.8 (0.9-2); Albumin Level 4.4 gm/dl (3.4-5.0); Alkaline Phosphatase 57 U/L (34-104); Anion Gap 12 (3-11); Aspartate Aminotransferase 15 U/L (13-39); BUN Creatinine Ratio 12.1 (10-20); Bilirubin,Total 0.3 mg/dl (0.2-1.0); Blood Urea Nitrogen 18 mg/dl (6-23); Calcium 9.1 mg/dl (8.6-10.3); Carbon Dioxide 17 mmol/L (21-32); Chloride 103 mmol/L (98-107); Creatinine Clr Calc Pharmacy 30.7 ml/min; Globulin 2.5 gm/dl (2.5-4.0); Glucose 83 mg/dl (70-99(Fasting)); Lipase 60 U/L (11-82); Potassium 3.6 mmol/L (3.5-5.1); Sodium 132 mmol/L (136-145); Total Protein 6.9 gm/dl (6.0-8.3)
[2024-09-27 17:35] LABS: Troponin I High Sensitivity < 2.3 pg/ml (0-14)
[2024-09-27 17:45] LABS: Prothrombin Time 10.7 Seconds (9.0-12.0)
[2024-09-27] MEDS: OPTIRAY 320 125ml IV ONE (18:00)
[2024-09-27] MEDS: SODIUM CHLORIDE 0.9% 1,000 ML IV SCH (18:17)
--- NOTE | 2024-09-27 18:34 | XRay Report ---
EXAM: XR chest 1V portable CLINICAL HISTORY: Chest pain. TECHNIQUE: An X-ray image of the chest is obtained in AP projection. COMPARISON: 05/01/2024 X-ray chest. FINDINGS: Pulmonary Parenchyma: Lungs are clear bilaterally. No evidence of consolidation, collapse, or focal opacities. No pulmonary nodules are identified. No evidence of pleural effusion or pleural thickening. Bilateral apical scarring. Heart and Mediastinum: Heart size and shape are normal. No mediastinal widening or masses. No hilar or mediastinal lymphadenopathy. Bony Thorax: right shoulder replacement, and right lateral clavicular mild bone resorption of the lateral end No fractures or deformities. Soft Tissues: Spine stimulator with the tip seen mid-thoracic level IMPRESSION: 1. No acute cardiopulmonary abnormalities are identified. 2. No interval new findings. Electronically signed by Dick Figueroa 09-27-2024 6:34 PM
--- NOTE | 2024-09-27 19:23 | CT Scan Report ---
EXAM: CT head/brain wo con CLINICAL HISTORY: headache, paresthesias. TECHNIQUE: Axial non-contrast CT scan of the brain was performed from the skull base to the high parietal region. One of the following dose reduction techniques were utilized for this exam: Automated exposure control, adjustment of the mA and/or kV according to patient size, use of iterative reconstruction.= COMPARISON: CTA dated 06/08/2024. FINDINGS: Brain Parenchyma: Normal attenuation of the cerebral hemispheres, cerebellum, and brainstem. No evidence of acute infarct, hemorrhage, or mass effect. No abnormal areas of hypo- or hyperattenuation. Ventricular System: Ventricles are normal in size and configuration. No evidence of hydrocephalus or ventricular enlargement. Subarachnoid Spaces: Normal sulci and cisterns. No evidence of subarachnoid hemorrhage or extra-axial fluid collections. Cerebellum and Brainstem: Normal size and signal. No masses, lesions, or areas of abnormal density. Orbits: Normal appearance of the globes, optic nerves, and extraocular muscles. No evidence of orbital masses or abnormal density. Sinuses: Clear paranasal sinuses. No evidence of sinusitis or mucosal thickening. Mastoid Air Cells: Clear mastoid air cells. No evidence of mastoiditis. Skull: Normal skull morphology. 6 x 8 mm dural-based extra-axial calcified lesion is seen in the left frontal convexity. Differential diagnosis includes incidental meningioma. IMPRESSION: 1. No evidence of acute territorial infarction or intracranial hemorrhage. 2. Suspected small incidental left frontal meningioma. 3. No newly developed lesions. 4. Correlate with clinical findings. Electronically signed by Dick Figueroa 09-27-2024 7:23 PM
--- NOTE | 2024-09-27 19:39 | CT Scan Report ---
EXAM: CT angio abd pelvis wo/w con CLINICAL HISTORY: Chest pain, b/l UE/LE weakness. TECHNIQUE: CTA of the abdomen and pelvis was performed with 115 ml Optiray 320 IV contrast. Coronal and sagittal reconstructive images were also obtained. One of these 3D techniques was utilized: Maximum Intensity Pixel (MIP), 3D Reconstructed Images, Volume Rendered Images, Surface Shaded Rendering. Axial non-contrast sections of the abdomen and pelvis were also obtained. One of the following dose reduction techniques was utilized for this exam.Automated exposure control, adjustment of the mA and/or kV according to patient size, and use of iterative reconstruction. COMPARISON: CT dated 09/18/2023.. FINDINGS: Aorta: The abdominal aorta is normal in caliber. No evidence of aneurysm or dissection. Scattered small vascular calcifications in the aorta and the left common iliac artery. Aortic bifurcation is unremarkable. Renal Arteries: Renal arteries are normal in size and opacification. No evidence of stenosis or occlusion. Symmetrical perfusion of both kidneys. Mesenteric Arteries: Superior mesenteric artery (SMA) and inferior mesenteric artery (RADHA) are normal in caliber and opacification. No evidence of stenosis or occlusion. Celiac Artery: The celiac artery is normal in caliber and opacification. No evidence of stenosis or occlusion. The left gastric artery arises directly from the aorta [normal variant]. Few saccular aneurysmal dilatations of the distal splenic artery with mural calcification measuring up to 1.4 cm. Iliac Arteries: Common, internal, and external iliac arteries are normal in caliber and opacification. No evidence of stenosis, aneurysm, or occlusion. Venous Structures: Inferior vena cava (IVC) and major venous structures are normal in caliber and opacification. No evidence of thrombus or obstruction. Liver: Normal size and morphology. Homogeneous enhancement post-contrast. No focal hepatic lesions. Gallbladder and Biliary System: Is surgically excised. Pancreas: Normal size and contour. Homogeneous enhancement post-contrast. No masses or cystic lesions. Spleen: Normal size and appearance. Homogeneous enhancement post-contrast. Adrenal Glands: Normal size and morphology bilaterally. No adrenal masses. Kidneys and Ureters: Normal size, shape, and position of both kidneys. Homogeneous enhancement post-contrast. No renal stones, masses, or hydronephrosis. Ureters are unremarkable. Bladder: Normal in size and wall thickness. No intraluminal masses. Normal enhancement post-contrast. Bowel: Few scattered colonic diverticulosis without evidence of diverticulitis. No evidence of obstruction, wall thickening, or abnormal dilatation. Lymph Nodes: No pathologically enlarged lymph nodes in the abdomen or pelvis. Peritoneum: No free fluid or free air in the abdomen. Bones: No lytic or sclerotic lesions. Normal alignment and bone density. Soft Tissues: Normal appearance of the visualized soft tissues. Spinal cord stimulator in the left lumbar region. IMPRESSION: 1. Mild atherosclerotic changes with no evidence of hemodynamically significant stenosis or dissection. 2. 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 Correlate with clinical findings. 3. Interval insertion of spinal cord stimulator. 4. No other appreciable changes since the last study. Electronically signed by Dick Figueroa 09-27-2024 7:38 PM
--- NOTE | 2024-09-27 19:39 | CT Scan Report ---
EXAM: CT angio chest dissec wo/w con CLINICAL HISTORY: cp, b/l UE/LE weakness TECHNIQUE: Contiguous 3.[address] angiographic images of the chest were acquired with the administration of intravenous contrast. Coronal and sagittal reconstructions were obtained. 115 ml optiray intravenous contrast was administered for post-contrast images. One of these 3D techniques was utilized: Maximum Intensity Pixel (MIP), 3D Reconstructed Images, Volume Rendered Images, Surface Shaded Rendering. One of the following dose reduction techniques were utilized for this exam: Automated exposure control, adjustment of the mA and/or kV according to patient size, and use of iterative reconstruction. DLP: 1610.25 COMPARISON: 05/25/2022 CT FINDINGS: Aorta: The thoracic aorta is normal in caliber. No evidence of aneurysm or dissection. Tiny scattered vascular calcification of the aorta and its branches. Pulmonary Arteries: Pulmonary arteries are normal in size and opacification. No evidence of pulmonary embolism. No stenosis or filling defects. Superior Vena Cava (SVC) and Inferior Vena Cava (IVC): Normal opacification and caliber. No evidence of thrombus or obstruction. Coronary Arteries: No significant vascular calcification. Patency cannot be accurately assessed due to cardiac motion. Mediastinum: No mediastinal mass or lymphadenopathy. Small hiatus hernia. Heart: Normal size and morphology of the heart. No pericardial effusion. Lungs: Lungs are clear with no evidence of consolidation, nodules, or masses. No pleural effusion or thickening. Bones: Right reverse shoulder replacement. Degenerative changes of the spine. Newly inserted spinal cord stimulator. Soft Tissues: Normal appearance of the visualized soft tissues. No abnormal masses or fluid collections. IMPRESSION: 1. No evidence of pulmonary embolism. 2. Mild atherosclerotic changes. 3. No significant pulmonary abnormalities. 4. Interval insertion of spinal cord stimulator. 5. Right total shoulder replacement. 6. Correlate with clinical findings. 7. No other significant interval changes. Electronically signed by Dick Figueroa 09-27-2024 7:38 PM
[2024-09-27] MEDS: HEPARIN 25000 UNIT/500 ML D5W 25,000 UNITS/500 ML BAG IV SCH (22:06)
--- NOTE | 2024-09-27 22:06 | History & Physical Report ---
Date of Service September 27, 2024 Assessment & Plan (1) Chest pain: (2) Unstable angina: Plan Fannie 64 y/o with PMH with hx hypothyroidism, vasovagal syndrome, anemia, DJD, gastroparesis , CKD, hypothyroidism, hyperlipidemia here due to chat pain and heaviness. Patient had a stress cath done recently outpatient that was positive on 08/2024. Patient states insurance didn't approved cardiac cath outpatient. Today she states having chest pain that radiated to her back while walking lightly. She attributes to have bilateral hand numbness #Crescendo Angina / ACS - Patient with known CAD with worsening chest pain and SOB. No pain at rest. Chest pain free on evaluation. - Stress echo- 09/13/2024 Achieved 4.9 METS with 83% of max predicted heart rate. Stress echo positive for new wall motion abnormality involving the anteroseptum and anterior apex at low level of exercise - Hemodynamically stable. - Electrolytes with hyponatremia - Troponin negative on admission - EKG- sinus rhythm, no ST elevation or depressions - Cardiology consulted, aprec recommendations - Heparin ggt started - Keep in NPO for possible cath intervention in AM - Continue Aspirin 81 mg - Currently on PCSK9 inhibitor - Nitrates sublingual as needed for chest pain, EKG daily - Lipid panel in am - CBC, BMP, PT/INR in AM #DM 2 / Gastroparesis - Hold metformin - Novalog coverage added - Hgb A1C AM # saccular aneurysmal splenic artery - AP CT- saccular aneurysmal dilatations of the distal splenic artery with mural calcification measuring up to 1.4 cm. - Accidental finding. No symptoms - Recommended follow up outpatient # CKD- baseline 1.30 #Hypothyroidism- Continue Levothyroxine #Hyperlipidemia- On Repatha and Gemfibrozil. Did not tolerate statins #GERD- continue PPT DVT prophylaxis- Heparin ggt Dispo- PCU History of Present Illness Primary Care Provider: Madison Barry, DO Fannie 64 y/o with PMH with hx hypothyroidism, vasovagal syndrome, anemia, DJD, gastroparesis , CKD, hypothyroidism, hyperlipidemia here due to chat pain and heaviness. She states having chest pain in the past with heavy walking when she is walking her dogs. Recently she had a Stress echo that was positive. States her property controller wanted her to have a cath performed but insurance didn't approved it. Today she states having chest pain that radiated to her back while walking. On evaluation patient was pain free, denied any SOB or palpitations. Denied any fevers, chills, or abdominal pain. No nausea, vomiting or diarrhea. Ed course- patient placed on heparin drip as per cardiology recommendations. CTA negative for PE. Allergies Allergy/AdvReac Type Severity Reaction Status Date / Time Penicillins Allergy Intermediate Hives Verified 09/27/24 21:39 vancomycin Allergy Intermediate Rash Verified 09/27/24 21:39 tramadol Allergy Mild Rash Verified 09/27/24 21:39 acetaminophen [From [place]] Allergy Unknown Unknown Unverified 09/27/24 21:39 hydrocodone [From [place]] Allergy Unknown Unknown Unverified 09/27/24 21:39 diphenhydramine Allergy Itching Verified 09/27/24 21:39 [From Benadryl] fluvastatin Allergy "Itchy all Verified 09/27/24 21:39 over" rosuvastatin Allergy "Itchy all Verified 09/27/24 21:39 over" tizanidine [From Zanaflex] AdvReac Severe Hallucinati Verified 09/27/24 21:39 ons metoclopramide [From Reglan] AdvReac Intermediate Constipatio Verified 09/27/24 21:39 n morphine AdvReac Intermediate N/V Verified 09/27/24 21:39 Home Medications Medication Instructions Recorded Confirmed Type trazodone 50 mg tablet 50 mg PO HS sleep 11/17/22 09/27/24 History bupropion HCl 150 mg 24 hr tablet, 150 mg PO QAM 30 days #30 tabs 11/29/22 09/27/24 Rx extended release (Wellbutrin XL) buspirone 15 mg tablet 15 mg PO BID #180 tabs 01/07/23 09/27/24 Rx gemfibrozil 600 mg tablet (Lopid) 600 mg PO BID 05/04/23 09/27/24 History cyanocobalamin (vitamin B-12) 1,000 mcg PO Q2D 08/18/23 09/27/24 History 1,000 mcg tablet (Vitamin B-12) metformin 500 mg tablet 500 mg PO BID 08/18/23 09/27/24 History midodrine 5 mg tablet 5 mg PO TID PRN Prior to sedation 03/19/24 09/27/24 History topiramate 100 mg tablet 100 mg PO BID 90 days #180 tabs 03/19/24 09/27/24 Rx topiramate 50 mg tablet 50 mg PO HS 06/12/24 09/27/24 History evolocumab 140 mg/mL subcutaneous 140 mg subcut .EVERY 2 WEEKS 09/27/24 09/27/24 History pen injector (Repatha SureClick) folic acid 400 mcg tablet 0.4 mg PO QAM 09/27/24 09/27/24 History inclisiran 284 mg/1.5 mL 0 mg subcut .EVERY 6 MONTHS 09/27/24 09/27/24 History subcutaneous syringe (Leqvio) levothyroxine 88 mcg tablet 88 mcg PO DAILYBB 09/27/24 09/27/24 History pantoprazole 40 mg tablet,delayed 40 mg PO QAM 09/27/24 09/27/24 History release Past Med/Surg History Problem List (Updated 09/28/24 @ 00:45 by Aniceto Willard MD) Unstable angina Generalized weakness (Acute) Chest pain (Acute) Overactive bladder Flank pain Abnormal urine odor AMS (altered mental status) (Acute) Idiosyncratic reaction to medication after proper dose Gastroparesis reports constant nausea Migraines Osteopenia Pseudogout of hand Interstitial cystitis Impaired fasting blood sugar Memory loss Cognitive and behavioral changes Gastroparesis Secondary osteoarthritis, right shoulder Balance problem Fatty liver Depression with anxiety (Acute) Kidney disease, chronic, stage III (moderate, EGFR 30-59 ml/min) Degenerative arthritis of right shoulder region Hyperlipidemia Medical History (Updated 09/28/24 @ 00:45 by Aniceto Willard MD) Diabetes mellitus, type 2 Hypothyroidism, postablative History of trigger finger (09/05/23) left trigger finger release 09/05/23, [facility] Hypothyroidism Chronic idiopathic constipation Cervical stenosis of spine following with Dr Richmond Camp 08/25/23 Hx of peptic ulcer Hx of peptic ulcer [id number] Hearing loss 33% Bilateral H/A Hx of papillary thyroid carcinoma status post completion thyroidectomy 08/2020 Ovarian cyst Left simple ovarian cyst ultrasound 03/2021 by [employer] Hiatal hernia Claustrophobia MVP (mitral valve prolapse) Reported per patient Not noted per 07/28/20 echo Fibromyalgia GERD (gastroesophageal reflux disease) Controlled Surgical History (Updated 05/02/24 @ 11:10 by Ever Garrison MD) Status post right shoulder hemiarthroplasty Status post reverse total shoulder replacement right shoulder S/P foot surgery, left S/P foot surgery, right multiple History of laparoscopic appendectomy (06/19/22) Laparoscopic Appendectomy, laparoscopic lysis of adhesion Status post complete thyroidectomy (~08/2020) History of foot surgery R/L great toe surgeries Right foot bunionectomy and MTP arthroplasty (03/31/18): LMA#4 at [facility] Left foot great toe Arthrosurface hemiarthroplasty (04/03/21): LMA#4, attempt x1, atraumatic at [facility]. No issues noted per post-op anesthesia progress note. History of liver biopsy History of esophagogastroduodenoscopy (EGD) Hx of cholecystectomy History of partial hysterectomy TLH, ovaries retained Hx of section X3 Hx of carpal tunnel repair R/L Hx of thumb surgery R/L "joint removed" Hx of total knee replacement R/L Hx of elbow surgery R/L Hx of arthroscopy of shoulder right x2, left x1: resurfacing 04/15/20: Grade 1 view, MAC 3, ETT 7.0 + PNB. History of herniorrhaphy right inguinal repair History of colonoscopy History of tonsillectomy Family History Father Diabetes Myocardial infarction ? Sister Thyroid cancer Breast cancer Mother Alzheimer disease Hypertension Other No family history of adverse response to anesthesia Denies family history of Ovarian cancer Prostate cancer Lung cancer Colorectal cancer Uterine cancer Stroke Social History Smoking Status: Never smoker Second Hand Exposure: No; Do You Dip or Chew Tobacco: No; Hx Alcohol Use: No Hx Substance Use: No Preferred Language: Georgian Communication Ability: Effective Visual Impairment: No Limitations Hearing Ability: Hard of Hearing [employer] Required: No Beliefs That Will Affect Care: Taoist Taoist Beliefs: Prodestant marital status: Current Living Situation: Spouse current occupational status: disabled How many Children do You have: 3 Feels Safe at Home: Yes Safety Concerns: Feels Safe At This Time Childhood Exposure to Second-Hand Smoke: No Diet: regular caffeine: No Dental Care, Regularly: Yes Seatbelt Use: never Assistive Devices: Denture - Upper, Glasses and Hearing Aid - Bilateral Review of Systems Review of Systems: as per HPI Physical Exam Constitutional: well developed and well nourished; no acute distress Eyes: PERRL, conjunctivae normal, anicteric sclerae ENMT: external ear and nose normal, oropharynx normal Respiratory: normal respiratory effort, lungs clear to auscultation Cardiovascular: RRR, no murmur, no edema Gastrointestinal (Abdomen): normal bowel sounds, soft, nontender, no hepatosplenomegaly Skin: no rashes, warm and dry Results & Data Results & Data Vital Signs (Past 12 Hours) Vital Signs Temp Pulse Resp BP Pulse Ox O2 Del Method 09/27/24 21:00 73 14 118/77 100 09/27/24 20:48 77 09/27/24 20:30 82 18 85/66 L 99 09/27/24 20:24 81 20 105/66 100 09/27/24 19:36 87 20 109/59 L 99 09/27/24 17:09 74 18 119/70 100 09/27/24 16:54 79 09/27/24 16:39 36.6 C 85 16 141/81 H 97 Room Air Code Status & VTE Plan VTE Prophylaxis Plan VTE Prophylaxis will be ordered: Yes Supervising Physician Co-Signing Physician Notes I personally saw and examined the patient. I independently reviewed the labs, EKG, imaging, problem list, medication list, past medical history and family history. I verified all nava points and agree with resident physician Dr Aniceto Willard MD with the following exceptions and/or additions: 64 year old female presents to the ER with exertional chest pain. Prior stress echo abnormal with plans on outpatient cardiac cath but given worsening symptoms decided to come to the ER. O/E HS RRR, no murmurs, Chest CTAB, Abdo SNT A/P Crescendo angina / unstable angina - IV heparin, continue aspirin, NPO after midnight for possible cardiac cath tomorrow, cardiology consulted Resident Activity Tracking Resident Involvement: Resident Care Provided Care Provided: Adult [facility]
[2024-09-27] MEDS: Heparin IV Adult Wt-Based Low-Dose *NO* INITIAL Bolus Protocol IV STA (22:10)
[2024-09-27] MEDS ORDERED: CARBOHYDRATES FOR HYPOGLYCEMIA PO PRN (23:02)
[2024-09-27] MEDS ORDERED: DEXTROSE 50% 50 ML SYRINGE IV PRN (23:02)
[2024-09-27] MEDS ORDERED: NON-FORMULARY MEDICATION (Evolocumab [Repatha Sureclick] 140 mg/mL pen injector) SQ SCH (23:02)
[2024-09-27] MEDS ORDERED: NITROGLYCERIN SL 0.4 MG/TAB TAB SL PRN (23:02)
[2024-09-27] MEDS ORDERED: GLUCOSE 40% GEL 15 GM TUBE PO PRN (23:02)
[2024-09-27] MEDS ORDERED: GLUCAGON FOR INJ 1 MG VIAL SQ PRN (23:02)
[2024-09-27] MEDS ORDERED: ONDANSETRON INJ 2 MG/ML 2 ML VIAL IV PRN (23:02)
[2024-09-27] MEDS ORDERED: GLUCOSE 10 TAB/TUBE PO PRN (23:02)
[2024-09-27] MEDS ORDERED: MIDODRINE HCL 2.5 MG TAB PO PRN (23:02)
--- OUTSIDE RECORDS SUMMARY | 2024-09-27 23:16 | External Medical Summary | Continuity of Care Document ---
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 Name Role Phone Leo Yost Primary Care Physician [phone] Encounter [facility] [id number] Date(s): 09/18/24 - 09/18/24 [facility] [address], [address] [place] [address] [phone] Encounter Diagnosis Abnormal stress echo(Discharge Diagnosis) - 09/18/24 HLD (hyperlipidemia)(Discharge Diagnosis) - 09/18/24 Discharge Disposition: Home or Self Care Attending Physician: YVETTE Herron Sarah A Referring Physician: YVETTE Herron Sarah A Encounter Type: Clinic Allergies, Adverse Reactions, Alerts Substance Criticality Severity Reaction Reaction Severity Status penicillin Hives Active vancomycin Rash Active HYDROcodone Sedation, confu sed, weak Active metoclopramide Constipation Ac tive morphine Sick Active baclofen Sedation, confu sed, weak Active Benadryl Itchy Active Statins (HMG-CoA reductase inhibitors) pruritis Active tiZANidine Hallucinations Acti ve traMADol Rash Active Assessment and Plan Extracted from: Title:Cardiology Office Visit Note Author:YVETTE Carballo rd, Sarah A Date:09/18/24 Impression: 1. Vasovagal syncope 2. Vertigo 3. Holter study without arrhythmia underlying dizziness, single brief run of PAT, a few PACs, no ventricular ectopy 4. Echocardiogram 06/2022 showing normal LV size, thickness, and function with EF of 65 to 70%, no regional wall motion abnormalities, normal left atrium, mildly dilated right atrium, normal right ventricular function, mild mitral regurgitation, trace to mild tricuspid regurgitation, normal aortic and ascending aorta size 5. Anemia 6. Positive stress echo 08/2024 Achieved 4.9 METS with 83% of max predicted heart rate. Stress echo positive for new wall motion abnormality involving the anteroseptum and anterior apex at low level of exercise Negrita's leg cramps are very painful for her and she did call in yesterday with concerns for them. She has had in the past with the seem to have been worse than usual. Her electrolytes have been normal. Her anemia is stable. She notes that she drinks lots of water during the day. Sounds like she is having muscle spasm with it as her can massage the muscle to relax it which helps. I do not see any medications that should be particular exacerbating this. She can follow-up on it with her PCP. She asked if she can continue doing physical therapy for her feet. I recommended that she stick with just the strengthening and massaging portion for now and avoid exercise machines until her catheterization in a week. She asked if she could continue going on walks and I recommended that she take it easy and that she can take leisurely strolls but if she gets short of breath or has chest heaviness she needs to stop and take a break. She is on appropriate CAD medications including a baby aspirin. She is currently finishing up her home doses of her PCSK9 inhibitor and then will be started on Leqvio. Her blood pressure is controlled. She does have midodrine as needed post surgery as she has had syncope in the past perioperatively. No recent fainting. We reviewed the procedure of cardiac catheterization. We also discussed the possibilities of stenting or referral to CT surgery. She will return to the clinic a couple of weeks after her catheterization Immunizations Given and Recorded Vaccine Date Status Refusal Reason influenza virus vaccine, inactivated 02/27/24 Give n influenza virus vaccine, inactivated 04/06/23 Give n influenza virus vaccine, inactivated 03/18/23 Paulino rded Medications Aspir 81 oral delayed release tablet Start: 09/14/24 1:23:00 PM EDT, 1 tab, PO, Daily Start Date: 09/14/24 Status: Ordered Repeat number: 1 B-12 1000 mcg oral tablet Start: 07/26/23 12:53:00 PM EST, every other day Start Date: 07/26/23 Status: Ordered Repeat number: 1 buPROPion 150 mg/24 hours (XL) oral tablet, extended release Start: 03/09/24 8:13:00 AM EDT, 1 tab, PO, Daily, Disp# 90 tab, Refills: 0, Pharmacy: [facility] Start Date: 03/09/24 Status: Ordered Quantity: 90.0 Unit: tab Repeat number: 1 buPROPion 150 mg/24 hours (XL) oral tablet, extended release See Instructions, Disp# 90 tab, Refills: 3, TAKE 1 TABLET BY MOUTH ONCE DAILY, Pharmacy: [facility] [address] Start Date: 07/10/24 Status: Ordered Quantity: 90.0 Unit: tab Repeat number: 4 busPIRone 15 mg oral tablet Start: 09/03/24 3:09:00 PM EDT, 1 tab, PO, bid, Disp# 180 tab, Refills: 0, Pharmacy: [facility] Start Date: 09/03/24 Status: Ordered Quantity: 180.0 Unit: tab Repeat number: 1 folic acid Start: 09/18/24 10:31:00 AM EDT Start Date: 09/18/24 Status: Ordered Repeat number: 1 gemfibrozil 600 mg oral tablet Start: 05/17/24 2:50:00 PM EST, 1 tab, PO, bid, Disp# 180 tab, Refills: 3, Pharmacy: [facility] Start Date: 05/17/24 Status: Ordered Quantity: 180.0 Unit: tab Repeat number: 4 Leqvio 284 mg/1.5 mL subcutaneous solution Start: 09/18/24 10:39:00 AM EDT, See Instructions, Disp# 1 each, through [facility] [place], other Start Date: 09/18/24 Status: Ordered Quantity: 1.0 Unit: each Repeat number: 1 levothyroxine 88 mcg (0.088 mg) oral tablet Start: 08/06/24 11:43:00 AM EDT, 1 tab, PO, Daily, Disp# 30 tab, Refills: 3, Pharmacy: [facility]229 Start Date: 08/06/24 Stop Date: 12/04/24 Status: Ordered Quantity: 30.0 Unit: tab Repeat number: 4 Indications: Hypothyroidism, unspecified; metFORMIN 500 mg oral tablet Start: 05/17/24 2:50:00 PM EST, 1 tab, PO, bid, Disp# 180 tab, Refills: 3, Pharmacy: [facility] Start Date: 05/17/24 Status: Ordered Quantity: 180.0 Unit: tab Repeat number: 4 Indications: Type 2 diabetes mellitus without complications; midodrine 5 mg oral tablet Start: 05/01/24 9:58:00 AM EST, PRN before sedation Start Date: 05/01/24 Status: Ordered Repeat number: 1 pantoprazole 40 mg oral delayed release tablet Start: 11/21/23 9:08:00 AM EDT, 2 tab, PO, Daily Start Date: 11/21/23 Status: Ordered Repeat number: 1 topiramate 150 mg oral capsule, extended release Start: 08/25/23 2:54:00 PM EDT, 2 cap, Daily Start Date: 08/25/23 Status: Ordered Repeat number: 1 traZODone 50 mg oral tablet TAKE 1 TABLET BY MOUTH ONCE DAILY AT BEDTIME Start Date: 09/04/24 Status: Ordered Repeat number: 1 triamcinolone 0.1% topical cream Start: 08/02/24 1:50:00 PM EST, 1 appl, topical, bid, Disp# 80 g, Pharmacy: [facility] Start Date: 08/02/24 Status: Ordered Quantity: 80.0 Unit: g Repeat number: 1 Indications: Dermatitis, unspecified; Mental Status 09/18/24 Barriers to Learning one year None evide nt Mandatory Health Literacy Documentation Yes Health Literacy Communication Barriers N ever Primary Language Mongolian Problem List Condition Confirmation Course Effective Dates Status H ealth Status Informant AC joint pain Confirmed Active Interstitial cystitis Confirmed Active Chronic kidney disease, stage 3 Confirmed Active Chronic pain syndrome Confirmed Active Claustrophobia Confirmed Active Type 2 diabetes mellitus with diabetic autonomic (poly)neuropathy Confirmed 05/01/24 Active Diaphragmatic hernia without obstruction or gangrene 1 Confirmed 07/30/24 Active Dizzinesses Confirmed Active Chronic GERD Confirmed Active Gastroparesis Confirmed Active Hx of colonic polyps Confirmed Active Hyperlipidemia Confirmed Active Hypothyroidism Confirmed Active Anemia, iron deficiency Confirmed Active Chronic nausea Confirmed Active DJD (degenerative joint disease) Confirmed Active Osteopenia Confirmed Active Hypotonia Confirmed Active Right anterior shoulder pain Confirmed Active Trigger finger, left ring finger Confirmed Active Malnutrition Confirmed Active 1Added per Car Packer Review-JW-08/16/24 Diagnosis Diagnosis Type Effective Dates Health Status Cl inical Service Informant Abnormal stress echo Discharge Diagnosis 09/18/24 Non-Specified HLD (hyperlipidemia) Discharge Diagnosis 09/18/24 Non-Specified Procedures Procedure Date Related Diagnosis Body Site Status Release of trigger finger 1 10/17/23 Completed Colonoscopy 2 09/28/23 Completed EGD - esophagogastroduodenoscopy 3 09/28/23 Completed Back surgery, spinal cord stimulator 05/18/23 Completed Right foot 4 05/21/22 Completed Left foot 5 2017 Completed Right shoulder SLAP lesion 2018 Completed Tenotomy 6 2014 Completed Total knee replacement 7 2011 Completed Biopsy of liver Completed Cholecystectomy Completed Hysterectomy Completed Thyroidectomy Completed 1right ring and middle finger 2Repeat in 5 years. No polyps. Diverticulosis found in sigmoid colon. 3Normal esophagus. Normal stomach. Normal examined duodenum, biopsied. Two biopsies were obtained in the gastric antrum. 4surgery 5surgery 6right elbow 7right knee Vital Signs Most recent to oldest [Reference Range]: 1 Heart Rate 85 bpm (09/18/24 10:34 AM) Respiratory Rate 18 br/min (09/18/24 10:34 AM) Blood Pressure 118/70mmHg (09/18/24 10:34 AM) BP Location # 1 Right Arm (09/18/24 10:34 AM) Social History Social History Type Response Smoking Status Never smoked cigaret norma Sex Sex Representation Female (finding) Cardiology Outpatient Note * YVETTE Herron Sarah A: PERFORM, MODIFY Event Display: Cardiology Outpt Note Authored Date: Primary Care Provider DO Yost Alonna Paige Referring Provider YVETTE Herron Sarah A Chief Complaint test resuslts History of Present Illness Ms. Casas presents to discuss her upcoming cardiac catheterization. She asked to have this appointment so that we could discuss further questions she had about her testing. She is here with her . She continues to have dyspnea and chest heaviness with exertion. No rest symptoms. She notes that for two years she has had periodic pain at her sternum that radiates to back which lasts hours. Afterward the muscles in her chest are very tender and feel exhausted. It's tender to touch at her sternum when it's happening. "It feels like I might have swallowed a whole egg like a real bad indigestion". She had terrible leg cramps on Tuesday which she has had before but these were worse. She felt that she would pass out so she laid down on the floor and then her could massage it out whichhelped Review of Systems All other systems reviewed and negative except as discussed in the HPI Physical Exam Vitals & Measurements HR: 85 (Monitored) RR: 18 BP: 118/70 SpO2: 95% Physical Examination General: Alert and oriented, No acute distress. Respiratory: Lungs are clear to auscultation, Respirations are non-labored. Cardiovascular: Normal rate, Regular rhythm, No murmur, No edema, no carotid bruits to auscultation bilaterally. Integumentary: Warm, Dry, [place] Neurologic: Alert, Oriented. Cognition and Speech: Speech clear and coherent. Psychiatric: Cooperative, Appropriate mood & affect. Assessment/Plan Impression: 1. Vasovagal syncope 2. Vertigo 3. Holter study without arrhythmia underlying dizziness, single brief run of PAT, a few PACs, no ventricular ectopy 4. Echocardiogram 06/2022 showing normal LV size, thickness, and function with EF of 65 to 70%, no regional wall motion abnormalities, normal left atrium, mildly dilated right atrium, normal right ventricular function, mild mitral regurgitation, trace to mild tricuspid regurgitation, normal aortic and ascending aorta size 5. Anemia 6. Positive stress echo 08/2024 Achieved 4.9 METS with 83% of max predicted heart rate. Stress echo positive for new wall motion abnormality involving the anteroseptum and anterior apex at low levelof exercise Negrita's leg cramps are very painful for her and she did call in yesterday with concerns for them. She has had in the past with the seem to have been worse than usual. Her electrolytes have been normal. Her anemia is stable. She notes that she drinks lots of water during the day. Soundslike she is having muscle spasm with it as her can massage the muscle to relax it which helps. I do not see any medications that should be particular exacerbating this. She can follow-up on it with her PCP. She asked if she can continue doing physical therapy for her feet. I recommended that she stick with just the strengthening and massaging portion for now and avoid exercise machines until her catheterization in a week. She asked if she could continue going on walks and I recommended that shetake it easy and that she can take leisurely strolls but if she gets short of breath or has chest heaviness she needs to stop and take a break. She is on appropriate CAD medications including a baby aspirin. She is currently finishing up her home doses of her PCSK9 inhibitor and then will be started on Leqvio. Her blood pressure is controlled. She does have midodrine as needed post surgery as she has hadsyncope in the past perioperatively. No recent fainting. We reviewed the procedure of cardiac catheterization. We also discussed the possibilities of stenting or referral to CT surgery. She will return to the clinic a couple of weeks after her catheterization Problem List/Past Medical History Ongoing AC joint pain Anemia, iron deficiency Chronic GERD Chronic kidney disease, stage 3 Chronic nausea Chronic pain syndrome Claustrophobia Diaphragmatic hernia without obstruction or gangrene Dizzinesses DJD (degenerative joint disease) Gastroparesis Hx of colonic polyps Hyperlipidemia Hypothyroidism Hypotonia Interstitial cystitis Malnutrition Osteopenia Right anterior shoulder pain Trigger finger, left ring finger Type 2 diabetes mellitus with diabetic autonomic (poly)neuropathy Procedure/Surgical History •Release of trigger finger| Service Date: 10/17/2023•EGD - esophagogastroduodenoscopy| Service Date: 09/28/2023•Colonoscopy| Service Date: 09/28/2023•Back surgery, spinal cord stimulator| Service Date: 05/18/2023•Right foot| Service Date: 05/21/2022•Right shoulder SLAP lesion| Service Date: 2017•Left foot| Service Date: 2017•Tenotomy| Service Date: 2014•Total knee replacement| Service Date: 2011•Thyroidectomy•Biopsy of liver•Hysterectomy•Cholecystectomy Medications aspirin(Aspir 81 oral delayed release tablet), 81 mg= 1 tab, PO, Daily buPROPion(buPROPion 150 mg/24 hours (XL) oral tablet, extended release), 1 tab, PO, Daily buPROPion(buPROPion 150 mg/24 hours (XL) oral tablet, extended release), See Instructions, 3 refills busPIRone(busPIRone 15 mg oral tablet), 1 tab, PO, bid cyanocobalamin(B-12 1000 mcg oral tablet) folic acid gemfibrozil(gemfibrozil 600 mg oral tablet), 600 mg= 1 tab, PO, bid, 3 refills inclisiran(Leqvio 284 mg/1.5 mL subcutaneous solution), See Instructions levothyroxine(levothyroxine 88 mcg (0.088 mg) oral tablet), 88 mcg= 1 tab, PO, Daily, 3 refills metFORMIN(metFORMIN 500 mg oral tablet), 500 mg= 1 tab, PO, bid, 3 refills midodrine(midodrine 5 mg oral tablet) pantoprazole(pantoprazole 40 mg oral delayed release tablet), 80 mg= 2 tab, PO, Daily topiramate(topiramate 150 mg oral capsule, extended release), 300 mg= 2 cap, Daily traZODone(traZODone 50 mg oral tablet) triamcinolone topical(triamcinolone 0.1% topical cream), 1 appl, topical, bid Allergies Benadryl Itchy HYDROcodone Sedation, confused, weak Statins (HMG-CoA reductase inhibitors) pruritis baclofen Sedation, confused, weak metoclopramide Constipation morphine Sick penicillin Hives tiZANidine Hallucinations traMADol Rash vancomycin Rash Social History Smoking Status Never smoked cigarettes Alcohol - Denies Alcohol Use Exercise Duration (average number of minutes):20 Times per week:Daily Exercise type:Walking Substance Abuse - Denies Substance Abuse Tobacco - Denies Tobacco Use Family History Breast cancer: Sister. Dementia: Mother. Diabetes: Father. Hyperlipidemia: Father. Hypertension: Mother. Kidney disease: Sister. Type II diabetes mellitus: Father. Health Status Family Member(s) Electronic Signature on File CC: Leo Yost DO [address] [place] [address] Electronically Reviewed/Signed by: YVETTE Sampson Author Signature Dt/Tm:09/18/2024 11:51 AM [facility] [place] [facility] Patient Care team information Care Team Personnel Name: DO Trejo Amanda Position: Resident Member Role: Lifetime Relationship Address: [address] [place] [address] Telecom: [phone] Name: DO Yost Alonna Paige Position: Resident Member Role: Primary Care Provider Address: [address] [place] [address] Telecom: [phone] Care Team Related Persons Name: NELL CASAS Insurance Providers Guarantor name: Health Plan Information #: 1 Payer: [facility] Member Number: [id number] Policy Number: NA Group Number: [id number] Payer Identifier: [id number] Health Plan Information #: 2 Payer: [facility] Member Number: [id number] Policy Number: SRINIVASA Group Number: NA Payer Identifier: [id number]
--- OUTSIDE RECORDS SUMMARY | 2024-09-27 23:17 | External Medical Summary | Continuity of Care Document ---
Author Name Unknown Organization [facility] [address] [place] [id number] Care Team Providers Care Medicaid Nurse Name Role Phone Leo Yost Primary Care Physician [phone] [id number]/14/24 - 09/14/24 [facility] 0 [facility] [address] [facility] [address] [facility] [address] [place] [address] [phone] Encounter Diagnosis Abnormal stress test(Discharge Diagnosis) - 09/14/24 Discharge Disposition: Home or Self Care Attending Physician: MD Perez Christopher Encounter Type: Clinic Allergies, Adverse Reactions, Alerts Substance Criticality Severity Reaction Reaction Severity Status penicillin Hives Active vancomycin Rash Active HYDROcodone Sedation, confu sed, weak Active metoclopramide Constipation Ac tive morphine Sick Active baclofen Sedation, confu sed, weak Active Benadryl Itchy Active Statins (HMG-CoA reductase inhibitors) pruritis Active tiZANidine Hallucinations Acti ve traMADol Rash Active Immunizations Given and Recorded Vaccine Date Status [...] Daily, Disp# 90 tab, Refills: 0, Pharmacy: [facility] [id number] Start Date: 03/09/24 Status: Ordered Quantity: 90.0 Unit: tab Repeat number: 1 buPROPion 150 mg/24 hours (XL) oral tablet, extended release See Instructions, Disp# 90 tab, Refills: 3, TAKE 1 TABLET BY MOUTH ONCE DAILY, Pharmacy: [facility] [id number] Start Date: 07/10/24 Status: Ordered Quantity: 90.0 Unit: tab Repeat number: 4 busPIRone 15 mg oral tablet Start: 09/03/24 3:09:00 PM EDT, 1 tab, PO, bid, Disp# 180 tab, Refills: 0, Pharmacy: [facility] [id number] Start Date: 09/03/24 Status: Ordered Quantity: 180.0 Unit: tab Repeat number: 1 gemfibrozil 600 mg oral tablet Start: 05/17/24 2:50:00 PM EST, 1 tab, PO, bid, Disp# 180 tab, Refills: 3, Pharmacy: [facility] [id number] Start Date: 05/17/24 Status: Ordered Quantity: 180.0 Unit: tab Repeat number: 4 levothyroxine 88 mcg (0.088 mg) oral tablet Start: 08/06/24 11:43:00 AM EDT, 1 tab, PO, Daily, Disp# 30 tab, Refills: 3, Pharmacy: [facility] Start Date: 08/06/24 Stop Date: 12/04/24 Status: Ordered Quantity: 30.0 Unit: tab Repeat number: 4 Indications: Hypothyroidism, unspecified; metFORMIN 500 mg oral tablet Start: 05/17/24 2:50:00 PM EST, 1 tab, PO, bid, Disp# 180 tab, Refills: 3, Pharmacy: [facility] [address] Start Date: 05/17/24 Status: Ordered Quantity: [...] appl, topical, bid, Disp# 80 g, Pharmacy: [facility] Start Date: 08/02/24 Status: Ordered Quantity: 80.0 Unit: g Repeat number: 1 Indications: Dermatitis, unspecified; Mental Status 09/13/24 Barriers to Learning one year None evide nt Communication Barrier Present No Health Literacy Communication Barriers N ever Primary Language Kiswahili Problem List Condition Confirmation Course Effective Dates [...] Confirmed Active Malnutrition Confirmed Active 1Added per Icd 9 Coder Review-JW-08/16/24 Diagnosis Diagnosis Type Effective Dates Health Status Cl inical Service Informant Abnormal stress test Discharge Diagnosis 09/14/24 Non-Specified Procedures Procedure Date Related Diagnosis Body [...] Most recent to oldest [Reference Range]: 1 Height 162 cm (09/14/24 1:24 AM) Patient Weight 51.2 kg (09/14/24 1:24 AM) Body Mass Index 19.51 kg/m2 (09/14/24 1:24 AM) Temperature [36.5-37.9 DegC] 36.7 DegC (09/14/24 1:24 AM) Heart Rate 80 bpm (09/14/24 1:24 AM) Blood Pressure 138/76mmHg (09/14/24 1:24 AM) BP Location # 1 Left Arm (09/14/24 1:24 AM) Social History Social History Type Response Smoking Status Never smoked cigaret norma Sex Sex Representation Female (finding) Patient Care team information Care Team Personnel Name: DO Trejo Amanda Position: Resident Member Role: Lifetime Relationship Address: [address] [place] [address] Telecom: [phone] Name: DO Yost Alonna Paige Position: Resident Member Role: Primary Care Provider Address: [address] [place] [address] Telecom: [phone] Care Team Related Persons Name: NELL ALLISON Insurance Providers Guarantor name: [employer]ATUM Health Plan Information #: 1 Payer: [employer] Member Number: [id number] Policy Number: NA Group Number: [id number] Payer Identifier: [id number] Health Plan Information #: 2 Payer: [employer] Member Number: [id number] Policy Number: NA Group Number: NA Payer Identifier: [id number]
[2024-09-27] MEDS: ACETAMINOPHEN 1,000 MG/100 ML VIAL IV STA (23:23)
[2024-09-28] MEDS: TOPIRAMATE 100 MG TAB PO STA (00:27)
[2024-09-28] MEDS: traZODone HCL 50 MG TAB PO ONE (00:27)
[2024-09-28] MEDS: gemfibroziL 600 MG TAB PO ONE (00:28)
[2024-09-28] MEDS: busPIRone 15 MG TAB PO STA (00:28)
[2024-09-28 04:47] LABS: Basophils # (auto) 0.03 K/uL (0.00-0.20); Basophils % (auto) 0.5 %; Eosinophils # (auto) 0.44 K/uL (0.00-0.50); Eosinophils % (auto) 7.8 %; Hematocrit (blood only) 31.5 % (37.0-47.0); Hemoglobin 10.6 g/dl (12.0-16.0); Immature Granulocytes # (auto) 0.04 K/uL (0.01-0.20); Immature Granulocytes % (auto) 0.7 %; Lymphocytes # (auto) 2.02 K/uL (1.20-3.40); Lymphocytes % (auto) 35.9 %; Mean Corpuscular Hemoglobin 30.1 pg (25.0-34.0); Mean Corpuscular Hgb Conc 33.7 g/dL (32.0-36.0); Mean Corpuscular Volume 89.5 fL (80.0-100.0); Mean Platelet Volume 9.8 fL (9.4-12.4); Monocytes # (auto) 0.57 K/uL (0.11-0.59); Monocytes % (auto) 10.1 %; Neutrophils # (auto) 2.52 K/uL (1.40-6.50); Platelet Count 394 K/uL (130-400); RDW Coefficient of Variation 12.5 % (11.5-14.5); RDW Standard Deviation 40.6 fL (36.4-46.3); Red Blood Count 3.52 M/uL (4.20-5.40); White Blood Count 5.62 K/ul (4.8-10.8)
[2024-09-28 05:03] LABS: Alanine Aminotransferase 5 U/L (7-52); Albumin Globulin Ratio 1.7 (0.9-2); Albumin Level 3.9 gm/dl (3.4-5.0); Alkaline Phosphatase 54 U/L (34-104); Anion Gap 10 (3-11); Aspartate Aminotransferase 10 U/L (13-39); BUN Creatinine Ratio 11.5 (10-20); Bilirubin,Total 0.3 mg/dl (0.2-1.0); Blood Urea Nitrogen 18 mg/dl (6-23); Calcium 8.5 mg/dl (8.6-10.3); Carbon Dioxide 18 mmol/L (21-32); Chloride 109 mmol/L (98-107); Cholesterol 170 mg/dl (0-200); Creatinine Clr Calc Pharmacy 29.2 ml/min; Globulin 2.3 gm/dl (2.5-4.0); Glucose 94 mg/dl (70-99(Fasting)); HDL Cholesterol 42 mg/dl; LDL Cholesterol Calculated 105 mg/dl; Magnesium 2.1 mg/dl (1.7-2.4); Potassium 3.3 mmol/L (3.5-5.1); Sodium 137 mmol/L (136-145); Total Protein 6.2 gm/dl (6.0-8.3); Triglycerides 114 mg/dl (0-150); VLDL Cholesterol 23 mg/dl (0-30)
[2024-09-28 05:10] LABS: ANTI-Xa, UFH(UnfractionatedHep 0.46 IU/ml (0.3-0.7)
[2024-09-28 05:14] LABS: Partial Thromboplastin Ratio 1.4; Partial Thromboplastin Time 37 Seconds (21-31)
[2024-09-28] MEDS: LEVOTHYROXINE SODIUM 88 MCG TABLET PO SCH (05:44)
[2024-09-28] MEDS: INSULIN ASPART PER UNIT CHARGE SC SCH ×2 (05:47→16:45)
--- NOTE | 2024-09-28 06:43 | Billing Data ---
Date of Service September 27, 2024 Coding Level of Care Code 04314 INT INP/OBS CARE
[2024-09-28 06:59] LABS: Estimated Average Glucose 105 mg/dl; Hemoglobin A1C 5.3 % (4.5-5.6)
[2024-09-28 07:38] LABS: Troponin I High Sensitivity < 2.3 pg/ml (0-14)
[2024-09-28] MEDS: PANTOprazole 40 MG TAB PO SCH (08:16)
[2024-09-28] MEDS: buPROPion XL 150 MG TABCR PO SCH (08:16)
[2024-09-28] MEDS: FOLIC ACID 400 MCG TAB PO SCH (08:16)
[2024-09-28] MEDS: busPIRone 15 MG TAB PO SCH (08:16)
[2024-09-28] MEDS: ASPIRIN 81 MG ECTAB PO SCH (08:16)
[2024-09-28] MEDS: ACETAMINOPHEN 325 MG TAB PO PRN (08:16)
[2024-09-28] MEDS: gemfibroziL 600 MG TAB PO SCH (08:17)
[2024-09-28] MEDS: TOPIRAMATE 100 MG TAB PO SCH (08:17)
--- NOTE | 2024-09-28 09:25 | Cardiology Consultation ---
Date of Consultation September 28, 2024 Assessment & Plan (1) Unstable angina: (2) Abnormal stress echo: (3) Diabetes: (4) Gastroparesis: (5) Hypercholesterolemia: (6) Renal insufficiency: She was given IV dye last night for her CAT scan. She is receiving normal saline at this time I will continue the normal saline even after her catheterization. We can recheck her creatinine as well later today. (7) Anemia: Her anemia appears normochromic normocytic. She denies history of GI bleeding. This may be related to her gastroparesis and perhaps iron malabsorption from her stomach issues. Plan For left heart catheterization to define her coronary anatomy. Will not perform a ventriculogram given her prior echo with the assessment of LV function. Will minimize the use of IV dye given her mild renal insufficiency. Continue IV fluids pre and post catheterization. Her case was discussed with Dr. Arjun Khan and he plans on doing the catheterization today. History of Present Illness Reason for Consultation: Cardiac eval chest pain Requesting Physician: Madison Gonzalez Attending Physician: Arthur Contreras History of Present Illness Negrita is a very nice but nervous 64-year-old woman who I first met several weeks ago when I did her stress echo. She is a patient of my partner Mary Lopez. She has been having some exertional chest discomfort for some time now. Confounding this is a history of gastroparesis as well as diabetes. She has a lot of GI symptoms as well. Her stress echo she had very poor exercise tolerance, had reproducible chest tightness and heaviness on the treadmill with associated ST-T wave changes. She also had wall motion abnormality with exercise involving the anteroseptal as well as anteroapex. In addition to her gastroparesis and diabetes she has also had hypercholesterolemia and has had difficulty with statins.. She came into the hospital yesterday after having intermittent chest tightness and heaviness for about 3 days. Her initial EKG did not show ST-T wave changes although she was pain-free when this was done. She also underwent a CTA of her chest and abdomen. I do not see any specific coronary artery calcification however there is a lot of motion artifact. There is scattered atheroma noted in her abdominal aorta as well as the iliacs. The CTA of her chest was negative for pulmonary embolus. It should be noted that we attempted to obtain heart catheterization from her insurance as an outpatient after her abnormal stress test several weeks ago however her insurance denied authorization for the catheterization. Given her increase in ongoing cardiac symptoms cardiac catheterization for definitive diagnosis is recommended. She is currently on aspirin as well as IV heparin. The procedure of catheterization was described to her including all the benefits and risk. She agrees to proceed with the planned test. Because she received IV contrast last night I am going to start her on some saline. She is very nervous about getting IVs and requested giving her something for her nerves. I will give her a small dose of Ativan for now. Consent was obtained with her in the room Allergies Allergy/AdvReac Type Severity Reaction Status Date / Time Penicillins Allergy Intermediate Hives Verified 09/27/24 21:39 vancomycin Allergy Intermediate Rash Verified 09/27/24 21:39 tramadol Allergy Mild Rash Verified 09/27/24 21:39 acetaminophen [From [place]] Allergy Unknown Unknown Unverified 09/27/24 21:39 hydrocodone [From [place]] Allergy Unknown Unknown Unverified 09/27/24 21:39 diphenhydramine Allergy Itching Verified 09/27/24 21:39 [From Benadryl] fluvastatin Allergy "Itchy all Verified 09/27/24 21:39 over" rosuvastatin Allergy "Itchy all Verified 09/27/24 21:39 over" tizanidine [From Zanaflex] AdvReac Severe Hallucinati Verified 09/27/24 21:39 ons metoclopramide [From Reglan] AdvReac Intermediate Constipatio Verified 09/27/24 21:39 n morphine AdvReac Intermediate N/V Verified 09/27/24 21:39 Home Medications Medication Instructions Recorded Confirmed Type trazodone 50 mg tablet 50 mg PO HS sleep 11/17/22 09/27/24 History bupropion HCl 150 mg 24 hr tablet, 150 mg PO QAM 30 days #30 tabs 11/29/22 09/27/24 Rx extended release (Wellbutrin XL) buspirone 15 mg tablet 15 mg PO BID #180 tabs 01/07/23 09/27/24 Rx gemfibrozil 600 mg tablet (Lopid) 600 mg PO BID 05/04/23 09/27/24 History cyanocobalamin (vitamin B-12) 1,000 mcg PO Q2D 08/18/23 09/27/24 History 1,000 mcg tablet (Vitamin B-12) metformin 500 mg tablet 500 mg PO BID 08/18/23 09/27/24 History midodrine 5 mg tablet 5 mg PO TID PRN Prior to sedation 03/19/24 09/27/24 History topiramate 100 mg tablet 100 mg PO BID 90 days #180 tabs 03/19/24 09/27/24 Rx topiramate 50 mg tablet 50 mg PO HS 06/12/24 09/27/24 History evolocumab 140 mg/mL subcutaneous 140 mg subcut .EVERY 2 WEEKS 09/27/24 09/27/24 History pen injector (Repatha SureClick) folic acid 400 mcg tablet 0.4 mg PO QAM 09/27/24 09/27/24 History inclisiran 284 mg/1.5 mL 0 mg subcut .EVERY 6 MONTHS 09/27/24 09/27/24 History subcutaneous syringe (Leqvio) levothyroxine 88 mcg tablet 88 mcg PO DAILYBB 09/27/24 09/27/24 History pantoprazole 40 mg tablet,delayed 40 mg PO QAM 09/27/24 09/27/24 History release Patient History Medical History Diabetes mellitus, type 2 Hypothyroidism, postablative History of trigger finger (09/05/23) left trigger finger release 09/05/23, [facility] Hypothyroidism Chronic idiopathic constipation Cervical stenosis of spine following with Dr Richmond Camp 08/25/23 Hx of peptic ulcer Hx of peptic ulcer 8836-9358 Hearing loss 33% Bilateral H/A Hx of papillary thyroid carcinoma status post completion thyroidectomy 08/2020 Ovarian cyst Left simple ovarian cyst ultrasound 03/2021 by BUSINESS SERVICES ANALYST Hiatal hernia Claustrophobia MVP (mitral valve prolapse) Reported per patient Not noted per 07/28/20 echo Fibromyalgia GERD (gastroesophageal reflux disease) Controlled Surgical History Status post right shoulder hemiarthroplasty Status post reverse total shoulder replacement right shoulder S/P foot surgery, left S/P foot surgery, right multiple History of laparoscopic appendectomy (06/19/22) Laparoscopic Appendectomy, laparoscopic lysis of adhesion Status post complete thyroidectomy (~08/2020) History of foot surgery R/L great toe surgeries Right foot bunionectomy and MTP arthroplasty (03/31/18): LMA#4 at [facility] Left foot great toe Arthrosurface hemiarthroplasty (04/03/21): LMA#4, attempt x1, atraumatic at [facility]. No issues noted per post-op anesthesia progress note. History of liver biopsy History of esophagogastroduodenoscopy (EGD) Hx of cholecystectomy History of partial hysterectomy TLH, ovaries retained Hx of section X3 Hx of carpal tunnel repair R/L Hx of thumb surgery R/L "joint removed" Hx of total knee replacement R/L Hx of elbow surgery R/L Hx of arthroscopy of shoulder right x2, left x1: resurfacing 04/15/20: Grade 1 view, MAC 3, ETT 7.0 + PNB. History of herniorrhaphy right inguinal repair History of colonoscopy History of tonsillectomy Family History Father Diabetes Myocardial infarction ? Sister Thyroid cancer Breast cancer Mother Alzheimer disease Hypertension Other No family history of adverse response to anesthesia Denies family history of Ovarian cancer Prostate cancer Lung cancer Colorectal cancer Uterine cancer Stroke Social History Smoking Status: Never smoker Second Hand Exposure: No; Do You Dip or Chew Tobacco: No; Hx Alcohol Use: No Hx Substance Use: No Preferred Language: Tanzanian Communication Ability: Effective Visual Impairment: No Limitations Hearing Ability: Hard of Hearing Storage Management Consultant Required: No Beliefs That Will Affect Care: Confucianism Confucianism Beliefs: Prodestant marital status: Current Living Situation: Spouse current occupational status: disabled How many Children do You have: 3 Feels Safe at Home: Yes Safety Concerns: Feels Safe At This Time Childhood Exposure to Second-Hand Smoke: No Diet: regular caffeine: No Dental Care, Regularly: Yes Seatbelt Use: never Assistive Devices: Denture - Upper, Glasses and Hearing Aid - Bilateral Review of Systems Review of Systems: All systems reviewed & are unremarkable except as noted in HPI & below Physical Exam Physical Exam: Awake alert oriented in mild anxiety Respiratory: Clear to Cardiovascular: No murmurs appreciated Results & Data Vital Signs (Past 12 Hours) Vital Signs Temp Pulse Pulse Resp BP BP Pulse Ox 09/28/24 07:40 36.6 C 79 18 104/62 98 09/28/24 03:46 36.7 C 83 18 99/59 L 96 09/27/24 23:15 89 09/27/24 23:14 36.5 C 77 16 127/77 98 09/27/24 22:36 71 20 129/69 100 09/27/24 22:03 77 18 133/72 100 09/27/24 21:30 86 20 129/88 100 O2 Del Method 09/28/24 07:40 Room Air 09/28/24 03:46 Room Air 09/27/24 23:15 09/27/24 23:14 Room Air 09/27/24 22:36 09/27/24 22:03 09/27/24 21:30 Laboratory Results Abnormal lab results 09/27/24 09/27/24 09/28/24 Range/Units 17:00 23:28 04:06 RBC 3.54 L 3.52 L (4.20-5.40) M/uL Hgb 10.6 L 10.6 L (12.0-16.0) g/dl Hct 31.0 L 31.5 L (37.0-47.0) % Plt Count 408 H (130-400) K/uL Ceiba # (Auto) 0.63 H (0.11-0.59) K/uL Eos # (Auto) 0.68 H (0.00-0.50) K/uL APTT 37 H (21-31) Seconds Sodium 132 L (136-145) mmol/L Potassium 3.3 L (3.5-5.1) mmol/L Chloride 109 H (98-107) mmol/L Carbon Dioxide 17 L 18 L (21-32) mmol/L Anion Gap 12 H (3-11) Creatinine 1.49 H 1.57 H (0.6-1.2) mg/dl POC Glucose 117 H (70-99) mg/dl Calcium 8.5 L (8.6-10.3) mg/dl AST 10 L (13-39) U/L ALT 6 L 5 L (7-52) U/L Globulin 2.3 L (2.5-4.0) gm/dl Medications Administered Current Inpatient Medications Acetaminophen (Acetaminophen 325 Mg Tab) 650 mg PO Q4H PRN PRN Reason: Pain or Fever Stop: 10/27/24 23:01 Last Admin: 09/28/24 08:16 Dose: 650 mg Aspirin (Aspirin 81 Mg Ectab) 81 mg PO QAM [facility] Stop: 10/28/24 08:59 Last Admin: 09/28/24 08:16 Dose: 81 mg Bupropion HCl (Bupropion Xl 150 Mg Tabcr) 150 mg PO QAM [facility] Stop: 10/28/24 08:59 Last Admin: 09/28/24 08:16 Dose: 150 mg Buspirone HCl (Buspirone 15 Mg Tab) 15 mg PO BID [facility] Stop: 10/28/24 08:59 Last Admin: 09/28/24 08:16 Dose: 15 mg Dextrose (Dextrose 50% 50 Ml Syringe) 25 - 50 ml IV UD PRN; Protocol PRN Reason: Hypoglycemia Protocol Stop: 10/27/24 23:01 Folic Acid (Folic Acid 400 Mcg Tab) 400 [facility] Stop: 10/28/24 08:59 Last Admin: 09/28/24 08:16 Dose: 400 mcg Gemfibrozil (Gemfibrozil 600 Mg Tab) 600 mg PO BID [facility] Stop: 10/28/24 08:59 Last Admin: 09/28/24 08:17 Dose: 600 mg Glucagon (Glucagon For Inj 1 Mg Vial) 1 mg SQ UD PRN; Protocol PRN Reason: Hypoglycemia Protocol Stop: 10/27/24 23:01 Glucose (Glucose 40% Gel 15 Gm Tube) 15 - 30 gm PO UD PRN; Protocol PRN Reason: Hypoglycemia Protocol Stop: 10/27/24 23:01 Glucose (Glucose 10 Tab/Tube) 4 - 8 tab PO UD PRN; Protocol PRN Reason: Hypoglycemia Protocol Stop: 10/27/24 23:01 Heparin Sodium/Dextrose (Heparin 36841 Unit/500 Ml D5w) 25,000 units in 500 mls @ 13 mls/hr IV .Q24H FREDDIE; Protocol Stop: 10/27/24 21:29 Last Titration: 09/28/24 07:06 Dose: 650 units/hr, 13 mls/hr Sodium Chloride (Nss) 1,000 mls @ 125 mls/hr IV .Q8H [facility] Stop: 10/01/24 09:29 Insulin Aspart (Insulin Aspart Per Unit Charge) 0 units SC Q6 FREDDIE Stop: 10/28/24 05:59 Last Admin: 09/28/24 05:47 Dose: Not Given Levothyroxine Sodium (Levothyroxine Sodium 88 Mcg Tablet) 88 mcg PO DAILYBB [facility] Stop: 10/28/24 06:29 Last Admin: 09/28/24 05:44 Dose: 88 mcg Midodrine (Midodrine Hcl 2.5 Mg Tab) 5 mg PO TID PRN PRN Reason: Prior to sedation Stop: 10/27/24 23:01 Miscellaneous (Carbohydrates For Hypoglycemia ) 15 - 30 gm PO UD PRN PRN Reason: Hypoglycemia Protocol Stop: 10/27/24 23:01 Nitroglycerin (Nitroglycerin Sl 0.4 Mg/Tab Tab) 0.4 mg SL Q5M PRN PRN Reason: Chest Pain Stop: 10/27/24 23:01 Ondansetron HCl (Ondansetron Inj 2 Mg/Ml 2 Ml Vial) 4 mg IV Q6H PRN PRN Reason: Nausea Stop: 10/27/24 23:01 Pantoprazole Sodium (Pantoprazole 40 Mg Tab) 40 mg PO QAM [facility] Stop: 10/28/24 08:59 Last Admin: 09/28/24 08:16 Dose: 40 mg Topiramate (Topiramate 50 Mg Tab) 50 mg PO HS [facility] Stop: 10/28/24 20:59 Topiramate (Topiramate 100 Mg Tab) 100 mg PO BID [facility] Stop: 10/28/24 08:59 Last Admin: 09/28/24 08:17 Dose: 100 mg Trazodone HCl (Trazodone Hcl 50 Mg Tab) 50 mg PO HS [facility] Stop: 10/28/24 20:59 ECG Additional Comments: Repeat EKG today shows normal sinus rhythm and is essentially normal
[2024-09-28] MEDS: LORazepam 2 MG/1 ML VIAL IV STA (09:50)
--- NOTE | 2024-09-28 10:22 | Pre Anesthesia Assessment ---
Date of Service September 28, 2024 Pre Sedation Assessment Vital Signs Temp Pulse Pulse Resp BP BP Pulse Ox 09/28/24 08:00 72 09/28/24 07:40 97.9 F 79 18 104/62 98 09/28/24 03:46 98.1 F 83 18 99/59 L 96 09/27/24 23:15 89 09/27/24 23:14 97.7 F 77 16 127/77 98 09/27/24 22:36 71 20 129/69 100 09/27/24 22:03 77 18 133/72 100 09/27/24 21:30 86 20 129/88 100 09/27/24 21:00 73 14 118/77 100 09/27/24 20:48 77 09/27/24 20:30 82 18 85/66 L 99 09/27/24 20:24 81 20 105/66 100 09/27/24 19:36 87 20 109/59 L 99 09/27/24 17:09 74 18 119/70 100 09/27/24 16:54 79 09/27/24 16:39 97.9 F 85 16 141/81 H 97 O2 Del Method 09/28/24 08:00 09/28/24 07:40 Room Air 09/28/24 03:46 Room Air 09/27/24 23:15 09/27/24 23:14 Room Air 09/27/24 22:36 09/27/24 22:03 09/27/24 21:30 09/27/24 21:00 09/27/24 20:48 09/27/24 20:30 09/27/24 20:24 09/27/24 19:36 09/27/24 17:09 09/27/24 16:54 09/27/24 16:39 Room Air Cardiovascular + regular rate Respiratory + respiratory effort normal Pre-Sedation Airway Assessment Smoking Status: Never smoker Hx Sleep Apnea: No Hx Difficult Intubation: No Short, Thick Neck: No Thyromental Distance: < 3.5 Finger Breadths Oral Cavity: + Dental Abnormalities Mallampati Class: III ASA: ASA3 Procedure Planning Contraindications for Sedation: none Current Medications Reviewed: Yes Notes The planned sedation has been discussed with the patient. Informed Consent was obtained. I have identified the patient, determined the appropriateness of sedation and have assessed the patient immediately prior to the procedure. All medicine(s) and interventions are by my order.
[2024-09-28] MEDS: NITROGLYCERIN/D5W 100MCG/ML 20ML SYR ONE (11:49)
[2024-09-28] MEDS: niCARdipine 2,000 MCG/20 ML SYR ONE (11:50)
[2024-09-28] MEDS: MIDAZOLAM HCL 1 MG/ML 2ML VIAL ONE ×2 (11:50→12:20)
[2024-09-28] MEDS: OPTIRAY 350 ONE (11:50)
[2024-09-28] MEDS: fentaNYL citrate PF 100 MCG/2 ML VIAL ONE ×2 (11:52→12:21)
[2024-09-28] MEDS: HEPARIN (PORCINE) 1000 UNIT/ML 10 ML (CATH LAB USE ONLY) ONE (12:20)
[2024-09-28] MEDS: IODIXANOL (VISIPAQUE) 320 MG/ML 100ML IV ONE (12:20)
--- NOTE | 2024-09-28 12:28 | Post Anesthesia Assessment ---
Date of Service September 28, 2024 Post Sedation Assessment Vital Signs Temp Pulse Pulse Resp BP BP Pulse Ox 09/28/24 10:15 82 16 113/64 96 09/28/24 08:00 72 09/28/24 07:40 97.9 F 79 18 104/62 98 09/28/24 03:46 98.1 F 83 18 99/59 L 96 09/27/24 23:15 89 09/27/24 23:14 97.7 F 77 16 127/77 98 09/27/24 22:36 71 20 129/69 100 09/27/24 22:03 77 18 133/72 100 09/27/24 21:30 86 20 129/88 100 09/27/24 21:00 73 14 118/77 100 09/27/24 20:48 77 09/27/24 20:30 82 18 85/66 L 99 09/27/24 20:24 81 20 105/66 100 09/27/24 19:36 87 20 109/59 L 99 09/27/24 17:09 74 18 119/70 100 09/27/24 16:54 79 09/27/24 16:39 97.9 F 85 16 141/81 H 97 O2 Del Method 09/28/24 10:15 Room Air 09/28/24 08:00 09/28/24 07:40 Room Air 09/28/24 03:46 Room Air 09/27/24 23:15 09/27/24 23:14 Room Air 09/27/24 22:36 09/27/24 22:03 09/27/24 21:30 09/27/24 21:00 09/27/24 20:48 09/27/24 20:30 09/27/24 20:24 09/27/24 19:36 09/27/24 17:09 09/27/24 16:54 09/27/24 16:39 Room Air Recovery Score Activity: Moves 4 extremities Respiration: Deep Breath/Cough Circulation: +/-20% PreAnes Value Consciousness: Fully Awake Oxygen Saturation: O2 needed for >90% Discharge Sedation Level of Care: Fast Track Phase II Post Sedation Plan On clinical assessment, the patient appears to have tolerated the sedation without complications. Patient is recovering as anticipated. Patient will continue to be monitored by nursing and may be discharged when sedation discharge criteria are met per below protocol. Upon Completions of procedure up to 15 minutes continue every 5 minute vital signs and the P.A.R. score; then discharge to a Phase I or Fast Track to Phase II per the following guidelines: * Discharge Patient to appropriate Phase II area if PAR is 8 or greater or return to pre- procedure baseline. The post - procedure orders will be as directed. * If PAR score is less than 8 or not return to pre-procedure baseline then patient will follow Phase I monitoring till PAR is reached for Phase II. The Phase I may be done in procedure room or may call to secure a Phase I area. * If naloxone or flumazenil are used for reversal, hold in Phase I for continued monitoring from when last reversal dose was given for a minimum of 60 minutes or longer pending the nurse and/or physician discretion of patient condition before discharge to Phase II. Please call the Sedation Physician to re-evaluate and complete post-note for discharge to Phase II area. Do NOT discharge from procedure sedation or Phase 1 until post- sedation evaluation note is complete by procedure /sedation MD Sedation Discharge Instructions to be given to the patient at discharge to home.
[2024-09-28] MEDS: SODIUM CHLORIDE 0.9% 1,000 ML IV SCH (13:31)
[2024-09-28] MEDS ORDERED: Nursing to Pharmacy Communication SCH ×2 (15:15→19:30)
--- NOTE | 2024-09-28 15:42 | Cardiac Catheterization ---
[facility] Data: Service Or Work Dispatcher Chief Cardiac Status Clinical evaluation leading to the procedure CAD Presenation: Positive Stress Test Anginal Classification: CCS IV Diagnostic Physicians Name: Lawrence Khan MD Closure Device Recommendations: Medical Therapy and/or Counseling Cardiac Cath Procedure Full Procedure Date September 28, 2024 Pre-Procedure Diagnosis Pre-Procedure Diagnosis: Angina and Positive Stress Test AUC Score AUC Score: 7 Post-Procedure Diagnosis Post-Procedure Diagnosis: Normal Coronary Arteries and Normal Intracardiac Pressures Procedure(s) Performed Procedure(s) Performed: Coronary Angiography, Left Heart Cath and Ultrasound Guided Vascular Access Dyed Yarn Operator Lawrence Khan MD Dining Manager(s) Damion Estimated Blood Loss Estimated Blood Loss: 15 Medication(s) Medication(s): Fentanyl, Heparin, Lidocaine 1%, Nicardipine, Nitroglycerin and Versed Summary of Findings Indication: Abnormal stress test, recurrent chest pain Access: Attempted access to right radial artery but unsuccessful due to spasm. Small left radial artery access under ultrasound guidance with placement of slender 5 Fr sheath Catheters: [place], 4 Fr diagnostic JL 3.5 Findings: LM -normal caliber, no significant disease LAD -medium caliber, proximal to mid segment without significant disease. Distal vessel small, tortuous and tapers to apex. Circumflex -medium caliber, angiographically normal, gives off 2 medium obtuse marginals. RCA -dominant, medium caliber, angiographically normal LVEDP - 7 Arterial Closure: TR band Summary: 1. No significant obstructive coronary artery disease 2. Small vasospastic vessels particularly involving distal LAD 3. Normal intracardiac filling pressure Recommendations: Trial of additional therapy for coronary vasospasm per Dr. Harper Continued ASCVD risk factor modification Hemodynamics Rest Ao:: 100/60/94 Final Ao: 129/71/123 LV: 92/7 Recommendations Recommendations: Medical Therapy and/or Counseling Radiation Exposure (mGy) 351 Contrast (mls) 40 Anesthesia Moderate [id number] Procedural Complication(s) None Disposition Service Or Work Dispatcher Chief Holding/Recovery I attest to the content of the Intraoperative Record and any orders documented therein. Any exceptions are noted below. [facility] [place] Card Cath Procedure Codes Cardiac Catheterization Procedure 1: Cardiovascular Cath Procedures: 42051 Coronaries & LHC (+/-LV) & RHC Therapeutic Services & Ancillary Procedure 1: Cardiovascular Tx and Anc Procedures: 07449 Ultrasonic Guidance Vascular Access Moderate Sedation Procedure 1: Sedation/Anesthesia: 25759 Mod Sedation by the same physician;Init15 Min Child Age 5 & Up Procedure 2: Sedation/Anesthesia: 15632 Mod Sedation by the same physician; Ea [id number] Minutes PG Care Time/CCT Total # of Minutes Spent Total Time Spent with Patient: Total time spent is greater than 50% in coordination of care (as documented) at patient's floor/unit and/or counseling patient:
[2024-09-28] MEDS: amLODIPine BESYLATE 5 MG TAB PO SCH (16:55)
[2024-09-28] MEDS: TOPIRAMATE 50 MG TAB PO SCH (20:35)
[2024-09-28] MEDS: traZODone HCL 50 MG TAB PO SCH (20:55)
[2024-09-28] MEDS: MELATONIN 3 MG TAB PO PRN (21:03)
--- NOTE | 2024-09-28 23:03 | Hospitalist Progress Note ---
Date of Service September 28, 2024 Assessment & Plan (1) Chest pain: (2) Unstable angina: Plan Fannie 64 y/o with PMH with hx hypothyroidism, vasovagal syndrome, anemia, DJD, gastroparesis , CKD, hypothyroidism, hyperlipidemia here due to chat pain and heaviness. Patient had a stress cath done recently outpatient that was positive on 08/2024. Patient states insurance didn't approved cardiac cath outpatient. Today she states having chest pain that radiated to her back while walking lightly. She attributes to have bilateral hand numbness #Crescendo Angina / ACS - Patient with known CAD with worsening chest pain and SOB. No pain at rest. Chest pain free on evaluation. - Stress echo- 09/13/2024 Achieved 4.9 METS with 83% of max predicted heart rate. Stress echo positive for new wall motion abnormality involving the anteroseptum and anterior apex at low level of exercise - Hemodynamically stable. - Electrolytes with hyponatremia - Troponin negative on admission - EKG- sinus rhythm, no ST elevation or depressions - Cardiology consulted, aprec recommendations -Cardiac cath completed. Clean coronoaries. 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 - Accidental finding. No symptoms - Recommended follow up outpatient # CKD- baseline 1.30 continue IVF -Given patient had dye for cath and imaging, will keep patient and continue IVF. #Hypothyroidism- Continue Levothyroxine #Hyperlipidemia- On Repatha and Gemfibrozil. Did not tolerate statins #GERD- continue PPT Admission and Anticipated Discharge Date Admission Date: September 27, 2024 Subjective 64 yo female reports no new symptoms. She states pain on the arm around the site of her cath Physical Exam Constitutional: WD/WN, vitals as above Neck: trachea midline, no thyromegaly Respiratory: normal respiratory effort Psychiatric: A+Ox3, euthymic affect Results & Data Results & Data Vital Signs (Past 12 Hours) Vital Signs Temp Pulse Pulse Resp BP BP Pulse Ox 09/28/24 21:44 77 09/28/24 19:49 36.6 C 83 18 134/77 99 09/28/24 17:39 67 09/28/24 17:03 126/73 09/28/24 15:16 36.5 C 76 18 122/76 98 09/28/24 13:34 36.3 C L 73 104/67 97 09/28/24 12:55 74 16 125/58 L 99 09/28/24 12:40 69 16 107/64 95 O2 Del Method 09/28/24 21:44 09/28/24 19:49 Room Air 09/28/24 17:39 09/28/24 17:03 09/28/24 15:16 Room Air 09/28/24 13:34 Room Air 09/28/24 12:55 Room Air 09/28/24 12:40 Room Air PG Care Time/CCT Total # of Minutes Spent Total Time Spent with Patient: Total time spent is greater than 50% in coordination of care (as documented) at patient's floor/unit and/or counseling patient: Coding Level of Care Code 33774 SUB INP/OBS CARE 3/50MIN Diagnoses Chest pain R07.9 Unstable angina I20.0
--- NOTE | 2024-09-29 00:34 | Electrocardiogram Report ---
Test Reason : Blood Pressure : */* mmHG Vent. Rate : 74 BPM Atrial Rate : 74 BPM P-R Int : 144 ms QRS Dur : 72 ms QT Int : 416 ms P-R-T Axes : 58 60 60 degrees QTcB Int : 461 ms Normal sinus rhythm Normal ECG When compared with ECG of 27-Sep-2024 16:39, (unconfirmed) No significant change was found Confirmed by Lawrnece Khan ([id number]) on 09/29/2024 12:34:14 AM Referred By: REFERRED SELF Confirmed By: Lawrence Khan
[2024-09-29] MEDS: KETOROLAC TROMETHAMINE 15 MG/ML VIAL IV ONE (05:54)
[2024-09-29 06:07] LABS: BUN Creatinine Ratio 10.7 (10-20); Calcium 8.2 mg/dl (8.6-10.3); Creatinine Clr Calc Pharmacy 37.5 ml/min
[2024-09-29] MEDS: ACETAMINOPHEN 500 MG TAB PO ONE (06:08)
[2024-09-29 06:13] LABS: ANTI-Xa, UFH(UnfractionatedHep < 0.10 IU/ml (0.3-0.7)
[2024-09-29 08:26] VITALS: RESP 16
--- NOTE | 2024-09-29 09:43 | Cardiology Progress Note ---
Date of Service September 29, 2024 Assessment & Plan (1) Coronary vasospasm: Plan: Possible related to her reaction during the catheterization. Add calcium channel hector consider addition of nitrates if needed (2) Abnormal stress echo: Plan: It is possible that the etiology of her stress test is related to coronary vasospasm. (3) Diabetes: (4) Gastroparesis: (5) Hypercholesterolemia: Plan: She is being started on Leqvio in the next few weeks for her hypercholesterolemia. Although she does not have significant coronary disease, she does have significant aortic atheroma noted on her CAT scan and this is a reason to treat her lipids. (6) Renal insufficiency: Plan: Her renal function has improved since receiving IV fluids overnight. It was down to 1.1 Plan She follow-up with Aggie Herron in the office in 1 to 2 weeks to reassess symptoms on calcium channel hector. We can also add as needed sublingual nitrates as well. I have asked her to keep in mind that her symptoms could be cardiac related to vasospasm but they could also be GI related to esophageal and stomach issues. Admission and Anticipated Discharge Date Admission Date: September 27, 2024 Tana Rees was seen today with her prior to her being to discharge to home. I reviewed the catheterization with her. As you know she had significant vasospasm of her radial artery when Dr. Khan attempted to insert her sheath. She was able to be cath through the left radial artery but were concerned that some of her symptoms could possibly related to coronary vasospasm. I discussed this with her as well as the patient and were starting her on a low-dose of amlodipine 2.5 mg daily. I also reviewed with her that this medication may also be helpful in the event that her symptoms are GI related. Sometimes calcium channel blockers can also be helpful with esophageal spasm. We could also add sublingual nitroglycerin in the future for symptoms which would not only treat chest pain symptoms from vasospasm but could also treat esophageal spasm as well. I did ask that she keep her follow-up appointment for the nuclear gastric emptying study that she has scheduled later this week The remainder of her catheterization however does not show significant obstructive disease however Review of Systems Review of Systems: All systems reviewed & are unremarkable except as noted in HPI & below Physical Exam Physical Exam: No change. Both radial pulses are intact Results & Data Vital Signs (Past 12 Hours) Vital Signs Temp Pulse Pulse Resp BP Pulse Ox O2 Del Method 09/29/24 08:00 78 09/29/24 07:21 36.7 C 69 16 101/63 97 Room Air 09/29/24 05:30 106/54 L 09/29/24 03:30 36.5 C 66 18 83/47 L 98 Room Air 09/28/24 23:20 36.8 C 73 18 99/62 L 97 Room Air 09/28/24 21:44 77 Laboratory Results Abnormal lab results 09/28/24 09/28/24 09/29/24 Range/Units 16:29 20:38 05:30 Heparin Anti-Xa, Unfract < 0.10 L (0.3-0.7) IU/ml Chloride 116 H (98-107) mmol/L Carbon Dioxide 18 L (21-32) mmol/L Creatinine 1.22 H D (0.6-1.2) mg/dl POC Glucose 103 H 171 H (70-99) mg/dl Calcium 8.2 L (8.6-10.3) mg/dl 09/29/24 Range/Units 07:20 Heparin Anti-Xa, Unfract (0.3-0.7) IU/ml Chloride (98-107) mmol/L Carbon Dioxide (21-32) mmol/L Creatinine (0.6-1.2) mg/dl POC Glucose 114 H (70-99) mg/dl Calcium (8.6-10.3) mg/dl
[2024-09-29 11:24] VITALS: PULSE 70; TEMP 98.2; O2SAT 98
[2024-09-29 12:02] VITALS: BP 122/76
--- NOTE | 2024-09-29 12:09 | Discharge Summary ---
Discharge Summary Date of Service September 29, 2024 Principal Dx & Hospital Course #1 = Principal Diagnosis (1) Chest pain: (2) Unstable angina: Plan Fannie 64 y/o with PMH with hx hypothyroidism, vasovagal syndrome, anemia, DJD, gastroparesis , CKD, hypothyroidism, hyperlipidemia here due to chat pain and heaviness. Patient had a stress cath done recently outpatient that was positive on 08/2024. Patient states insurance didn't approved cardiac cath outpatient. Today she states having chest pain that radiated to her back while walking lightly. She attributes to have bilateral hand numbness #Crescendo Angina / ACS - Patient with known CAD with worsening chest pain and SOB. No pain at rest. Chest pain free on evaluation. - Stress echo- 09/13/2024 Achieved 4.9 METS with 83% of max predicted heart rate. Stress echo positive for new wall motion abnormality involving the anteroseptum and anterior apex at low level of exercise - Hemodynamically stable. - Electrolytes with hyponatremia - Troponin negative on admission - EKG- sinus rhythm, no ST elevation or depressions - Cardiology consulted, aprec recommendations -Cardiac cath completed. Clean coronoaries. - Continue Aspirin 81 mg - Currently on PCSK9 inhibitor *Acute kidney failure Creatinine elevated to 1.49-1.57. S/P IV contrast CT scan. 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 - Accidental finding. No symptoms - Recommended follow up outpatient # CKD- baseline 1.30 continue IVF -Given patient had dye for cath and imaging, will keep patient and continue IVF. #Hypothyroidism- Continue Levothyroxine #Hyperlipidemia- On Repatha and Gemfibrozil. Did not tolerate statins #GERD- continue PPT Admission HPI Per Admitting Provider Fannie 64 y/o with PMH with hx hypothyroidism, vasovagal syndrome, anemia, DJD, gastroparesis , CKD, hypothyroidism, hyperlipidemia here due to chat pain and heaviness. She states having chest pain in the past with heavy walking when she is walking her dogs. Recently she had a Stress echo that was positive. States her curbing stonecutter wanted her to have a cath performed but insurance didn't approv ed it. Today she states having chest pain that radiated to her back while walking. On evaluation patient was pain free, denied any SOB or palpitations. Denied any fevers, chills, or abdominal pain. No nausea, vomiting or diarrhea. Ed course- patient placed on heparin drip as per cardiology recommendations. CTA negative for PE. Discharge Exam Constitutional WD/WN, vitals as above Neck trachea midline, no thyromegaly Respiratory normal respiratory effort Psychiatric A+Ox3, euthymic affect Discharge Plan Discharge Items Patient Disposition: Home - Self-Care Reason For Visit: UNSTABLE ANGINA Discharge Diagnosis: unstable angina Condition on Discharge: Fair Activity: Resume your previous activity Non-emergency contact: Primary Care Provider Call non-emergency contact if: you have any medication questions Follow-up/Referrals: Madison Barry, [Primary Care Provider] - (Please call to schedule follow up) Diet: Heart Healthy Addtl Attending Provider Instructions: You were evaluated for chest pain (angina). Thankfully your cardiac cath was negative. We will place you on calcium channel blockers to treat possible vasospasm of your coronary arteries vs esophagus. Pending Studies at Discharge: No Stand-Alone Forms: My [employer], Smoking Cessation Medications and DC Order Prescriptions: New amlodipine [Norvasc] 5 mg Tablet 2.5 mg PO DAILY Qty: 30 0RF nitroglycerin [Nitrostat] 0.4 mg Tablet, Sublingual 0.4 mg sublingual Q5M PRN (Reason: chest pain) Qty: 7 0RF Rx Instructions: repeat every 5 minutes if angina persists; may administer up to 3 tablets in a 15-minute period aspirin 81 mg Tablet,Delayed Release (Dr/Ec) 81 mg PO QAM Qty: 30 0RF Continued bupropion HCl [Wellbutrin XL] 150 mg tablet extended release 24 hr 150 mg PO QAM 30 Days Qty: 30 2RF buspirone 15 mg tablet 15 mg PO BID Qty: 180 2RF midodrine 5 mg tablet 5 mg PO TID PRN (Reason: Prior to sedation) topiramate 100 mg tablet 100 mg PO BID 90 Days Qty: 180 3RF gemfibrozil [Lopid] 600 mg tablet 600 mg PO BID trazodone 50 mg tablet 50 mg PO HS Hold Instructions: Home Medication placed on hold at Doctor's office topiramate 50 mg tablet 50 mg PO HS metformin 500 mg Tablet 500 mg PO BID cyanocobalamin (vitamin B-12) [Vitamin B-12] 1,000 mcg Tablet 1,000 mcg PO Q2D levothyroxine 88 mcg tablet 88 mcg PO DAILYBB pantoprazole 40 mg tablet,delayed release (DR/EC) 40 mg PO QAM Repatha SureClick 140 mg/mL pen injector 140 mg SUBCUT .EVERY 2 WEEKS folic acid 400 mcg Tablet 0.4 mg PO QAM Leqvio 284 mg/1.5 mL Syringe 0 mg SUBCUT .EVERY 6 MONTHS Rx Instructions: hasnt started yet Discharge Orders: Discharge Order (Routine); Ordered 09/29/24 Ordered By: Arthur Cardona/Other Patient Handouts: Having Cardiac Catheterization, Cardiac Catheterization Dc Admission Data Admit Date/Time: 09/27/24 22:00 Attending Provider: Arthur Contreras Admit Provider: Chino Ness Primary Care Provider: Madison Barry Other Providers: Chino Ness; Polly Harper Other Interventions: Discharge Summary Assessment (RN) Last Done: 09/29/24 12:00 Hospital Stay Data Consultations 09/27/24 21:31 ED Decision to Admit Stat 09/27/24 23:02 Consult Cardiology Routine Procedures Performed Operation Date: 09/28/24 12:00 Actual Procedures p Cineradiography w/Routine Exam - Lawrence Khan MD p Cath, Left with Cors and Vent - Lawrence Khan MD Diagnostic Imagining Performed 09/27/24 17:44 CT angio abd pelvis wo/w con Stat CT angio chest dissec wo/w con Stat CT head/brain wo con Stat 09/28/24 11:06 CL Cath Imgs for PACS use only Stat Pending Results Patient Have Any Pending Studies at Discharge: No Discharge Instructions Given to Patient (Per Discharging Provider) You were evaluated for chest pain (angina). Thankfully your cardiac cath was negative. We will place you on calcium channel blockers to treat possible vasospasm of your coronary arteries vs esophagus. Coding Diagnoses Chest pain R07.9 Unstable angina I20.0
--- NOTE | 2024-09-30 08:44 | Electrocardiogram Report ---
Test Reason : Blood Pressure : */* mmHG Vent. Rate : 78 BPM Atrial Rate : 78 BPM P-R Int : 122 ms QRS Dur : 76 ms QT Int : 396 ms P-R-T Axes : 21 51 65 degrees QTcB Int : 451 ms Normal sinus rhythm Normal ECG When compared with ECG of 12-Jun-2024 10:26, No significant change was found Confirmed by Polly Harper (Lidya) on 09/30/2024 8:44:34 AM Referred By: REFERRED SELF Confirmed By: Polly Harper
--- NOTE | 2024-09-30 09:17 | Electrocardiogram Report ---
Test Reason : Blood Pressure : */* mmHG Vent. Rate : 75 BPM Atrial Rate : 75 BPM P-R Int : 124 ms QRS Dur : 74 ms QT Int : 416 ms P-R-T Axes : 2 45 39 degrees QTcB Int : 464 ms Normal sinus rhythm Low voltage QRS Borderline ECG When compared with ECG of 28-Sep-2024 05:00, No significant change was found Confirmed by Polly Harper (Lidya) on 09/30/2024 9:17:03 AM Referred By: REFERRED SELF Confirmed By: Polly Harper
== END 2024-09-29 13:21 | disposition home or self-care (01) | DRG 287 ==
LOC: ED 16:32 → SUATTDRO 22:00 → 2S 22:00

== ENCOUNTER 2025-02-13 11:04 | Observation (INO) ==
--- NOTE | 2025-02-13 11:22 | Emergency Department Note ---
Impression & Plan Dizziness, Chest pain, Imbalance ED Provider Note NAME: JERRICA ALLISON AGE: 64 SEX: F : 1960 ARRIVES VIA: Walk-In INFORMANT: Patient ED PROVIDER(S): Kushal Hope MD CHIEF COMPLAINT: Dizziness, imbalance, referred PLAN: Disposition: Admit MEDICAL DECISION MAKING: The patient is a pleasant 64-year-old woman with a past medical history of CVA, hypertension, hyperlipidemia, hypothyroidism, GERD who presents to the emergency department via walk-in referred by her PCP office for CT imaging in the setting of having continued unsteadiness since her stroke in October. She reports that several days ago she was walking and felt unsteady that she almost fell but did not. Patient reports she was unsteady before stroke in October but this worsened thereafter. She reports that she also has had memory issues and so presumes this is why she was sent the emergency department for emergent imaging given her symptoms have been chronic since her stroke. Patient reports her memory issues and imbalance are not so bad when she cannot drive. On evaluation patient is no distress, afebrile with stable vital signs. She appears clinically dry. She exhibits no focal neurologic deficits. She is able to hold her left leg for 10 seconds but reports this is her weaker leg since her stroke and cannot hold it up as long as her right. EKG without overt acute ischemia. CXR negative for acute cardiopulmonary process per my personal preliminary review/interpretation. WBC and platelets within normal limits. H/H similar to prior values. Chemistry without metabolic acidosis. Creatinine 1.57, similar to prior range values in setting of CKD. Electrolytes unremarkable. LFTs unremarkable. High- sensitivity troponin 2.7, within normal limits. Lipase normal TSH within limits. CT of the head CTA of the head and neck were performed and were negative for ICH, ischemia or severe narrowing occlusion of large vessels. Of note, following CT the patient had reported acute chest pain and so repeat EKG was obtained and was unremarkable. For further assessment while the patient was still in the CT scanner a CT of the chest without additional contrast was obtained. This was negative for acute aortic pathology or acute process otherwise. Incidental left axillary lymph node is described. Given the patient's history and risk factors she does agree with plan for admission for further evaluation of her dizziness/imbalance as well as for chest pain. Case was discussed with Dr. Woods, [facility] [place], who will evaluate the patient for admission. Further management per admitting team. Triage Nursing notes reviewed and agree them. Prior/external medical records reviewed Vital Signs: reviewed Differential diagnosis: Infection, dehydration, metabolic abnormality, hypo/hyperglycemia, electrolyte disturbance, anemia, hypoxia, cardiac sources, intracerebral event, toxicologic, neurologic, as well as other pathologies. ER treatment provided: See below. Diagnostics interpreted by me: ECG 1122: Normal sinus rhythm, 84 bpm, no ectopy, no overt ST elevation or depression, QTc 427, QRS 76. ECG 1250: Normal sinus rhythm, 92 bpm, no ectopy, no overt ST elevation or depression, QTc 455, QRS 76 Cardiac Monitoring: An order for continuous cardiac monitoring was placed and demonstrated normal sinus rhythm, 84 bpm, no ectopy. Laboratory studies: See below Imaging studies: See below Consultation(s): Dr. Woods [facility] hospitalist HPI: Per MDM. ROS: See above HPI for pertinent positives & negatives. A total of 10 systems reviewed and were otherwise negative. VITALS:See Below PHYSICAL EXAMINATION: GENERAL: Awake, alert, well-appearing, in no distress HENT: Normocephalic, atraumatic. Oropharynx with dry mucous membranes and otherwise unremarkable. EYES: Normal conjunctiva. Sclera non-icteric. EOMI. No nystamgus. PEARRL. NECK: Supple. No nuchal rigidity. FROM. No JVD. RESPIRATORY: Clear to auscultation. CARDIAC: Regular rate, normal rhythm. Extremities warm and well perfused. Pulses equal. ABDOMEN: Soft, non-distended. No tenderness to palpation. No rebound or guarding. No masses. MUSCULOSKELETAL: Chest examination reveals no tenderness. The back is symmetrical on inspection without obvious abnormality. There is no CVA tenderness to palpation. No joint edema. LOWER EXTREMITIES: Calves are equal size bilaterally and non-tender. No edema. No discoloration. NEURO: Cranial nerves II-XII grossly intact. 5/5 strength and SILT x 4 extremities. Cerebellar function intact including [id number]-he-[id number], alternating palms. SKIN: No rash or jaundice noted. Kushal Hope MD Past Med/Surg History Problem List Imbalance (Acute) Chest pain (Acute) Dizziness (Acute) Fall H/O: stroke with residual effects Stroke Coronary vasospasm Anemia Renal insufficiency Hypercholesterolemia Diabetes Abnormal stress echo Unstable angina Generalized weakness (Acute) Chest pain (Acute) Overactive bladder Flank pain Abnormal urine odor AMS (altered mental status) (Acute) Idiosyncratic reaction to medication after proper dose Gastroparesis reports constant nausea Migraines Osteopenia Pseudogout of hand Interstitial cystitis Impaired fasting blood sugar Memory loss Cognitive and behavioral changes Gastroparesis Secondary osteoarthritis, right shoulder Balance problem Fatty liver Depression with anxiety (Acute) Degenerative arthritis of right shoulder region Hyperlipidemia Medical History Chronic nausea Stroke-like symptoms Kidney disease, chronic, stage III (moderate, EGFR 30-59 ml/min) Diabetes mellitus, type 2 Hypothyroidism, postablative History of trigger finger (09/05/23) left trigger finger release 09/05/23, [facility] Hypothyroidism Chronic idiopathic constipation Cervical stenosis of spine following with Dr Richmond Camp 08/25/23 Hx of peptic ulcer Hx of peptic ulcer [id number] Hearing loss 33% Bilateral H/A Hx of papillary thyroid carcinoma status post completion thyroidectomy 08/2020 Ovarian cyst Left simple ovarian cyst ultrasound 03/2021 by [facility] Hiatal hernia Claustrophobia MVP (mitral valve prolapse) Reported per patient Not noted per 07/28/20 echo Fibromyalgia GERD (gastroesophageal reflux disease) Controlled Surgical History Status post right shoulder hemiarthroplasty Status post reverse total shoulder replacement right shoulder S/P foot surgery, left S/P foot surgery, right multiple History of laparoscopic appendectomy (06/19/22) Laparoscopic Appendectomy, laparoscopic lysis of adhesion Status post complete thyroidectomy (~08/2020) History of foot surgery R/L great toe surgeries Right foot bunionectomy and MTP arthroplasty (03/31/18): LMA#4 at [facility] Left foot great toe Arthrosurface hemiarthroplasty (04/03/21): LMA#4, attempt x1, atraumatic at [facility]. No issues noted per post-op anesthesia progress note. History of liver biopsy History of esophagogastroduodenoscopy (EGD) Hx of cholecystectomy History of partial hysterectomy TLH, ovaries retained Hx of section X3 Hx of carpal tunnel repair R/L Hx of thumb surgery R/L "joint removed" Hx of total knee replacement R/L Hx of elbow surgery R/L Hx of arthroscopy of shoulder right x2, left x1: resurfacing 04/15/20: Grade 1 view, MAC 3, ETT 7.0 + PNB. History of herniorrhaphy right inguinal repair History of colonoscopy History of tonsillectomy Family History Father Diabetes Myocardial infarction ? 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: No Beliefs That Will Affect Care: None marital status: Current Living Situation: Spouse current occupational status: disabled How many Children do You have: 3 Other Information That Helps Us Care for You: No Feels Safe at Home: Yes Safety Concerns: Feels Safe At This Time Childhood Exposure to Second-Hand Smoke: No Diet: regular caffeine: No Dental Care, Regularly: Yes Seatbelt Use: never Assistive Devices: Denture - Upper, Denture - Lower, Hearing Aid - Bilateral and Walker Allergies Allergies Allergy/AdvReac Type Severity Reaction Status Date / Time Penicillins Allergy Intermediate Hives Verified 02/13/25 14:21 vancomycin Allergy Intermediate Rash Verified 02/13/25 14:21 tramadol Allergy Mild Rash Verified 02/13/25 14:21 acetaminophen [From [place]] Allergy Unknown Unknown Unverified 02/13/25 14:21 hydrocodone [From [place]] Allergy Unknown Unknown Unverified 02/13/25 14:21 diphenhydramine Allergy Itching Verified 02/13/25 14:21 [From Benadryl] fluvastatin Allergy "Itchy all Verified 02/13/25 14:21 over" rosuvastatin Allergy "Itchy all Verified 02/13/25 14:21 over" tizanidine [From Zanaflex] AdvReac Severe Hallucinati Verified 02/13/25 14:21 ons metoclopramide [From Reglan] AdvReac Intermediate Constipatio Verified 02/13/25 14:21 n morphine AdvReac Intermediate N/V Verified 02/13/25 14:21 Home Meds Home Medications Medication Instructions Recorded Confirmed trazodone 50 mg tablet 50 mg PO HS sleep 11/17/22 02/13/25 gemfibrozil 600 mg tablet (Lopid) 600 mg PO BID 05/04/23 02/13/25 metformin 500 mg tablet 500 mg PO BID 08/18/23 02/13/25 inclisiran 284 mg/1.5 mL 284 mg subcut DIRECTED 09/27/24 02/13/25 subcutaneous syringe (Leqvio) pantoprazole 40 mg tablet,delayed 40 mg PO BID 09/27/24 02/13/25 release buspirone 15 mg tablet 15 mg PO TID 10/27/24 02/13/25 famotidine 40 mg tablet 40 mg PO BID 10/27/24 02/13/25 lifitegrast 5 % eye drops in a 1 drp OPB BID PRN Dry Eyes 10/27/24 02/13/25 dropperette (Xiidra) promethazine 12.5 mg tablet 12.5 mg PO Q6H PRN Nausea And 10/27/24 02/13/25 Vomiting ranolazine 500 mg tablet,extended 500 mg PO BID 10/27/24 02/13/25 release,12 hr cyanocobalamin (vitamin B-12) 1,000 mcg PO DAILY 01/17/25 02/13/25 1,000 mcg tablet (Vitamin B-12) levothyroxine 100 mcg tablet 100 mcg PO DAILY 01/17/25 02/13/25 docusate sodium 100 mg capsule 100 mg PO BID 02/13/25 02/13/25 (Colace) Previous Rx's Medication Instructions Recorded bupropion HCl 150 mg 24 hr tablet, 150 mg PO QAM 30 days #30 tabs 11/29/22 extended release (Wellbutrin XL) aspirin 81 mg tablet,delayed 81 mg PO QAM #30 tabs 09/29/24 release cuzilbntdu-bujzkwjhstkpe-adpgephj 1 cap PO TID PRN pain #3 caps 10/29/24 50 mg-300 mg-40 mg capsule (Fioricet) rimegepant 75 mg disintegrating 75 mg PO DIRECTED PRN Migraine 01/17/25 tablet (Nurtec ODT) Headache #8 tabs topiramate 100 mg tablet 100 mg PO BID 90 days #180 tabs 01/17/25 Results & Data (ED) Vital Signs Vital Signs - 24 hr 02/13/25 11:06 02/13/25 11:16 02/13/25 13:09 Temperature 36.5 C Temperature Source Temporal Artery Scan Pulse Rate 98 H 83 Pulse Rate [Left Apical] 81 Pulse Rate from SpO2 Sensor Respiratory Rate 17 21 Respiratory Effort / Characteristics Non-Labored Spontaneous Non-Labored Spontaneous Respiratory Depth Normal Normal Respiratory Pattern Regular Blood Pressure 116/73 Blood Pressure [Left Arm] 125/65 Blood Pressure Mean 87 Blood Pressure Mean [Left Arm] 85 Blood Pressure Position Sitting Pulse Oximetry 100 99 100 Oxygen Delivery Method Room Air Room Air Room Air Sepsis Recent Fever Within 48 Hours No Sepsis New/Unexplained Change in Mental Status No Sepsis Action Taken by Nursing No Action Required 02/13/25 13:24 02/13/25 14:00 02/13/25 14:30 Temperature Temperature Source Pulse Rate 95 H 98 H 80 Pulse Rate [Left Apical] Pulse Rate from SpO2 Sensor 91 H 81 Respiratory Rate 19 22 Respiratory Effort / Characteristics Respiratory Depth Respiratory Pattern Blood Pressure 127/73 Blood Pressure [Left Arm] Blood Pressure Mean 91 Blood Pressure Mean [Left Arm] Blood Pressure Position Pulse Oximetry 98 97 Oxygen Delivery Method Room Air Room Air Sepsis Recent Fever Within 48 Hours Sepsis New/Unexplained Change in Mental Status Sepsis Action Taken by Nursing Laboratory Data Attestation: I reviewed the patient's lab results. 02/13/25 11:30 02/13/25 11:30 Lab Results 02/13/25 02/13/25 02/13/25 Range/Units 11:30 11:38 13:35 WBC 8.61 (4.8-10.8) K/ul RBC 3.35 L (4.20-5.40) M/uL Hgb 10.9 L (12.0-16.0) g/dl POC Hgb 10.9 L (12.0-16.0) g/dl Hct 32.1 L (37.0-47.0) % POC Hct 32 L (37-47) % MCV 95.8 (80.0-100.0) fL MCH 32.5 (25.0-34.0) pg MCHC 34.0 (32.0-36.0) g/dL RDW Std Deviation 41.3 (36.4-46.3) fL RDW Coeff of Marilyn 11.9 (11.5-14.5) % Plt Count 315 (130-400) K/uL MPV 9.8 (9.4-12.4) fL Immature Gran % (Auto) 0.5 % Neut % (Auto) 77.8 % Lymph % (Auto) 11.6 % [place] % (Auto) 6.5 % Eos % (Auto) 3.1 % Baso % (Auto) 0.5 % Neut # (Auto) 6.70 H (1.40-6.50) K/uL Lymph # (Auto) 1.00 L (1.20-3.40) K/uL [place] # (Auto) 0.56 (0.11-0.59) K/uL Eos # (Auto) 0.27 (0.00-0.50) K/uL Baso # (Auto) 0.04 (0.00-0.20) K/uL Immature Gran # (Auto) 0.04 (0.01-0.20) K/uL POC Sodium 140 (135-144) mmol/L Sodium 138 (136-145) mmol/L POC Potassium 3.7 (3.3-5.0) mmol/L Potassium 3.6 (3.5-5.1) mmol/L POC Chloride 109 (101-112) mmol/L Chloride 107 (98-107) mmol/L Carbon Dioxide 22 (21-32) mmol/L POC Total CO2 20 L (24-31) mmol/L Anion Gap 9 (3-11) POC Anion Gap 15.0 L (16-25) mmol/L POC BUN 14 (7-18) mg/dl BUN 15 (6-23) mg/dl Creatinine 1.57 H (0.6-1.2) mg/dl POC Creatinine 1.7 H (0.6-1.3) mg/dl Est Cr Clr Drug Dosing 29.2 ml/min eGFR 36.16 BUN/Creatinine Ratio 9.6 L (10-20) Glucose 110 H (70-99(Fasting)) mg/dl POC Glucose (other) 111 H (70-99) mg/dl Calcium 9.1 (8.6-10.3) mg/dl POC Ioniz Calcium Leonard 1.22 (1.12-1.32) mmol/l Phosphorus 4.0 (2.5-4.9) mg/dl Magnesium 2.0 (1.7-2.4) mg/dl Total Bilirubin 0.3 (0.2-1.0) mg/dl AST 14 (13-39) U/L ALT 7 (7-52) U/L Alkaline Phosphatase 59 (34-104) U/L Troponin I High Sens 2.7 (0-14) pg/ml Total Protein 7.5 (6.0-8.3) gm/dl Albumin 4.4 (3.4-5.0) gm/dl Globulin 3.1 (2.5-4.0) gm/dl Albumin/Globulin Ratio 1.4 (0.9-2) Lipase 71 (11-82) U/L TSH 0.378 (0.300-4.500) uIu/ml Urine Color Yellow Urine Appearance Turbid A (Clear) Urine pH 7.0 (4.5-7.5) Ur Specific Bruno 1.017 (1.000-1.030) Urine Protein Negative (Negative) Urine Glucose (UA) Negative (Negative) Urine Ketones Negative (Negative) Urine Blood 1+ H (Negative) Urine Nitrite Negative (Negative) Urine Bilirubin Negative (Negative) Urine Urobilinogen Negative (Negative) Ur Leukocyte Esterase 3+ H (Negative) Urine WBC (Auto) >50 H (0-5) /hpf Urine RBC (Auto) 0-2 (0-2) /hpf U Hyaline Cast (Auto) 0-2 (0-2) /lpf U Epithel Cells (Auto) 0-2 (0-2) /hpf Urine Bacteria (Auto) 4+ H (None Seen) Urine Comment Administered Medications Buspirone HCl (Buspirone 15 Mg Tab) 15 mg PO TID FREDDIE Stop: 03/15/25 20:59 Last Admin: 02/13/25 20:32 Dose: 15 mg Documented By: DTT Docusate Sodium (Docusate Sodium 100 Mg Cap) 100 mg PO BID FREDDIE Stop: 03/15/25 20:59 Last Admin: 02/13/25 20:35 Dose: 100 mg Documented By: DTT Famotidine (Famotidine 40 Mg Tablet) 40 mg PO BID FREDDIE Stop: 03/15/25 20:59 Last Admin: 02/13/25 20:33 Dose: 40 mg Documented By: DTT Gemfibrozil (Gemfibrozil 600 Mg Tab) 600 mg PO BID FREDDIE Stop: 03/15/25 20:59 Last Admin: 02/13/25 20:33 Dose: 600 mg Documented By: DTT Heparin Sodium (Porcine) (Heparin Sod 5,000 Unit/0.5 Ml Vial) 5,000 units SQ Q12 FREDDIE Stop: 03/15/25 20:59 Last Admin: 02/13/25 20:32 Dose: 5,000 units Documented By: DTT Lactated Ringer's (Lr) 1,000 mls @ 80 mls/hr IV .[id number] FREDDIE Stop: 02/16/25 16:59 Last Admin: 02/13/25 17:17 Dose: 80 mls/hr Documented By: DTT Lorazepam (Lorazepam 2 Mg/1 Ml Vial) 1 mg IV ONE PRN PRN Reason: MRI sedation Stop: 03/15/25 17:37 Last Admin: 02/13/25 19:33 Dose: 1 mg Documented By: DTT Metformin HCl (Metformin Hcl 500 Mg Tab) 500 mg PO BIDM FREDDIE Stop: 03/15/25 16:59 Last Admin: 02/13/25 17:17 Dose: 500 mg Documented By: DTT Pantoprazole Sodium (Pantoprazole 40 Mg Tab) 40 mg PO BID FREDDIE Stop: 03/15/25 20:59 Last Admin: 02/13/25 20:33 Dose: 40 mg Documented By: DTT Ranolazine (Ranolazine 500 Mg Er Tab) 500 mg PO BID FREDDIE Stop: 03/15/25 20:59 Last Admin: 02/13/25 20:32 Dose: 500 mg Documented By: DTT Topiramate (Topiramate 100 Mg Tab) 100 mg PO BID RFEDDIE Stop: 03/15/25 20:59 Last Admin: 02/13/25 20:32 Dose: 100 mg Documented By: DTT Trazodone HCl (Trazodone Hcl 50 Mg Tab) 50 mg PO HS FREDDIE Stop: 03/15/25 20:59 Last Admin: 02/13/25 20:35 Dose: 50 mg Documented By: DTT Discontinued Medications Sodium Chloride (Nss) 500 mls @ 999 mls/hr IV .Q31M ONE Stop: 02/13/25 12:02 Last Infusion: 02/13/25 12:08 Dose: Infused Documented By: Admin: 02/13/25 11:36 Dose: 999 mls/hr Documented By: MIAH Sodium Chloride (Nss) 500 mls @ 999 mls/hr IV .Q31M ONE Stop: 02/13/25 12:23 Last Infusion: 02/13/25 13:56 Dose: Infused Documented By: Admin: 02/13/25 13:10 Dose: 999 mls/hr Documented By: MIRIAN Ioversol (Optiray 320 125ml) 118 ml IV ONCE ONE Stop: 02/13/25 12:03 Last Admin: 02/13/25 12:03 Dose: 118 ml Documented By: NAVA Imaging Data Radiologist's Impression: Chest X-Ray 02/13/25 11:16 SINGLE VIEW CHEST CLINICAL HISTORY: Dizziness FINDINGS: An AP, portable, upright chest radiograph is compared to study dated 10/27/2024 and correlated with chest CT dated 09/27/2024. The cardiomediastinal silhouette is unremarkable. The lungs and pleural spaces are clear. No pneumothorax is seen. The skeletal structures are osteopenic. The bony thorax is grossly intact. An intrathecal lead projects over the thoracic spine. A right shoulder arthroplasty is in place. Cholecystectomy clips are noted in the right upper quadrant. IMPRESSION: No active disease in the chest. ACT 112: Negative or not required by law. Electronically signed by: Flavio Arriola M.D. 02/13/2025 11:[address] 02/13/25 11:[address] OF THE BRAIN; CT ANGIOGRAM OF THE BRAIN CLINICAL HISTORY: Dizziness. COMPARISON STUDY: CT angiogram of the brain dated 10/28/2024. TECHNIQUE: Unenhanced axial CT scan of the brain is performed. Subsequently, following the IV administration of 118 cc of Optiray 320, CT angiogram of the brain was performed from the skull base to the vertex. Images are reviewed in the axial, sagittal, and coronal planes. 3-D MIPS images are created and assessed. IV contrast was administered without complication. A dose lowering technique was utilized adhering to the principles of ALARA. CT DOSE: 1120.94 mGy.cm FINDINGS: Brain parenchyma: The brain parenchyma is normal in appearance. There is no hemorrhage, mass effect, or evidence of acute territorial ischemia by CT criteria. There is no evidence of enhancing mass lesion on the angiogram phase images. No extra-axial fluid collection is seen. Moralez-white matter differentiation is preserved. Ventricles, sulci, and cisterns: Normal in configuration. CT angiogram of the brain: There is mild atherosclerotic calcification of the cavernous carotid and vertebral arteries. The internal carotid arteries at the skull base are patent, as are the anterior and middle cerebral arteries. The vertebrobasilar system and posterior cerebral arteries are patent. The vertebral arteries are codominant. There is no aneurysm, high-grade stenosis, or focal vessel cutoff identified throughout the intracranial circulation. Dural sinuses: Clear as visualized. Orbits: The bony orbits are intact. The orbital contents are normal as visualized. Sinuses and mastoids: The paranasal sinuses are clear. The mastoid air cells are well pneumatized. Calvarium: Unremarkable. IMPRESSION: 1. No acute intracranial abnormality. 2. Unremarkable CT angiogram of the brain. ACT 112: Negative or not required by law. Electronically signed by: Flavio Arriola M.D. 02/13/2025 1:07 PM Head CTA 02/13/25 11:[address] OF THE BRAIN; CT ANGIOGRAM OF THE BRAIN CLINICAL HISTORY: Dizziness. COMPARISON STUDY: CT angiogram of the brain dated 10/28/2024. TECHNIQUE: Unenhanced axial CT scan of the brain is performed. Subsequently, following the IV administration of 118 cc of Optiray 320, CT angiogram of the brain was performed from the skull base to the vertex. Images are reviewed in the axial, sagittal, and coronal planes. 3-D MIPS images are created and assessed. IV contrast was administered without complication. A dose lowering technique was utilized adhering to the principles of ALARA. CT DOSE: 1120.94 mGy.cm FINDINGS: Brain parenchyma: The brain parenchyma is normal in appearance. There is no hemorrhage, mass effect, or evidence of acute territorial ischemia by CT criteria. There is no evidence of enhancing mass lesion on the angiogram phase images. No extra-axial fluid collection is seen. Moralez-white matter differentiation is preserved. Ventricles, sulci, and cisterns: Normal in configuration. CT angiogram of the brain: There is mild atherosclerotic calcification of the cavernous carotid and vertebral arteries. The internal carotid arteries at the skull base are patent, as are the anterior and middle cerebral arteries. The vertebrobasilar system and posterior cerebral arteries are patent. The vertebral arteries are codominant. There is no aneurysm, high-grade stenosis, or focal vessel cutoff identified throughout the intracranial circulation. Dural sinuses: Clear as visualized. Orbits: The bony orbits are intact. The orbital contents are normal as visualized. Sinuses and mastoids: The paranasal sinuses are clear. The mastoid air cells are well pneumatized. Calvarium: Unremarkable. IMPRESSION: 1. No acute intracranial abnormality. 2. Unremarkable CT angiogram of the brain. ACT 112: Negative or not required by law. Electronically signed by: Flavio Arriola M.D. 02/13/2025 1:07 PM Neck CTA 02/13/25 11:17 CT ANGIOGRAPHY OF THE NECK WITH CONTRAST CLINICAL HISTORY: Dizziness. COMPARISON STUDY: CTA of the neck October 28, 2024. Technique: CT angiography of the carotid and vertebral arteries was obtained using Optiray and 3D reconstruction on an independent workstation. NASCET criteria was utilized. Automated exposure control was utilized for the study. A dose lowering technique was utilized adhering to the principles of ALARA. Findings: Please note that the chest CT will be reported separately. No cervical spine fractures are present. There is no cervical lymphadenopathy. The bilateral common carotid, cervical internal carotid and vertebral arteries are patent. There is no stenosis, dissection or aneurysm within the major vasculature of the neck. IMPRESSION: No stenosis or dissection within the bilateral common carotid, cervical internal carotid or vertebral arteries. ACT 112: Negative or not required by law. Electronically signed by: Adi Momin M.D. 02/13/2025 1:[address] 02/13/25 12:51 CT chest diagnostic wo con CT DOSE: 213.87 mGy.cm CLINICAL HISTORY: cp. TECHNIQUE: Multiaxial CT images of the chest were performed without contrast. A dose lowering technique was utilized adhering to the principles of ALARA. COMPARISON STUDY: 09/27/2024 FINDINGS: There is mild scarring in the lung apices. There is no pulmonary consolidation or pleural effusion. No pneumothorax. No evidence of interstitial lung disease. No significant pulmonary nodule. There is a mildly enlarged lymph node upper left axilla measuring 1.9 x 1.2 cm. No other enlarged adenopathy seen in the chest. No pericardial effusion. No thoracic aortic aneurysm. Lower thoracic spine neurostimulator is present. There are minimal degenerative changes of the thoracic spine. No acute fracture seen of the visualized osseous structures. IMPRESSION: 1. Mildly enlarged left axillary lymph node. Suggest follow-up left axillary ultrasound in 3 months to make sure this finding is not progressive. 2. No other acute findings seen. Otherwise as described. ACT 112: Negative or not required by law. Electronically signed by: Dariusz Mcelroy M.D. 02/13/2025 1:12 PM Discharge Plan Visit Data Chief Complaint: Referred by Doctor Stated Complaint: DR REQUESTING A CT SCAN ED Provider: Kushal Hope Discharge Problem: Dizziness, Chest pain, Imbalance Patient Disposition: Admitted As Inpatient Condition: Fair Discharge Instructions Interventions: ED Discharge Assessment Last Done: 02/13/25 15:35 Discharge Problem: Chest pain Qualifiers: Chest pain type: unspecified Qualified Code(s): R07.9 - Chest pain, unspecified
[2025-02-13] MEDS: SODIUM CHLORIDE 0.9% 500 ML IV ONE ×2 (11:36→13:10)
[2025-02-13 11:50] LABS: Hematocrit (blood only) 32.1 % (37.0-47.0); Hemoglobin 10.9 g/dl (12.0-16.0); Immature Granulocytes # (auto) 0.04 K/uL (0.01-0.20); Immature Granulocytes % (auto) 0.5 %; Mean Corpuscular Hemoglobin 32.5 pg (25.0-34.0); Mean Corpuscular Volume 95.8 fL (80.0-100.0); Platelet Count 315 K/uL (130-400); RDW Standard Deviation 41.3 fL (36.4-46.3); Red Blood Count 3.35 M/uL (4.20-5.40); White Blood Count 8.61 K/ul (4.8-10.8)
--- NOTE | 2025-02-13 11:56 | XRay Report ---
SINGLE VIEW CHEST CLINICAL HISTORY: Dizziness FINDINGS: An AP, portable, upright chest radiograph is compared to study dated 10/27/2024 and correlat ed with chest CT dated 09/27/2024. The cardiomediastinal silhouette is unremarkable. The lungs and pleu ral spaces are clear. No pneumothorax is seen. The skeletal structures are osteopenic. The bony thora x is grossly intact. An intrathecal lead projects over the thoracic spine. A right shoulder arthropla sty is in place. Cholecystectomy clips are noted in the right upper quadrant. IMPRESSION: No active disease in the chest. ACT 112: Negative or not required by law. Electronically signed by: Flavio Arriola M.D. 02/13/2025 11:55 AM
[2025-02-13] MEDS: OPTIRAY 320 125ml IV ONE (12:03)
[2025-02-13 12:12] LABS: Alanine Aminotransferase 7.0 U/L (7-52); Albumin Globulin Ratio 1.4 (0.9-2); Alkaline Phosphatase 59.0 U/L (34-104); Anion Gap 9.0 (3-11); Bilirubin,Total 0.3 mg/dl (0.2-1.0); Blood Urea Nitrogen 15.0 mg/dl (6-23); Calcium 9.1 mg/dl (8.6-10.3); Carbon Dioxide 22.0 mmol/L (21-32); Chloride 107.0 mmol/L (98-107); Creatinine Clr Calc Pharmacy 29.2 ml/min; Globulin 3.1 gm/dl (2.5-4.0); Glucose 110.0 mg/dl (70-99(Fasting)); Lipase 71.0 U/L (11-82); Magnesium 2.0 mg/dl (1.7-2.4); Potassium 3.6 mmol/L (3.5-5.1); Sodium 138.0 mmol/L (136-145); Total Protein 7.5 gm/dl (6.0-8.3)
[2025-02-13 12:28] LABS: Thyroid Stimulating Hormone 0.378 uIu/ml (0.300-4.500)
--- NOTE | 2025-02-13 13:08 | CT Scan Report ---
CT ANGIOGRAPHY OF THE NECK WITH CONTRAST CLINICAL HISTORY: Dizziness. COMPARISON STUDY: CTA of the neck October 28, 2024. Technique: CT angiography of the carotid and vertebral arteries was obtained using Optiray and 3D rec onstruction on an independent workstation. NASCET criteria was utilized. Automated exposure control was utilized for the study. A dose lowering technique was utilized adhering to the principles of ALA RA. Findings: Please note that the chest CT will be reported separately. No cervical spine fractures are present. There is no cervical lymphadenopathy. The bilateral common carotid, cervical internal caroti d and vertebral arteries are patent. There is no stenosis, dissection or aneurysm within the major va sculature of the neck. IMPRESSION: No stenosis or dissection within the bilateral common carotid, cervical internal carotid or vertebral arteries. ACT 112: Negative or not required by law. Electronically signed by: Adi Momin M.D. 02/13/2025 1:05 PM
--- NOTE | 2025-02-13 13:09 | CT Scan Report ---
UNENHANCED CT OF THE BRAIN; CT ANGIOGRAM OF THE BRAIN CLINICAL HISTORY: Dizziness. COMPARISON STUDY: CT angiogram of the brain dated 10/28/2024. TECHNIQUE: Unenhanced axial CT scan of the brain is performed. Subsequently, following the IV adminis tration of 118 cc of Optiray 320, CT angiogram of the brain was performed from the skull base to the vertex. Images are reviewed in the axial, sagittal, and coronal planes. 3-D MIPS images are created a nd assessed. IV contrast was administered without complication. A dose lowering technique was utiliz ed adhering to the principles of ALARA. CT DOSE: 1120.94 mGy.cm FINDINGS: Brain parenchyma: The brain parenchyma is normal in appearance. There is no hemorrhage, mass effect, or evidence of acute territorial ischemia by CT criteria. There is no evidence of enhancing mass lesi on on the angiogram phase images. No extra-axial fluid collection is seen. Moralez-white matter differen tiation is preserved. Ventricles, sulci, and cisterns: Normal in configuration. CT angiogram of the brain: There is mild atherosclerotic calcification of the cavernous carotid and v ertebral arteries. The internal carotid arteries at the skull base are patent, as are the anterior an d middle cerebral arteries. The vertebrobasilar system and posterior cerebral arteries are patent. Th e vertebral arteries are codominant. There is no aneurysm, high-grade stenosis, or focal vessel cutof f identified throughout the intracranial circulation. Dural sinuses: Clear as visualized. Orbits: The bony orbits are intact. The orbital contents are normal as visualized. Sinuses and mastoids: The paranasal sinuses are clear. The mastoid air cells are well pneumatized. Calvarium: Unremarkable. IMPRESSION: 1. No acute intracranial abnormality. 2. Unremarkable CT angiogram of the brain. ACT 112: Negative or not required by law. Electronically signed by: Flavio Arriola M.D. 02/13/2025 1:07 PM
--- NOTE | 2025-02-13 13:14 | CT Scan Report ---
CT chest diagnostic wo con CT DOSE: 213.87 mGy.cm CLINICAL HISTORY: cp. TECHNIQUE: Multiaxial CT images of the chest were performed without contrast. A dose lowering techni que was utilized adhering to the principles of ALARA. COMPARISON STUDY: 09/27/2024 FINDINGS: There is mild scarring in the lung apices. There is no pulmonary consolidation or pleural e ffusion. No pneumothorax. No evidence of interstitial lung disease. No significant pulmonary nodule. There is a mildly enlarged lymph node upper left axilla measuring 1.9 x 1.2 cm. No other enlarged alex nopathy seen in the chest. No pericardial effusion. No thoracic aortic aneurysm. Lower thoracic spine neurostimulator is present. There are minimal degenerative changes of the thoracic spine. No acute f racture seen of the visualized osseous structures. IMPRESSION: 1. Mildly enlarged left axillary lymph node. Suggest follow-up left axillary ultrasound in 3 months t o make sure this finding is not progressive. 2. No other acute findings seen. Otherwise as described. ACT 112: Negative or not required by law. Electronically signed by: Dariusz Mcelroy M.D. 02/13/2025 1:12 PM
[2025-02-13 14:15] LABS: Appearance Urine Turbid (Clear); Bacteria Urine Automated 4+ (None Seen); Cast Urine Automated 0-2 /lpf (0-2); Epithelial Cell Urine Auto 0-2 /hpf (0-2); Glucose Urine UA Negative (Negative); RBC Urine Automated 0-2 /hpf (0-2); WBC Urine Automated >50 /hpf (0-5)
--- NOTE | 2025-02-13 15:07 | History & Physical Report ---
Date of Service February 13, 2025 Assessment & Plan (1) H/O: stroke with residual effects: (2) Fall: (3) Diabetes mellitus, type 2: (4) Kidney disease, chronic, stage III (moderate, EGFR 30-59 ml/min): Plan #Off-balance/falling - while I doubt she has had a new stroke, obviously this is the diagnosis of exclusion. Check MRI brain (she requires 1.5 Dorene machine due to her spinal cord stimulator), repeat A1c and lipids. Large vessels were clear on CT angio. I do not see an echocardiogram from her stay in [facility] for completeness and follow on cardiac monitoring - I am far more suspicious of her having not fully recovered from the previous stroke (it sounds like most of her physical therapy was directed at leg strengthening more than balance), and to having a degree of unmasking/recrudescence when she is either dehydrated/under nourished/hypotensive - follow blood pressure, hydrate, dietitian evaluation, encouraged her to avoid prolonged fasting and to start to work on "educated trial and error" of what food she can tolerate during the day and spite of her gastroparesis - PT/OT eval and treatprobably would benefit from therapy with a bigger focus on balance - continue secondary risk reduction(aspirin, gemfibrozil, inclisiran) # CKD stage IIIfollow creatinine. Avoid nephrotoxic medications. #Type 2 [id number] in October was 5.5. Check A1c in a.m. #iron deficiency anemiauncertain if this has been managed as an outpatient or not. If she is is iron deficient as she was last year, it could maybe be contributing to her symptoms that seem to fit with nutrition/hydration, in a bit of an indirect way. Check iron studies, replace if low. Follow-up with patient regarding last colonoscopy #concern on nutritional status/possible protein calorie malnutritionunclear if she has been losing weight, but certainly it seems that her nutritional status plays a role in her current symptom complex. Dietitian consult as above, encouraged to try to work on avoiding prolonged fasting #DVT prophylaxisheparin subcu (held off on Lovenox given her fairly low weight) #chronic migrainescontinue Topamax History of Present Illness Chief Complaint: Off balance Primary Care Provider: Madison Barry DO patient is very pleasant 64-year-old female accompanied by her . She comes after an event on Tuesday, but also this been going on with some degree of frequency since her stroke. On Tuesday specifically would happen when she was outside for about a half an hour with her husbandshe was doing gardening. She then was going to go inside to get some water, and as she started up the stairs, she got about 2 steps up and then felt exceedingly off balance falling to the left. She hit her head, although she does not seem to think badly, and reached out to steady herselfshe is really not sure how she did not fall, but managed to not actually fall. Once she was able to collect her cell she sat on the steps for a little bit, and then she was able to proceed inside and get a drink. After that she stayed in the chair for a while because she felt very fatigued. She notes that since the stroke, she frequently struggles with balance issues going to the left. There was not necessarily anything new or different about Sundays episode except for the fact that it was one of the most severe. She also has gastroparesis, and notes that frequently she will not eat until 3 in the afternoon (her is quite worried about this), and although while I cannot get an exact estimate of ounces, she does seem to stay reasonably well- hydrated. Her blood pressures at home tend to run 90s to low 100s systolic and 50s to low 60s diastolic. Allergies Allergy/AdvReac Type Severity Reaction Status Date / Time Penicillins Allergy Intermediate Hives Verified 02/13/25 14:21 vancomycin Allergy Intermediate Rash Verified 02/13/25 14:21 tramadol Allergy Mild Rash Verified 02/13/25 14:21 acetaminophen [From [place]] Allergy Unknown Unknown Unverified 02/13/25 14:21 hydrocodone [From [place]] Allergy Unknown Unknown Unverified 02/13/25 14:21 diphenhydramine Allergy Itching Verified 02/13/25 14:21 [From Benadryl] fluvastatin Allergy "Itchy all Verified 02/13/25 14:21 over" rosuvastatin Allergy "Itchy all Verified 02/13/25 14:21 over" tizanidine [From Zanaflex] AdvReac Severe Hallucinati Verified 02/13/25 14:21 ons metoclopramide [From Reglan] AdvReac Intermediate Constipatio Verified 02/13/25 14:21 n morphine AdvReac Intermediate N/V Verified 02/13/25 14:21 Home Medications Medication Instructions Recorded Confirmed Type trazodone 50 mg tablet 50 mg PO HS sleep 11/17/22 02/13/25 History bupropion HCl 150 mg 24 hr tablet, 150 mg PO QAM 30 days #30 tabs 11/29/22 02/13/25 Rx extended release (Wellbutrin XL) gemfibrozil 600 mg tablet (Lopid) 600 mg PO BID 05/04/23 02/13/25 History metformin 500 mg tablet 500 mg PO BID 08/18/23 02/13/25 History inclisiran 284 mg/1.5 mL 284 mg subcut DIRECTED 09/27/24 02/13/25 History subcutaneous syringe (Leqvio) pantoprazole 40 mg tablet,delayed 40 mg PO BID 09/27/24 02/13/25 History release aspirin 81 mg tablet,delayed 81 mg PO QAM #30 tabs 09/29/24 02/13/25 Rx release buspirone 15 mg tablet 15 mg PO TID 10/27/24 02/13/25 History famotidine 40 mg tablet 40 mg PO BID 10/27/24 02/13/25 History lifitegrast 5 % eye drops in a 1 drp OPB BID PRN Dry Eyes 10/27/24 02/13/25 History dropperette (Xiidra) promethazine 12.5 mg tablet 12.5 mg PO Q6H PRN Nausea And 10/27/24 02/13/25 History Vomiting ranolazine 500 mg tablet,extended 500 mg PO BID 10/27/24 02/13/25 History release,12 hr pioaahromc-vmoaimdheftke-xvkhckpt 1 cap PO TID PRN pain #3 caps 10/29/24 02/13/25 Rx 50 mg-300 mg-40 mg capsule (Fioricet) cyanocobalamin (vitamin B-12) 1,000 mcg PO DAILY 01/17/25 02/13/25 History 1,000 mcg tablet (Vitamin B-12) levothyroxine 100 mcg tablet 100 mcg PO DAILY 01/17/25 02/13/25 History rimegepant 75 mg disintegrating 75 mg PO DIRECTED PRN Migraine 01/17/25 02/13/25 Rx tablet (Nurtec ODT) Headache #8 tabs topiramate 100 mg tablet 100 mg PO BID 90 days #180 tabs 01/17/25 02/13/25 Rx docusate sodium 100 mg capsule 100 mg PO BID 02/13/25 02/13/25 History (Colace) Past Med/Surg History Problem List (Updated 02/13/25 @ 15:16 by Huber Woods DO) Fall H/O: stroke with residual effects Stroke Coronary vasospasm Anemia Renal insufficiency Hypercholesterolemia Diabetes Abnormal stress echo Unstable angina Generalized weakness (Acute) Chest pain (Acute) Overactive bladder Flank pain Abnormal urine odor AMS (altered mental status) (Acute) Idiosyncratic reaction to medication after proper dose Gastroparesis reports constant nausea Migraines Osteopenia Pseudogout of hand Interstitial cystitis Impaired fasting blood sugar Memory loss Cognitive and behavioral changes Gastroparesis Secondary osteoarthritis, right shoulder Balance problem Fatty liver Depression with anxiety (Acute) Degenerative arthritis of right shoulder region Hyperlipidemia Medical History Chronic nausea Stroke-like symptoms Kidney disease, chronic, stage III (moderate, EGFR 30-59 ml/min) Diabetes mellitus, type 2 Hypothyroidism, postablative History of trigger finger (09/05/23) left trigger finger release 09/05/23, [facility] Hypothyroidism Chronic idiopathic constipation Cervical stenosis of spine following with Dr Richmond Camp 08/25/23 Hx of peptic ulcer Hx of peptic ulcer [id number] Hearing loss 33% Bilateral H/A Hx of papillary thyroid carcinoma status post completion thyroidectomy 08/2020 Ovarian cyst Left simple ovarian cyst ultrasound 03/2021 by [employer] Hiatal hernia Claustrophobia MVP (mitral valve prolapse) Reported per patient Not noted per 07/28/20 echo Fibromyalgia GERD (gastroesophageal reflux disease) Controlled Surgical History Status post right shoulder hemiarthroplasty Status post reverse total shoulder replacement right shoulder S/P foot surgery, left S/P foot surgery, right multiple History of laparoscopic appendectomy (06/19/22) Laparoscopic Appendectomy, laparoscopic lysis of adhesion Status post complete thyroidectomy (~08/2020) History of foot surgery R/L great toe surgeries Right foot bunionectomy and MTP arthroplasty (03/31/18): LMA#4 at [facility] Left foot great toe Arthrosurface hemiarthroplasty (04/03/21): LMA#4, attempt x1, atraumatic at [facility]. No issues noted per post-op anesthesia progress note. History of liver biopsy History of esophagogastroduodenoscopy (EGD) Hx of cholecystectomy History of partial hysterectomy TLH, ovaries retained Hx of section X3 Hx of carpal tunnel repair R/L Hx of thumb surgery R/L "joint removed" Hx of total knee replacement R/L Hx of elbow surgery R/L Hx of arthroscopy of shoulder right x2, left x1: resurfacing 04/15/20: Grade 1 view, MAC 3, ETT 7.0 + PNB. History of herniorrhaphy right inguinal repair History of colonoscopy History of tonsillectomy Family History Father Diabetes Myocardial infarction ? Sister Thyroid cancer Breast cancer Mother Alzheimer disease Hypertension Other No family history of adverse response to anesthesia Denies family history of Ovarian cancer Prostate cancer Lung cancer Colorectal cancer Uterine cancer Stroke Social History Smoking Status: Never smoker Second Hand Exposure: No; Do You Dip or Chew Tobacco: No; Hx Alcohol Use: No Hx Substance Use: No Preferred Language: Turkish Communication Ability: Effective Visual Impairment: No Limitations Hearing Ability: Hard of Hearing Child Protection Specialist Required: No Beliefs That Will Affect Care: None marital status: Current Living Situation: Spouse current occupational status: disabled How many Children do You have: 3 Feels Safe at Home: Yes Childhood Exposure to Second-Hand Smoke: No Diet: regular caffeine: No Dental Care, Regularly: Yes Seatbelt Use: never Assistive Devices: Cane and Walker Review of Systems Review of Systems: All systems reviewed & are unremarkable except as noted in HPI & below Physical Exam Physical Exam: In general she is awake alert oriented pleasant no distress. HEENT normocephalic atraumatic mucous membranes moist. Breathing unlabored no accessory muscle use good effort. Cardio is regular without rubs murmurs or gallops and lungs are clear without rales rhonchi or wheezes. Abdomen is soft nondistended nontender no masses organomegaly. Extremities show no cyanosis clubbing or edema no calf tenderness. Neuro shows cranial nerves II through XII to be grossly intact gross motor and sensory are equal and intact motor is 5 out of 5 equal bilaterally and subjectively there are no sensory deficits. I was not able to get her up to walker. Skin shows no rashes no pallor or icterus. Results & Data Results & Data Vital Signs (Past 12 Hours) Vital Signs Temp Pulse Pulse Resp BP BP Pulse Ox 02/13/25 14:00 98 H 19 98 02/13/25 13:24 95 H 02/13/25 13:09 81 21 125/65 100 02/13/25 11:16 83 99 02/13/25 11:06 97.7 F 98 H 17 116/73 100 O2 Del Method 02/13/25 14:00 Room Air 02/13/25 13:24 02/13/25 13:09 Room Air 02/13/25 11:16 Room Air 02/13/25 11:06 Room Air Code Status & VTE Plan VTE Prophylaxis Plan VTE Prophylaxis will be ordered: Yes PG Care Time/CCT Total # of Minutes Spent Total Time Spent with Patient: Total time spent is greater than 50% in coordination of care (as documented) at patient's floor/unit and/or counseling patient: Coding Level of Care Code 75630 INT INP/OBS CARE 3/75MIN Diagnoses H/O: stroke with residual effects I69.30 Fall W19.XXXA Diabetes mellitus, type 2 E11.9 Kidney disease, chronic, stage III (moderate, EGFR 30-59 ml/min) N18.30
[2025-02-13] MEDS ORDERED: ONDANSETRON INJ 2 MG/ML 2 ML VIAL IV PRN (16:12)
[2025-02-13] MEDS ORDERED: MELATONIN 3 MG TAB PO PRN (16:12)
[2025-02-13] MEDS ORDERED: ALUMINUM/MAGNESIUM SUSP 30 ML UDC PO PRN (16:12)
[2025-02-13] MEDS ORDERED: POLYETHYLENE (MIRALAX) 17 GM PACK PO PRN (16:12)
[2025-02-13] MEDS ORDERED: [UNRECOGNIZED DRUG - OTHER] SQ SCH (16:12)
[2025-02-13] MEDS ORDERED: MAGNESIUM HYDROXIDE SUSP 30 ML UDC PO PRN (16:12)
[2025-02-13] MEDS ORDERED: PROMETHAZINE HCL 25 MG TAB PO PRN (16:12)
[2025-02-13] MEDS ORDERED: PHARMACIST DISCHARGE MED REC CONSULT PRN (16:12)
[2025-02-13] MEDS ORDERED: ARTIFICIAL TEARS OP PRN (16:39)
[2025-02-13] MEDS: LACTATED RINGER'S 1,000 ML IV SCH (17:17)
[2025-02-13] MEDS: busPIRone 15 MG TAB PO SCH (20:32)
[2025-02-13] MEDS: RANOLAZINE 500 MG ER TAB PO SCH (20:32)
[2025-02-13] MEDS: HEPARIN SOD 5,000 UNIT/0.5 ML VIAL SQ SCH (20:32)
[2025-02-13] MEDS: TOPIRAMATE 100 MG TAB PO SCH (20:32)
[2025-02-13] MEDS: FAMOTIDINE 40 MG TABLET PO SCH (20:33)
[2025-02-13] MEDS: DOCUSATE SODIUM 100 MG CAP PO SCH (20:35)
--- NOTE | 2025-02-13 23:42 | Magnetic Resonance Report ---
Exam(s): MRI HEAD Without Contrast EXAM: MR Head Without Intravenous Contrast CLINICAL HISTORY: Reason for exam: stroke, MUST BE 1.5T machine. TECHNIQUE: Magnetic resonance images of the head/brain without intravenous contrast in multiple planes. COMPARISON: Prior brain MRI from December 31, [address] from February 13, 2025. FINDINGS: Brain: Mild nonspecific white matter changes. No mass. No hemorrhage. No acute infarct. The flow voids at the base the brain are intact. Ventricles: Unremarkable. No ventriculomegaly. Bones/joints: Unremarkable. No acute fracture. Sinuses: Unremarkable as visualized. No acute sinusitis. Mastoid air cells: Unremarkable as visualized. No mastoid effusion. Orbits: Unremarkable as visualized. IMPRESSION: No evidence of acute intracranial pathology. Electronically signed by: Shawna Gonzales MD 02/13/25 23:41 PM
[2025-02-14] MEDS: LEVOTHYROXINE SODIUM 100 MCG TABLET PO SCH (05:37)
[2025-02-14 06:57] LABS: Hematocrit (blood only) 28.1 % (37.0-47.0); Hemoglobin 9.4 g/dl (12.0-16.0); Immature Granulocytes # (auto) 0.02 K/uL (0.01-0.20); Immature Granulocytes % (auto) 0.3 %; Mean Corpuscular Hemoglobin 32.1 pg (25.0-34.0); Mean Corpuscular Volume 95.9 fL (80.0-100.0); Platelet Count 273 K/uL (130-400); RDW Standard Deviation 41.1 fL (36.4-46.3); Red Blood Count 2.93 M/uL (4.20-5.40); White Blood Count 7.05 K/ul (4.8-10.8)
[2025-02-14 07:16] LABS: Hemoglobin A1C 5.4 % (4.5-5.6)
[2025-02-14 07:18] LABS: Anion Gap 7.0 (3-11); Blood Urea Nitrogen 13.0 mg/dl (6-23); Calcium 8.6 mg/dl (8.6-10.3); Carbon Dioxide 22.0 mmol/L (21-32); Chloride 109.0 mmol/L (98-107); Cholesterol 162.0 mg/dl (0-200); Creatinine Clr Calc Pharmacy 35.2 ml/min; Glucose 89.0 mg/dl (70-99(Fasting)); HDL Cholesterol 45.0 mg/dl; Iron 62.0 mcg/dl (35-150); Potassium 4.0 mmol/L (3.5-5.1); Sodium 138.0 mmol/L (136-145); Total Iron Binding Cap Calc 335.0 mcg/dl (250-450); Transferrin 239.0 mg/dl (200-360); Transferrin (FE) Percent Satur 19.0 % (15-50); Triglycerides 186.0 mg/dl (0-150)
[2025-02-14] MEDS ORDERED: GLUCAGON FOR INJ 1 MG VIAL SQ PRN (07:30)
[2025-02-14] MEDS ORDERED: GLUCOSE 40% GEL 15 GM TUBE PO PRN (07:30)
[2025-02-14] MEDS ORDERED: CARBOHYDRATES FOR HYPOGLYCEMIA PO PRN (07:30)
[2025-02-14] MEDS ORDERED: DEXTROSE 50% 50 ML SYRINGE IV PRN (07:30)
[2025-02-14] MEDS ORDERED: GLUCOSE 10 TAB/TUBE PO PRN (07:30)
[2025-02-14 07:38] LABS: Ferritin 128.0 ng/ml (8-388)
[2025-02-14] MEDS: ASPIRIN 81 MG ECTAB PO SCH (08:05)
[2025-02-14] MEDS: BUTALBITAL/ACETAMIN/CAFFEINE TAB PO PRN (08:05)
[2025-02-14] MEDS: CYANOCOBALAMIN (B-12) 500 MCG TABLET PO SCH (08:06)
[2025-02-14] MEDS: INSULIN ASPART PER UNIT CHARGE SC SCH (08:10)
--- NOTE | 2025-02-14 08:21 | Electrocardiogram Report ---
Test Reason : Blood Pressure : */* mmHG Vent. Rate : 84 BPM Atrial Rate : 84 BPM P-R Int : 144 ms QRS Dur : 76 ms QT Int : 362 ms P-R-T Axes : 57 9 41 degrees QTcB Int : 427 ms Normal sinus rhythm Normal ECG When compared with ECG of 27-Oct-2024 10:26, Nonspecific T wave abnormality now evident in Anterior leads Confirmed by Polly Harper (Lidya) on 02/14/2025 8:21:23 AM Referred By: Confirmed By: Polly Harper
--- NOTE | 2025-02-14 08:22 | Electrocardiogram Report ---
Test Reason : Blood Pressure : */* mmHG Vent. Rate : 92 BPM Atrial Rate : 92 BPM P-R Int : 170 ms QRS Dur : 76 ms QT Int : 368 ms P-R-T Axes : 61 50 52 degrees QTcB Int : 455 ms Normal sinus rhythm Normal ECG When compared with ECG of 13-Feb-2025 11:22, (unconfirmed) Nonspecific T wave abnormality no longer evident in Inferior leads Nonspecific T wave abnormality no longer evident in Anterior leads The QRS axis has shifted Confirmed by Polly Harper ([id number]) on 02/14/2025 8:22:32 AM Referred By: REFERRED SELF Confirmed By: Polly Harper
[2025-02-14 11:38] VITALS: BP 125/66; PULSE 81; RESP 18; TEMP 97.5; O2SAT 100
[2025-02-14] MEDS: NITROFURANTOIN MONOHYDRATE 100 MG CAP PO ONE (12:24)
--- NOTE | 2025-02-14 13:40 | Discharge Summary ---
Date of Service February 14, 2025 Admission HPI Per Admitting Provider patient is very pleasant 64-year-old female accompanied by her . She comes after an event on Tuesday, but also this been going on with some degree of frequency since her stroke. On Tuesday specifically would happen when she was outside for about a half an hour with her husbandshe was doing gardening. She then was going to go inside to get some water, and as she started up the stairs, she got about 2 steps up and then felt exceedingly off balance falling to the left. She hit her head, although she does not seem to think badly, and reached out to steady herselfshe is really not sure how she did not fall, but managed to not actually fall. Once she was able to collect her cell she sat on the steps for a little bit, and then she was able to proceed inside and get a drink. After that she stayed in the chair for a while because she felt very fatigued. She notes that since the stroke, she frequently struggles with balance issues going to the left. There was not necessarily anything new or different about Sundays episode except for the fact that it was one of the most severe. She also has gastroparesis, and notes that frequently she will not eat until 3 in the afternoon (her is quite worried about this), and although while I cannot get an exact estimate of ounces, she does seem to stay reasonably well- hydrated. Her blood pressures at home tend to run 90s to low 100s systolic and 50s to low 60s diastolic. Admission Exam Per Admitting Provider In general she is awake alert oriented pleasant no distress. HEENT normocephalic atraumatic mucous membranes moist. Breathing unlabored no accessory muscle use good effort. Cardio is regular without rubs murmurs or gallops and lungs are clear without rales rhonchi or wheezes. Abdomen is soft nondistended nontender no masses organomegaly. Extremities show no cyanosis clubbing or edema no calf tenderness. Neuro shows cranial nerves II through XII to be grossly intact gross motor and sensory are equal and intact motor is 5 out of 5 equal bilaterally and subjectively there are no sensory deficits. I was not able to get her up to walker. Skin shows no rashes no pallor or icterus. Principal Diagnosis Stroke Like Symptoms Discharge Exam GA: well groomed, well nourished in no apparent distress. AAOx3 HEENT: head normocephalic, atraumatic. EOMI. No conjunctival pallor RESP: vesicular breath sounds b/l. No wheezes, rhonchi, or rales CARDIOVASCULAR: S1 and S2 heard. No murmurs, rubs, or gallops. Radial pulses 2+ b/l GI: Normoactive bowel sounds, no tenderness or masses felt to palpation MSK: no gross abnormalities or focal deficits SKIN: warm, dry PSYCH: appropriate mood and affect NEURO: no focal deficits noted. CN 2-12 intact. Strength 5/5 in UE and LE b/l. Patellar reflexes 1+ b/l. Finger to nose testing normal. Discharge Data Allergies Allergy/AdvReac Type Severity Reaction Status Date / Time Penicillins Allergy Intermediate Hives Verified 02/13/25 14:21 vancomycin Allergy Intermediate Rash Verified 02/13/25 14:21 tramadol Allergy Mild Rash Verified 02/13/25 14:21 acetaminophen [From [place]] Allergy Unknown Unknown Unverified 02/13/25 14:21 hydrocodone [From [place]] Allergy Unknown Unknown Unverified 02/13/25 14:21 diphenhydramine Allergy Itching Verified 02/13/25 14:21 [From Benadryl] fluvastatin Allergy "Itchy all Verified 02/13/25 14:21 over" rosuvastatin Allergy "Itchy all Verified 02/13/25 14:21 over" tizanidine [From Zanaflex] AdvReac Severe Hallucinati Verified 02/13/25 14:21 ons metoclopramide [From Reglan] AdvReac Intermediate Constipatio Verified 02/13/25 14:21 n morphine AdvReac Intermediate N/V Verified 02/13/25 14:21 Consultations 02/13/25 14:13 ED Decision to Admit Stat Ordered Studies 02/13/25 11:17 CT angio head w con Stat CT angio neck with con Stat CT head/brain wo con Stat 02/13/25 12:51 CT chest diagnostic wo con Stat 02/13/25 16:12 MR brain wo con Routine Hospital Course (1) Imbalance: (2) H/O: stroke with residual effects: (3) Stroke-like symptoms: (4) Anemia: (5) Diabetes: Plan #Off-balance/falling #Stroke-like Symptoms -stroke workup negative. Brain MRI: no acute intracranial pathology -Echo 02/14/25 was unremarkable -follow up with PCP and Neurology outpatient -consider PT/OT treatment in outpatient setting with focus on balance training -continue secondary risk reduction aspirin, gemfibrozil, inclisiran -stopped metformin due to A1C of 5.4 and concern for hypoglycemia contributing to her sx -advised stopping or lowering dose of famotidine to 20mg once daily, pt states she is not currently taking at home #CKD stage III, stable -Avoid nephrotoxic medications. #Type 2 [id number] 5.4 -stop metformin #iron deficiency anemia, stable Iron studies normal -Follow-up outpatient #concern on nutritional status/possible protein calorie malnutrition -recommend eating something small for breakfast and throughout the day as tolerated -consider outpatient dietary consult counseling for nutritional recommendations -consider psychiatry referral regarding this as patient's mood becomes sad when discussing #chronic migrainescontinue Topamax Total Time Total Time Spent Total Time Spent (In Minutes): see attending physicina attestation Discharge Plan Discharge Items Patient Disposition: Home - Self-Care Reason For Visit: OFF BALANCE, ?CVA Discharge Diagnosis: Stroke Like Symptoms Condition on Discharge: Fair Activity: Resume your previous activity Non-emergency contact: Primary Care Provider Call non-emergency contact if: your symptoms worsen Follow-up/Referrals: Kyle Hollingsworth MD [Physician] - (Office will call pt to schedule) Madison Barry DO [Primary Care Provider] - 02/19/25 1:00 pm (Primary Care hospital follow up scheduled 02/19/25 at 1:00 with Terri Cornelius) Diet: Heart Healthy Addtl Attending Provider Instructions: You were admitted to the hospital because you were feeling off balance. Your hospital workup was negative for a neurologic (brain and spinal cord) or cardiov ascular (heart) cause of your symptoms. It seems that your symptoms may be related to the stroke you had in September/October. Your symptoms did not worsen during your hospital stay. You were also diagnosed with a UTI which may be contributing to your urinary symptoms and other symptoms that you have been experiencing. We gave you one dose of the antibiotic (Macrobid) while here in the hospital. Please follow the regimen described below. We recommend you stop taking metformin since your sugar numbers have been good and low blood sugar may be contributing to your symptoms. We also recommend you continue to stop or only take 20mg of famotidine once daily. Please use your walker to move around your house as needed. Please follow-up with your primary doctor within 1-2 weeks to discuss your hospital admission. Please call Dr. Hollingsworth's office to schedule an appointment within 2-3 weeks of discharge. Please consider physical therapy and/or occupational therapy on an outpatient basis to help with balance training. Medication changes: -Stop taking metformin -Discontinue or only take 20mg of famotidine once daily if needed -For UTI: Take one tab of Nitrofurantoin 100mg twice a day for a total of 5 days. You were given a dose in the hospital, so take your next dose around 10pm this evening and the following dose tomorrow morning then every 12 hours after. Take for 4 more days. Home Medications: Take rest of home medications as previously prescribed Thank you for allowing us to take care of you. It was a pleasure meeting you. Pending Studies at Discharge: No Stand-Alone Forms: My [facility], Smoking Cessation Medications and DC Order Prescriptions: New nitrofurantoin monohyd/m-cryst [Macrobid] 100 mg capsule 100 mg PO BID 5 Days Qty: 9 0RF Rx Instructions: must administer with a meal/food Continued bupropion HCl [Wellbutrin XL] 150 mg tablet extended release 24 hr 150 mg PO QAM 30 Days Qty: 30 2RF gemfibrozil [Lopid] 600 mg tablet 600 mg PO BID levothyroxine 100 mcg tablet 100 mcg PO DAILY topiramate 100 mg tablet 100 mg PO BID 90 Days Qty: 180 3RF Nurtec ODT 75 mg tablet,disintegrating 75 mg PO DIRECTED PRN (Reason: Migraine Headache) Qty: 8 5RF Rx Instructions: 75 mg PO take one tablet at migraine onset as directed; trazodone 50 mg tablet 50 mg PO HS Hold Instructions: Home Medication placed on hold at Doctor's office promethazine 12.5 mg tablet 12.5 mg PO Q6H PRN (Reason: Nausea And Vomiting) ranolazine 500 mg tablet extended release 12 hr 500 mg PO BID Xiidra 5 % dropperette 1 drp OPB BID PRN (Reason: Dry Eyes) buspirone 15 mg tablet 15 mg PO TID [id number] [Fioricet] 50-300-40 mg capsule 1 cap PO TID PRN (Reason: pain) Qty: 3 0RF docusate sodium [Colace] 100 mg Capsule 100 mg PO BID cyanocobalamin (vitamin B-12) [Vitamin B-12] 1,000 mcg tablet 1,000 mcg PO DAILY pantoprazole 40 mg tablet,delayed release (DR/EC) 40 mg PO BID Leqvio 284 mg/1.5 mL Syringe 284 mg subcut DIRECTED Rx Instructions: @ 6 MONTHS - aspirin 81 mg Tablet,Delayed Release (Dr/Ec) 81 mg PO QAM Qty: 30 0RF Discontinued famotidine 40 mg tablet 40 mg PO BID metformin 500 mg Tablet 500 mg PO BID Discharge Orders: Discharge Order (Routine); Ordered 02/14/25 Ordered By: Lawrence Estrada Admission Data Admit Date/Time: 02/13/25 15:00 Attending Provider: Arthur Contreras Admit Provider: Huber Woods Primary Care Provider: Madison Barry Other Providers: Huber Woods Other Interventions: Discharge Summary Assessment (RN) Last Done: 02/14/25 13:37 Resident Activity Tracking Resident Involvement: Resident Care Provided Care Provided: Adult Hospital Medicine
== END 2025-02-14 16:07 | disposition home or self-care (01) ==
LOC: ED 11:04 → 2S 11:04 → SUATTDRO 15:00 → 2S 15:35

== ENCOUNTER 2025-04-29 12:42 | Observation (INO) ==
[2025-04-29 13:13] LABS: Hematocrit (blood only) 35.1 % (37.0-47.0); Hemoglobin 11.7 g/dL (12.0-16.0); Immature Granulocytes # (auto) 0.03 K/uL (0.01-0.20); Immature Granulocytes % (auto) 0.5 %; Mean Corpuscular Hemoglobin 31.0 pg (25.0-34.0); Mean Corpuscular Volume 93.1 fL (80.0-100.0); Platelet Count 274 K/uL (130-400); RDW Standard Deviation 41.9 fL (36.4-46.3); Red Blood Count 3.77 M/uL (4.20-5.40); White Blood Count 5.60 K/ul (4.8-10.8)
--- NOTE | 2025-04-29 13:28 | Emergency Department Note ---
Impression & Plan Chest pain, Anemia, CKD (chronic kidney disease) ED Provider Note NAME: JERRICA ALLISON AGE: 64 SEX: F : 1960 ARRIVES VIA: Walk-In INFORMANT: Patient ED PROVIDER(S): Huber Erazo DO CHIEF COMPLAINT: Chest tightness and jaw pain HPI: Patient is a 64-year-old female with a past medical history of coronary vasospasm, chest pain, unstable angina who presents to the ER for tightness in her chest associate with shortness of breath and bilateral jaw pain. She notes this feels like her previous vasospasm. Family present bedside notes that she had something similar last September. She denies any belly pain, nausea, vomiting, or diarrhea. She notes the chest tightness is still there since 9 AM. She does have the shortness of breath and bilateral neck pain. She did take an 81 mg of aspirin prior to arrival. ADDITIONAL HISTORY OBTAINED: Per HPI Chronic Medical/Social Conditions Affecting Care: Per HPI PAST MEDICAL HISTORY:See Below PAST SURGICAL HISTORY:See Below FAMILY HISTORY:See Below SOCIAL HISTORY:See Below HOME MEDICATIONS:See Below ALLERGIES:See Below VITALS:See Below PHYSICAL EXAMINATION: GENERAL: Sitting up in bed, alert, well appearing, well nourished, no distress, non-toxic EYE EXAM: normal conjunctiva. OROPHARYNX: no exudate, no erythema, lips, buccal mucosa, and tongue normal and mucous membranes are moist NECK: supple, no nuchal rigidity, no adenopathy, non-tender LUNGS: Clear to auscultation. Normal chest wall mechanics HEART: no murmurs, S1 normal and S2 normal ABDOMEN: abdomen soft, non-tender, normo-active bowel sounds, no masses, no rebound or guarding. BACK: Back is symmetrical on inspection and there is no deformity, no midline tenderness, no CVA tenderness. UPPER EXTREMITIES: upper extremities are grossly normal. LOWER EXTREMITIES: No pitting edema. Calves are equal bilateral NEURO EXAM: Normal sensorium, cranial nerves II-XII grossly intact, normal speech, no gross weakness of arms, no gross weakness of legs. MEDICAL DECISION MAKING: Patient is a 64-year-old female who presents ER with above-stated complaint. IV was established and blood work was obtained. Labs showed no significant leukocytosis. Mild anemia 11.7. INR unremarkable. BMP with a creatinine 1.6 up from baseline 1.3. LFTs bilirubin were unremarkable. Troponins were negative x 1. Lipase was normal. She notes the chest pain/pressure shortness of breath and jaw pain feels consistent with her previous cardiac events consequently did discuss case with the hospitalist. She was given aspirin orally and was given nitro with resolution of her pain. Consults/Care Managements Discussions: Per MDM Triage Nursing notes reviewed. Limited review of prior medical records performed Vital Signs: reviewed and remarkable for no significant abnormalities Differential diagnosis: Cardiac ischemia, aortic dissection, pulmonary embolism, pneumothorax, pneumonia, pericarditis, myocarditis, esophageal rupture, GERD, cholecystitis, pancreatitis, musculoskeletal, as well as other pathologies. ER treatment provided: See below Diagnostics interpreted by me include EKG and cardiac monitoring as listed below: -Cardiac Monitoring: An order was placed for continuous cardiac monitoring. The monitor shows a rate of 80 with sinus rhythm. -ECG: Sinus rhythm rate of 78 Normal axis No PVCs QTc 440 -Laboratory studies:Interpreted by me as stated above in MDM and shown below. Imaging studies: Xrays: As interpreted by me: Portable AP upright 1 view of the chest shows no focal Lutrate CTs show: none Procedures:none Critical Care: None Past Med/Surg History Problem List (Updated 04/29/25 @ 17:06 by Huber Erazo DO) CKD (chronic kidney disease) (Acute) Anemia (Acute) Chest pain (Acute) Right lower quadrant abdominal pain Lipoma of right lower extremity Sensitive skin Pruritus Dry skin dermatitis Seizure-like activity Mass of soft tissue of right lower extremity Imbalance (Acute) Chest pain (Acute) Dizziness (Acute) Fall H/O: stroke with residual effects Stroke Coronary vasospasm Anemia Renal insufficiency Hypercholesterolemia Diabetes Abnormal stress echo Unstable angina Generalized weakness (Acute) Chest pain (Acute) Overactive bladder Flank pain Abnormal urine odor AMS (altered mental status) (Acute) Idiosyncratic reaction to medication after proper dose Gastroparesis reports constant nausea Migraines Osteopenia Pseudogout of hand Interstitial cystitis Impaired fasting blood sugar Memory loss Cognitive and behavioral changes Gastroparesis Secondary osteoarthritis, right shoulder Balance problem Fatty liver Depression with anxiety (Acute) Degenerative arthritis of right shoulder region Hyperlipidemia Medical History Chronic nausea Stroke-like symptoms Kidney disease, chronic, stage III (moderate, EGFR 30-59 ml/min) Diabetes mellitus, type 2 Hypothyroidism, postablative History of trigger finger (09/05/23) left trigger finger release 09/05/23, [facility] Hypothyroidism Chronic idiopathic constipation Cervical stenosis of spine following with Dr Richmond Camp 08/25/23 Hx of peptic ulcer Hx of peptic ulcer [id number] Hearing loss 33% Bilateral H/A Hx of papillary thyroid carcinoma status post completion thyroidectomy 08/2020 Ovarian cyst Left simple ovarian cyst ultrasound 03/2021 by [employer] Hiatal hernia Claustrophobia MVP (mitral valve prolapse) Reported per patient Not noted per 07/28/20 echo Fibromyalgia GERD (gastroesophageal reflux disease) Controlled Surgical History Status post right shoulder hemiarthroplasty Status post reverse total shoulder replacement right shoulder S/P foot surgery, left S/P foot surgery, right multiple History of laparoscopic appendectomy (06/19/22) Laparoscopic Appendectomy, laparoscopic lysis of adhesion Status post complete thyroidectomy (~08/2020) History of foot surgery R/L great toe surgeries Right foot bunionectomy and MTP arthroplasty (03/31/18): LMA#4 at [facility] Left foot great toe Arthrosurface hemiarthroplasty (04/03/21): LMA#4, attempt x1, atraumatic at [facility]. No issues noted per post-op anesthesia progress note. History of liver biopsy History of esophagogastroduodenoscopy (EGD) Hx of cholecystectomy History of partial hysterectomy TLH, ovaries retained Hx of section X3 Hx of carpal tunnel repair R/L Hx of thumb surgery R/L "joint removed" Hx of total knee replacement R/L Hx of elbow surgery R/L Hx of arthroscopy of shoulder right x2, left x1: resurfacing 04/15/20: Grade 1 view, MAC 3, ETT 7.0 + PNB. History of herniorrhaphy right inguinal repair History of colonoscopy History of tonsillectomy Family History Father Diabetes Myocardial infarction ? Sister Thyroid cancer Breast cancer Mother Alzheimer disease Hypertension Other No family history of adverse response to anesthesia Denies family history of Ovarian cancer Prostate cancer Lung cancer Colorectal cancer Uterine cancer Stroke Social History Smoking Status: Never smoker Second Hand Exposure: No; Do You Dip or Chew Tobacco: No; Hx Alcohol Use: No Hx Substance Use: No Preferred Language: Citizen Of [place] Communication Ability: Effective Visual Impairment: No Limitations Hearing Ability: Hard of Hearing Electrophysiology Tech Required: No Beliefs That Will Affect Care: None marital status: Current Living Situation: Spouse current occupational status: disabled How many Children do You have: 3 Feels Safe at Home: Yes Childhood Exposure to Second-Hand Smoke: No Diet: regular caffeine: No Dental Care, Regularly: Yes Seatbelt Use: never Assistive Devices: Glasses Allergies Allergies Allergy/AdvReac Type Severity Reaction Status Date / Time Penicillins Allergy Intermediate Hives Verified 04/17/25 11:37 vancomycin Allergy Intermediate Rash Verified 04/17/25 11:37 tramadol Allergy Mild Rash Verified 04/17/25 11:37 acetaminophen [From Glennie] Allergy Unknown Unknown Unverified 04/17/25 11:37 hydrocodone [From Glennie] Allergy Unknown Unknown Unverified 04/17/25 11:37 diphenhydramine Allergy Itching Verified 04/17/25 11:37 [From Benadryl] fluvastatin Allergy "Itchy all Verified 04/17/25 11:37 over" rosuvastatin Allergy "Itchy all Verified 04/17/25 11:37 over" tizanidine [From Zanaflex] AdvReac Severe Hallucinati Verified 04/17/25 11:37 ons metoclopramide [From Reglan] AdvReac Intermediate Constipatio Verified 04/17/25 11:37 n morphine AdvReac Intermediate N/V Verified 04/17/25 11:37 Home Meds Home Medications Medication Instructions Recorded Confirmed trazodone 50 mg tablet 100 mg PO HS sleep 11/17/22 04/29/25 inclisiran 284 mg/1.5 mL 284 mg subcut DIRECTED 09/27/24 04/29/25 subcutaneous syringe (Leqvio) pantoprazole 40 mg tablet,delayed 40 mg PO BID 09/27/24 04/29/25 release buspirone 15 mg tablet 15 mg PO TID 10/27/24 04/29/25 promethazine 12.5 mg tablet 12.5 mg PO Q6H PRN Nausea And 10/27/24 04/29/25 Vomiting cyanocobalamin (vitamin B-12) 1,000 mcg PO DAILY 01/17/25 04/29/25 1,000 mcg tablet (Vitamin B-12) levothyroxine 100 mcg tablet 100 mcg PO DAILY 01/17/25 04/29/25 docusate sodium 100 mg capsule 100 mg PO BID 02/13/25 04/29/25 (Colace) cholecalciferol (vitamin D3) 50 50 mcg PO DAILY 04/11/25 04/29/25 mcg (2,000 unit) capsule gemfibrozil 600 mg tablet (Lopid) 600 mg PO DAILY 04/17/25 04/29/25 topiramate 100 mg tablet 100 mg PO BID 04/29/25 04/29/25 Previous Rx's Medication Instructions Recorded bupropion HCl 150 mg 24 hr tablet, 150 mg PO QAM 30 days #30 tabs 11/29/22 extended release (Wellbutrin XL) aspirin 81 mg tablet,delayed 81 mg PO QAM #30 tabs 09/29/24 release hydrocortisone 2.5 % topical 1 applic topical BID PRN itching 03/05/25 ointment #20 grams rimegepant 75 mg disintegrating 75 mg PO DIRECTED PRN Migraine 04/29/25 tablet (Nurtec ODT) Headache #8 tabs Results & Data (ED) Vital Signs Vital Signs - 24 hr 04/29/25 12:44 04/29/25 13:20 04/29/25 13:20 Temperature 36.8 C Temperature Source Temporal Artery Scan Pulse Rate 82 Pulse Rate [Apical] Respiratory Rate 19 Respiratory Effort / Characteristics Non-Labored Spontaneous Respiratory Depth Normal Respiratory Pattern Regular Blood Pressure 130/71 Blood Pressure [Left Arm] Blood Pressure Mean 90 Blood Pressure Mean [Left Arm] Blood Pressure Position [Left Arm] Pulse Oximetry 99 100 Oxygen Delivery Method Room Air Room Air Room Air Sepsis Recent Fever Within 48 Hours No Sepsis New/Unexplained Change in Mental Status N/A Sepsis Action Taken by Nursing No Action Required Oxygen Flow Rate - Titration 100 04/29/25 13:32 04/29/25 14:18 04/29/25 15:00 Temperature Temperature Source Pulse Rate 81 74 Pulse Rate [Apical] 76 Respiratory Rate 20 14 Respiratory Effort / Characteristics Non-Labored Spontaneous Respiratory Depth Normal Respiratory Pattern Regular Blood Pressure 104/64 Blood Pressure [Left Arm] 117/65 Blood Pressure Mean 77 Blood Pressure Mean [Left Arm] 82 Blood Pressure Position [Left Arm] Sitting Pulse Oximetry 98 98 Oxygen Delivery Method Room Air Room Air Sepsis Recent Fever Within 48 Hours Sepsis New/Unexplained Change in Mental Status Sepsis Action Taken by Nursing Oxygen Flow Rate - Titration Laboratory Data 04/29/25 12:58 04/29/25 12:58 Lab Results 04/29/25 04/29/25 Range/Units 12:58 16:19 WBC 5.60 (4.8-10.8) K/ul RBC 3.77 L (4.20-5.40) M/uL Hgb 11.7 L (12.0-16.0) g/dL Hct 35.1 L (37.0-47.0) % MCV 93.1 (80.0-100.0) fL MCH 31.0 (25.0-34.0) pg MCHC 33.3 (32.0-36.0) g/dL RDW Std Deviation 41.9 (36.4-46.3) fL RDW Coeff of Marilyn 12.2 (11.5-14.5) % Plt Count 274 (130-400) K/uL MPV 9.6 (9.4-12.4) fL Immature Gran % (Auto) 0.5 % Neut % (Auto) 60.3 % Lymph % (Auto) 18.9 % Reagan % (Auto) 5.7 % Eos % (Auto) 13.9 % Baso % (Auto) 0.7 % Neut # (Auto) 3.37 (1.40-6.50) K/uL Lymph # (Auto) 1.06 L (1.20-3.40) K/uL Reagan # (Auto) 0.32 (0.11-0.59) K/uL Eos # (Auto) 0.78 H (0.00-0.50) K/uL Baso # (Auto) 0.04 (0.00-0.20) K/uL Immature Gran # (Auto) 0.03 (0.01-0.20) K/uL PT 10.9 (9.0-12.0) Seconds INR 1.0 (0.9-1.1) APTT 26 (21-31) Seconds PTT Ratio 1.0 Sodium 136 (136-145) mmol/L Potassium 3.8 (3.5-5.1) mmol/L Chloride 106 (98-107) mmol/L Carbon Dioxide 22 (21-32) mmol/L Anion Gap 8 (3-11) BUN 16 (6-23) mg/dl Creatinine 1.66 H (0.6-1.2) mg/dl Est Cr Clr Drug Dosing 27.6 ml/min eGFR 33.82 BUN/Creatinine Ratio 9.6 L (10-20) Glucose 99 (70-99(Fasting)) mg/dl Calcium 9.1 (8.6-10.3) mg/dl Total Bilirubin 0.3 (0.2-1.0) mg/dl AST 18 (13-39) U/L ALT 9 (7-52) U/L Alkaline Phosphatase 74 (34-104) U/L Troponin I High Sens < 2.3 < 2.3 (0-14) pg/ml Total Protein 7.5 (6.0-8.3) gm/dl Albumin 4.3 (3.4-5.0) gm/dl Globulin 3.2 (2.5-4.0) gm/dl Albumin/Globulin Ratio 1.3 (0.9-2) Lipase 70 (11-82) U/L Administered Medications Discontinued Medications Aspirin (Aspirin Chew 324 Mg) 234 mg PO NOW STA Stop: 04/29/25 13:26 Last Admin: 04/29/25 13:29 Dose: 234 mg Documented By: MSThiago Nitroglycerin (Nitroglycerin Sl 0.4 Mg/Tab Tab) 0.4 mg SL NOW STA Stop: 04/29/25 13:27 Last Admin: 04/29/25 13:29 Dose: 0.4 mg Documented By: MSG Nitroglycerin (Nitroglycerin Sl 0.4 Mg/Tab Tab) 0.4 mg SL NOW STA Stop: 04/29/25 13:43 Last Admin: 04/29/25 13:52 Dose: 0.4 mg Documented By: MSG Imaging Data Radiologist's Impression: Chest X-Ray 04/29/25 13:16 XR chest 1V portable CLINICAL HISTORY: Chest pain, nonspecific COMPARISON STUDY: Chest CT February 13, 2025. Chest radiograph March 17, 2025. FINDINGS: Right shoulder arthroplasty and intracanalicular electrodes are incidentally noted. Lung volumes are normal. Lungs are clear. There is no pneumothorax or pleural effusion. Cardiac size is normal. Mediastinal contours are normal. There is no evidence for pulmonary edema. IMPRESSION: No acute cardiopulmonary findings. No change in appearance of the chest. ACT 112: Negative or not required by law. Electronically signed by: Adi Momin M.D. 04/29/2025 1:40 PM Discharge Plan Visit Data Chief Complaint: Cardiac Assessment Stated Complaint: TIGHT CHEST, SOB, BLURRY VISION ED Provider: Huber Erazo Discharge Problem: Chest pain, Anemia, CKD (chronic kidney disease) Condition: Fair Forms Stand Alone Forms: My [facility] [employer] Prescriptions Prescriptions: No Action bupropion HCl [Wellbutrin XL] 150 mg tablet extended release 24 hr 150 mg PO QAM 30 Days Qty: 30 2RF Nurtec ODT 75 mg tablet,disintegrating 75 mg PO DIRECTED PRN (Reason: Migraine Headache) Qty: 8 5RF Rx Instructions: 75 mg PO take one tablet at migraine onset as directed; gemfibrozil [Lopid] 600 mg tablet 600 mg PO DAILY hydrocortisone 2.5 % ointment 1 applic topical BID PRN (Reason: itching) Qty: 20 5RF Rx Instructions: apply twice daily to sensitive skin flares; do not exceed 7 days at a time of use levothyroxine 100 mcg tablet 100 mcg PO DAILY cholecalciferol (vitamin D3) 50 mcg (2,000 unit) capsule 50 mcg PO DAILY trazodone 50 mg tablet 100 mg PO HS Hold Instructions: Home Medication placed on hold at Doctor's office promethazine 12.5 mg tablet 12.5 mg PO Q6H PRN (Reason: Nausea And Vomiting) buspirone 15 mg tablet 15 mg PO TID docusate sodium [Colace] 100 mg Capsule 100 mg PO BID cyanocobalamin (vitamin B-12) [Vitamin B-12] 1,000 mcg tablet 1,000 mcg PO DAILY pantoprazole 40 mg tablet,delayed release (DR/EC) 40 mg PO BID Leqvio 284 mg/1.5 mL Syringe 284 mg subcut DIRECTED Rx Instructions: @ 6 MONTHS - aspirin 81 mg Tablet,Delayed Release (Dr/Ec) 81 mg PO QAM Qty: 30 0RF topiramate 100 mg tablet 100 mg PO BID Referrals Referrals: Madison Barry DO [Primary Care Provider] - Discharge Problem: Chest pain Qualifiers: Chest pain type: unspecified Qualified Code(s): R07.9 - Chest pain, unspecified Anemia Qualifiers: Anemia type: unspecified type Qualified Code(s): D64.9 - Anemia, unspecified CKD (chronic kidney disease) Qualifiers: Chronic kidney disease stage: unspecified stage Qualified Code(s): N18.9 - Chronic kidney disease, unspecified
[2025-04-29] MEDS: NITROGLYCERIN SL 0.4 MG/TAB TAB SL STA ×2 (13:29→13:52)
[2025-04-29] MEDS: ASPIRIN CHEW 324 MG PO STA (13:29)
[2025-04-29 13:37] LABS: Alanine Aminotransferase 9 U/L (7-52); Albumin Globulin Ratio 1.3 (0.9-2); Albumin Level 4.3 gm/dl (3.4-5.0); Alkaline Phosphatase 74 U/L (34-104); Anion Gap 8 (3-11); Bilirubin,Total 0.3 mg/dl (0.2-1.0); Blood Urea Nitrogen 16 mg/dl (6-23); Calcium 9.1 mg/dl (8.6-10.3); Carbon Dioxide 22 mmol/L (21-32); Chloride 106 mmol/L (98-107); Creatinine Clr Calc Pharmacy 27.6 ml/min; Globulin 3.2 gm/dl (2.5-4.0); Glucose 99 mg/dl (70-99(Fasting)); Potassium 3.8 mmol/L (3.5-5.1); Sodium 136 mmol/L (136-145); Total Protein 7.5 gm/dl (6.0-8.3)
--- NOTE | 2025-04-29 13:41 | XRay Report ---
XR chest 1V portable CLINICAL HISTORY: Chest pain, nonspecific COMPARISON STUDY: Chest CT February 13, 2025. Chest radiograph March 17, 2025. FINDINGS: Right shoulder arthroplasty and intracanalicular electrodes are incidentally noted. Lung vo lumes are normal. Lungs are clear. There is no pneumothorax or pleural effusion. Cardiac size is norm al. Mediastinal contours are normal. There is no evidence for pulmonary edema. IMPRESSION: No acute cardiopulmonary findings. No change in appearance of the chest. ACT 112: Negative or not required by law. Electronically signed by: Adi Momin M.D. 04/29/2025 1:40 PM
[2025-04-29 13:50] LABS: INR 1.0 (0.9-1.1); Partial Thromboplastin Time 26 Seconds (21-31); Prothrombin Time 10.9 Seconds (9.0-12.0)
[2025-04-29 14:07] LABS: Lipase 70 U/L (11-82)
--- NOTE | 2025-04-29 14:59 | History & Physical Report ---
Date of Service April 29, 2025 Assessment & Plan (1) Kidney disease, chronic, stage III (moderate, EGFR 30-59 ml/min): (2) Diabetes mellitus, type 2: (3) Hypothyroidism: (4) Coronary vasospasm: Plan #Chest painhistory of vasospastic anginasymptoms sound consistent. Fortunately symptoms have totally resolved and initial troponin is extremely low. This likely represents an episode of angina rather than an NSTEMI. Repeat troponin now. If negative, no further workup needed. If positive, echocardiogram. Management is the more difficult issueshe does not recall what symptoms she hadbut at last discharge cardiology was discussing starting her on a calcium channel blockerso I suspect she likely was on a peripheral calcium channel hector, and had some sort of intolerance. I have reached out to her cardiology team to clarify. If she was not on a calcium channel hector, obviously would start 1 at a low dose, if not probably consider long-acting nitrates. #Cerebrovascular disease status post strokecontinue aspirin #migrainesno headache at this time. Continue rather extensive home medication list #CKD roughly stage IIIcreatinine stable #prior history of diabeteslast A1c was 5.4 about 2 months ago. No current additional management needed #hypothyroidismcontinue Synthroid. Most recent TSH was 0.378 in mid January #DVT prophylaxisLovenox History of Present Illness Chief Complaint: chest pain Primary Care Provider: Madison Barry DO patient is a very pleasant 64-year-old female who had onset of chest pain this morningshe notes she was shoppinghad a chest tightness with associated shortness of breath and right jaw pain. It lasted for a few hours, and then finally let up with nitroglycerin. She did not take nitroglycerin on her own. Pain is now totally gone. She has had this happen beforebut not since September. Whenever she was discharged then with a diagnosis of coronary vasospasm, she was started on a medication that she does not remember, and had to stop it for side effects that she does not remembernotes that since her stroke her memory has been much more impaired. I have reached out to her cardiology team to gather insight. Again she is asymptomatic now. Allergies Allergy/AdvReac Type Severity Reaction Status Date / Time Penicillins Allergy Intermediate Hives Verified 04/17/25 11:37 vancomycin Allergy Intermediate Rash Verified 04/17/25 11:37 tramadol Allergy Mild Rash Verified 04/17/25 11:37 acetaminophen [From [place]] Allergy Unknown Unknown Unverified 04/17/25 11:37 hydrocodone [From [place]] Allergy Unknown Unknown Unverified 04/17/25 11:37 diphenhydramine Allergy Itching Verified 04/17/25 11:37 [From Benadryl] fluvastatin Allergy "Itchy all Verified 04/17/25 11:37 over" rosuvastatin Allergy "Itchy all Verified 04/17/25 11:37 over" tizanidine [From Zanaflex] AdvReac Severe Hallucinati Verified 04/17/25 11:37 ons metoclopramide [From Reglan] AdvReac Intermediate Constipatio Verified 04/17/25 11:37 n morphine AdvReac Intermediate N/V Verified 04/17/25 11:37 Home Medications Medication Instructions Recorded Confirmed Type trazodone 50 mg tablet 50 mg PO HS sleep 11/17/22 04/17/25 History bupropion HCl 150 mg 24 hr tablet, 150 mg PO QAM 30 days #30 tabs 11/29/22 04/17/25 Rx extended release (Wellbutrin XL) inclisiran 284 mg/1.5 mL 284 mg subcut DIRECTED 09/27/24 04/17/25 History subcutaneous syringe (Leqvio) pantoprazole 40 mg tablet,delayed 40 mg PO BID 09/27/24 04/17/25 History release aspirin 81 mg tablet,delayed 81 mg PO QAM #30 tabs 09/29/24 04/17/25 Rx release buspirone 15 mg tablet 15 mg PO TID 10/27/24 04/17/25 History promethazine 12.5 mg tablet 12.5 mg PO Q6H PRN Nausea And 10/27/24 04/17/25 His tory Vomiting reynyrlzbv-njjusmfbdjrvp-vgusiphm 1 cap PO TID PRN pain #3 caps 10/29/24 04/17/25 Rx 50 mg-300 mg-40 mg capsule (Fioricet) cyanocobalamin (vitamin B-12) 1,000 mcg PO DAILY 01/17/25 04/17/25 History 1,000 mcg tablet (Vitamin B-12) levothyroxine 100 mcg tablet 100 mcg PO DAILY 01/17/25 04/17/25 History docusate sodium 100 mg capsule 100 mg PO BID 02/13/25 04/17/25 History (Colace) hydrocortisone 2.5 % topical 1 applic topical BID PRN itching 03/05/25 04/17/25 Rx ointment #20 grams atogepant 60 mg tablet (Qulipta) 60 mg PO DAILY #30 tabs 03/18/25 04/17/25 Rx cholecalciferol (vitamin D3) 50 50 mcg PO DAILY 04/11/25 04/17/25 History mcg (2,000 unit) capsule gemfibrozil 600 mg tablet (Lopid) 600 mg PO DAILY 04/17/25 04/17/25 History rimegepant 75 mg disintegrating 75 mg PO DIRECTED PRN Migraine 04/29/25 Rx tablet (Nurtec ODT) Headache #8 tabs topiramate 100 mg tablet 50 mg (1/2 x 100 mg) PO BID 90 04/29/25 Rx days #90 tabs Past Med/Surg History Problem List Right lower quadrant abdominal pain Lipoma of right lower extremity Sensitive skin Pruritus Dry skin dermatitis Seizure-like activity Mass of soft tissue of right lower extremity Imbalance (Acute) Chest pain (Acute) Dizziness (Acute) Fall H/O: stroke with residual effects Stroke Coronary vasospasm Anemia Renal insufficiency Hypercholesterolemia Diabetes Abnormal stress echo Unstable angina Generalized weakness (Acute) Chest pain (Acute) Overactive bladder Flank pain Abnormal urine odor AMS (altered mental status) (Acute) Idiosyncratic reaction to medication after proper dose Gastroparesis reports constant nausea Migraines Osteopenia Pseudogout of hand Interstitial cystitis Impaired fasting blood sugar Memory loss Cognitive and behavioral changes Gastroparesis Secondary osteoarthritis, right shoulder Balance problem Fatty liver Depression with anxiety (Acute) Degenerative arthritis of right shoulder region Hyperlipidemia Medical History Chronic nausea Stroke-like symptoms Kidney disease, chronic, stage III (moderate, EGFR 30-59 ml/min) Diabetes mellitus, type 2 Hypothyroidism, postablative History of trigger finger (09/05/23) left trigger finger release 09/05/23, [facility] Hypothyroidism Chronic idiopathic constipation Cervical stenosis of spine following with Dr Richmond Camp 08/25/23 Hx of peptic ulcer Hx of peptic ulcer [id number] Hearing loss 33% Bilateral H/A Hx of papillary thyroid carcinoma status post completion thyroidectomy 08/2020 Ovarian cyst Left simple ovarian cyst ultrasound 03/2021 by MED AIDE Hiatal hernia Claustrophobia MVP (mitral valve prolapse) Reported per patient Not noted per 07/28/20 echo Fibromyalgia GERD (gastroesophageal reflux disease) Controlled Surgical History Status post right shoulder hemiarthroplasty Status post reverse total shoulder replacement right shoulder S/P foot surgery, left S/P foot surgery, right multiple History of laparoscopic appendectomy (06/19/22) Laparoscopic Appendectomy, laparoscopic lysis of adhesion Status post complete thyroidectomy (~08/2020) History of foot surgery R/L great toe surgeries Right foot bunionectomy and MTP arthroplasty (03/31/18): LMA#4 at [facility] Left foot great toe Arthrosurface hemiarthroplasty (04/03/21): LMA#4, attempt x1, atraumatic at [facility]. No issues noted per post-op anesthesia progress note. History of liver biopsy History of esophagogastroduodenoscopy (EGD) Hx of cholecystectomy History of partial hysterectomy TLH, ovaries retained Hx of section X3 Hx of carpal tunnel repair R/L Hx of thumb surgery R/L "joint removed" Hx of total knee replacement R/L Hx of elbow surgery R/L Hx of arthroscopy of shoulder right x2, left x1: resurfacing 04/15/20: Grade 1 view, MAC 3, ETT 7.0 + PNB. History of herniorrhaphy right inguinal repair History of colonoscopy History of tonsillectomy Family History Father Diabetes Myocardial infarction ? Sister Thyroid cancer Breast cancer Mother Alzheimer disease Hypertension Other No family history of adverse response to anesthesia Denies family history of Ovarian cancer Prostate cancer Lung cancer Colorectal cancer Uterine cancer Stroke Social History Smoking Status: Never smoker Second Hand Exposure: No; Do You Dip or Chew Tobacco: No; Hx Alcohol Use: No Hx Substance Use: No Preferred Language: Bruneian Communication Ability: Effective Visual Impairment: No Limitations Hearing Ability: Hard of Hearing Manager Competitive Intelligence Required: No Beliefs That Will Affect Care: None marital status: Current Living Situation: Spouse current occupational status: disabled How many Children do You have: 3 Feels Safe at Home: Yes Childhood Exposure to Second-Hand Smoke: No Diet: regular caffeine: No Dental Care, Regularly: Yes Seatbelt Use: never Assistive Devices: Glasses Review of Systems Review of Systems: All systems reviewed & are unremarkable except as noted in HPI & below Physical Exam Physical Exam: In general she is awake alert oriented pleasant no distress. HEENT normocephalic atraumatic mucous membranes moist. Cardio is regular without rubs murmurs or gallops. Lungs are clear without rales rhonchi or wheeze good effort. Abdomen is soft she has mild epigastric tenderness but it is totally different than the pain she was feeling. No guarding rebound or rigidity. Extremities are without sinus clubbing or edema. Results & Data Results & Data Vital Signs (Past 12 Hours) Vital Signs Temp Pulse Resp BP Pulse Ox O2 Del Method 04/29/25 14:18 74 20 104/64 98 Room Air 04/29/25 13:32 81 04/29/25 13:20 100 Room Air 04/29/25 13:20 Room Air 04/29/25 12:44 98.2 F 82 19 130/71 99 Room Air Code Status & VTE Plan VTE Prophylaxis Plan VTE Prophylaxis will be ordered: Yes PG Care Time/CCT Total # of Minutes Spent Total Time Spent with Patient: Total time spent is greater than 50% in coordination of care (as documented) at patient's floor/unit and/or counseling patient: Coding Level of Care Code 69889 INT INP/OBS CARE 3/75MIN Diagnoses Kidney disease, chronic, stage III (moderate, EGFR 30-59 ml/min) N18.30 Diabetes mellitus, type 2 E11.9 Hypothyroidism E03.9 Coronary vasospasm I20.1
--- NOTE | 2025-04-29 15:35 | Electrocardiogram Report ---
Test Reason : Blood Pressure : */* mmHG Vent. Rate : 78 BPM Atrial Rate : 78 BPM P-R Int : 126 ms QRS Dur : 72 ms QT Int : 386 ms P-R-T Axes : 5 31 48 degrees QTcB Int : 440 ms Normal sinus rhythm Low voltage QRS Borderline ECG When compared with ECG of 17-Mar-2025 00:56, No significant change was found Confirmed by Casey Platt ([id number]) on 04/29/2025 3:35:01 PM Referred By: REFERRED SELF Confirmed By: Casey Platt
[2025-04-29] MEDS ORDERED: MAGNESIUM HYDROXIDE SUSP 30 ML UDC PO PRN (17:56)
[2025-04-29] MEDS ORDERED: ONDANSETRON INJ 2 MG/ML 2 ML VIAL IV PRN (17:56)
[2025-04-29] MEDS ORDERED: PROMETHAZINE HCL 25 MG TAB PO PRN (17:56)
[2025-04-29] MEDS ORDERED: RIMEGEPANT SULFATE 75 MG OD TAB PO PRN (17:56)
[2025-04-29] MEDS ORDERED: MELATONIN 3 MG TAB PO PRN (17:56)
[2025-04-29] MEDS ORDERED: BUTALBITAL ACETAMINOPHEN CAFF PO PRN (17:56)
[2025-04-29] MEDS ORDERED: POLYETHYLENE (MIRALAX) 17 GM PACK PO PRN (17:56)
[2025-04-29] MEDS ORDERED: ALUMINUM/MAGNESIUM SUSP 30 ML UDC PO PRN (17:56)
[2025-04-29] MEDS: ENOXAPARIN INJ 30 MG/0.3 ML SYR SQ SCH (20:44)
[2025-04-29] MEDS: busPIRone 15 MG TAB PO SCH (20:45)
[2025-04-29] MEDS: TOPIRAMATE 100 MG TAB PO SCH (20:46)
[2025-04-29] MEDS: DOCUSATE SODIUM 100 MG CAP PO SCH (20:48)
[2025-04-30] MEDS: LEVOTHYROXINE SODIUM 100 MCG TABLET PO SCH (06:04)
[2025-04-30 07:29] VITALS: BP 110/68; PULSE 73; RESP 20; TEMP 98.6; O2SAT 98
--- NOTE | 2025-04-30 08:02 | Hospitalist Progress Note ---
Date of Service April 30, 2025 Assessment & Plan Admission and Anticipated Discharge Date Admission Date: April 29, 2025 Results & Data Results & Data Vital Signs (Past 12 Hours) Vital Signs Temp Pulse Pulse Resp BP Pulse Ox O2 Del Method 04/30/25 07:52 Room Air 04/30/25 07:28 37.0 C 73 20 110/68 98 Room Air 04/30/25 07:13 68 04/30/25 04:00 36.5 C 69 18 99/60 L 97 Room Air 04/29/25 23:52 36.7 C 67 18 100/54 L 94 Room Air 04/29/25 22:19 67
[2025-04-30] MEDS: RIMEGEPANT SULFATE 75 MG OD TAB PO ONE (08:41)
[2025-04-30] MEDS: CHOLECALCIFEROL 25 MCG (1000 UNITS) TAB PO SCH (08:41)
[2025-04-30] MEDS: ISOSORBIDE DINITRATE 20 MG TAB PO SCH (08:42)
[2025-04-30] MEDS: CYANOCOBALAMIN (B-12) 500 MCG TABLET PO SCH (08:42)
[2025-04-30] MEDS: ASPIRIN 81 MG ECTAB PO SCH (08:43)
--- NOTE | 2025-04-30 10:37 | Discharge Summary ---
Date of Service April 30, 2025 Admission HPI Per Admitting Provider patient is a very pleasant 64-year-old female who had onset of chest pain this morningshe notes she was shoppinghad a chest tightness with associated shortness of breath and right jaw pain. It lasted for a few hours, and then finally let up with nitroglycerin. She did not take nitroglycerin on her own. Pain is now totally gone. She has had this happen beforebut not since September. Whenever she was discharged then with a diagnosis of coronary vasospasm, she was started on a medication that she does not remember, and had to stop it for side effects that she does not remembernotes that since her stroke her memory has been much more impaired. I have reached out to her cardiology team to gather insight. Again she is asymptomatic now. Admission Exam Per Admitting Provider In general she is awake alert oriented pleasant no distress. HEENT normocephalic atraumatic mucous membranes moist. Cardio is regular without rubs murmurs or gallops. Lungs are clear without rales rhonchi or wheeze good effort. Abdomen is soft she has mild epigastric tenderness but it is totally different than the pain she was feeling. No guarding rebound or rigidity. Extremities are without sinus clubbing or edema. Principal Diagnosis vasospastic angina Discharge Exam Constitutional: no acute distress HEENT: NCAT, no conjunctival injection CV: RRR, extremities well-perfused, no LE edema Resp: lungs clear to auscultation, no increased work of breathing GI: nondistended MSK: no gross deformities Skin: warm, dry, no rash appreciated Neuro: alert, oriented, no focal neurologic deficit appreciated Discharge Data Allergies Allergy/AdvReac Type Severity Reaction Status Date / Time Penicillins Allergy Intermediate Hives Verified 04/17/25 11:37 vancomycin Allergy Intermediate Rash Verified 04/17/25 11:37 tramadol Allergy Mild Rash Verified 04/17/25 11:37 acetaminophen [From [place]] Allergy Unknown Unknown Unverified 04/17/25 11:37 hydrocodone [From [place]] Allergy Unknown Unknown Unverified 04/17/25 11:37 diphenhydramine Allergy Itching Verified 04/17/25 11:37 [From Benadryl] fluvastatin Allergy "Itchy all Verified 04/17/25 11:37 over" rosuvastatin Allergy "Itchy all Verified 04/17/25 11:37 over" tizanidine [From Zanaflex] AdvReac Severe Hallucinati Verified 04/17/25 11:37 ons metoclopramide [From Reglan] AdvReac Intermediate Constipatio Verified 04/17/25 11:37 n morphine AdvReac Intermediate N/V Verified 04/17/25 11:37 Consultations 04/29/25 14:23 ED Decision to Admit Stat Hospital Course (1) Coronary vasospasm: (2) Kidney disease, chronic, stage III (moderate, EGFR 30-59 ml/min): (3) Diabetes mellitus, type 2: (4) Hypothyroidism: Plan 64 year old female presented with chest pain: #Chest pain Likely vasospastic angina, consistent with previous history - relieved with SL nitro Negative trop x2, EKG without ischemic changes On review of cardiology notes, appears patient trialed amlodipine, isosorbide mononitrate, and ranolazine - all discontinued due to adverse effects. Patient tolerated dose of isorbide dinitrate in hospital - discharged on isosorbide dinitrate 20mg daily, recommend close follow up with cardiology for continued med titration. #Cerebrovascular disease status post strokecontinue aspirin #CKD 3b/4creatinine stable #prior history of diabeteslast A1c was 5.4 #hypothyroidismcontinue Synthroid Total Time Total Time Spent Total Time Spent (In Minutes): <30 Discharge Plan Discharge Items Patient Disposition: Home - Self-Care Reason For Visit: VASOSPASTIC ANGINA Discharge Diagnosis: coronary vasospasm Condition on Discharge: Fair Activity: As commented below Activity Comment: activity progression as tolerated Non-emergency contact: Primary Care Provider and Swing Manager Call non-emergency contact if: you have any medication questions and your symptoms worsen Follow-up/Referrals: Madison Barry DO [Primary Care Provider] - 05/03/25 10:00 am (Please arrive to your appointment 15 minutes earlier than the scheduled time.) Diet: Heart Healthy Addtl Attending Provider Instructions: You were admitted with chest pain, which we suspect was due to coronary vasospasm, similar to what you have experienced in the past. We started a medication called isosorbide dinitrate, which is like a long acting form of nitroglycerin. Please follow up with your carpet sewer for continued medication management. New Medications: Isosorbide Dinitrate: Please take one 20mg tab once daily. Pending Studies at Discharge: No Stand-Alone Forms: My [facility] [employer], Smoking Cessation Medications and DC Order Prescriptions: New isosorbide dinitrate 20 mg tablet 20 mg PO DAILY 30 Days Qty: 30 0RF Rx Instructions: allow nitrate-free interval of 12-14 hrs per 24-hr period Continued bupropion HCl [Wellbutrin XL] 150 mg tablet extended release 24 hr 150 mg PO QAM 30 Days Qty: 30 2RF Nurtec ODT 75 mg tablet,disintegrating 75 mg PO DIRECTED PRN (Reason: Migraine Headache) Qty: 8 5RF Rx Instructions: 75 mg PO take one tablet at migraine onset as directed; gemfibrozil [Lopid] 600 mg tablet 600 mg PO DAILY hydrocortisone 2.5 % ointment 1 applic topical BID PRN (Reason: itching) Qty: 20 5RF Rx Instructions: apply twice daily to sensitive skin flares; do not exceed 7 days at a time of use levothyroxine 100 mcg tablet 100 mcg PO DAILY cholecalciferol (vitamin D3) 50 mcg (2,000 unit) capsule 50 mcg PO DAILY trazodone 50 mg tablet 100 mg PO HS Hold Instructions: Home Medication placed on hold at Doctor's office promethazine 12.5 mg tablet 12.5 mg PO Q6H PRN (Reason: Nausea And Vomiting) buspirone 15 mg tablet 15 mg PO TID docusate sodium [Colace] 100 mg Capsule 100 mg PO BID cyanocobalamin (vitamin B-12) [Vitamin B-12] 1,000 mcg tablet 1,000 mcg PO DAILY pantoprazole 40 mg tablet,delayed release (DR/EC) 40 mg PO BID Leqvio 284 mg/1.5 mL Syringe 284 mg subcut DIRECTED Rx Instructions: @ 6 MONTHS - aspirin 81 mg Tablet,Delayed Release (Dr/Ec) 81 mg PO QAM Qty: 30 0RF topiramate 100 mg tablet 100 mg PO BID Discharge Orders: Discharge Order (Routine); Ordered 04/30/25 Ordered By: Miko Carter Admission Data Admit Date/Time: 04/29/25 14:57 Attending Provider: Huber Woods Admit Provider: Huber Woods Primary Care Provider: Madison Barry Other Providers: Huber Woods Other Interventions: Discharge Summary Assessment (RN) Last Done: 04/30/25 10:36 Supervising Physician Co-Signing Physician Notes I personally examined the patient and verified all nava points of history and exam, discussed case, and agree with decision making with Dr Carter feeling okay. No further angina. Did have a little bit of a migraine this morning, took some of her Nurtec and feeling better. Had not gotten up whenever I saw her, but later was walking without any significant dizziness/lightheadedness. [place] up to going home. Vitals noted, in general she is awake and alert pleasant no distress. HEENT normocephalic atraumatic mucous membranes moist. Breathing unlabored no accessory muscle use good effort. Skin without rashes pallor or icterus. Neuro without focal deficits. Vasospastic anginafortunately no SD. Angina has resolved and not returned. Had failed multiple attempts at anginal prophylaxisin discussion with her regularly cardiology teamtherefore tried very low-dose long-acting nitrates with isosorbide dinitrate 20 mg dailythus far she is tolerating. Updated her regular cardiology team. Safe/stable for home. Trial of 20 mg Isordil for the foreseeable future; have been encouraging patient to have a lower threshold to take her as needed nitrates as well. Resident Activity Tracking Resident Involvement: Resident Care Provided Care Provided: Adult Hospital Medicine
== END 2025-04-30 12:01 | disposition home or self-care (01) ==
LOC: ED 12:42 → 2N 12:42